=== PATIENT | male | born 1940 | race Caucasian/White ===

== ENCOUNTER 2017-05-13 16:49 | Emergency (ER) | payer MEDICARE, OTHER ==
[~2017-05-13] VITALS: Ht 175.3 cm; Wt 72.6 kg
[2017-05-13] MEDS ORDERED: CITALOPRAM HBR20 MG PO (17:08)
[2017-05-13] MEDS ORDERED: MECLIZINE HCL25 MG PO (18:46)
[2017-05-13] MEDS ORDERED: AUGMENTIN 875-1 EACH PO (19:10)
[2017-05-13] MEDS ORDERED: LEVAQUIN500 MG PO (19:12)
--- NOTE | 2017-05-13 20:30 | EKG ---
[facility] [address] [facility] [place] [address] Signed Atrial-paced rhythm Left bundle branch block Abnormal ECG No previous ECGs available Confirmed by COLLIN COLLAZO MD ([id number]) on 05/13/2017 8:29:52 PM Electronically Signed By: COLLIN COLLAZO MD 05/13/17 2030 PATIENT NAME: NAJMA DORSEY Electrocardiogram DATE OF : 36 PHYSICIAN: COLLIN COLLAZO MD REPORT #: [id number] REPORT IS CONFIDENTIAL AND NOT TO BE RELEASED WITHOUT AUTHORIZATION
== END 2017-05-13 19:50 | disposition home or self-care (01) ==
LOC: ED 16:49
DX: R42 Dizziness and giddiness (principal); J18.9 Pneumonia, unspecified organism; Z95.5 Presence of coronary angioplasty implant and graft; Z90.89 Acquired absence of other organs
CPT/HCPCS: 71045; 80053; 83605; 84484; 85025; 87040; 93005; 93010; 99284

== ENCOUNTER 2017-06-16 14:19 | Inpatient (IN) | payer MEDICARE, OTHER ==
[~2017-06-16] VITALS: Ht 175.3 cm; Wt 75.1 kg
--- OUTSIDE RECORDS SUMMARY | ~2017-06-16 | XMS | Clinical Summary ---
Demographics + + + | Address | [address] | | | [place] [address] | + + + | Home Phone [...] Team Providers + +------+ + | Care Mica Paster Name | Role | Phone | + +------+ + PP | Unavailable | + +------+ + Source Comments JIGNESH is fully live on both [facility] Amb[facility] and [facility] InPatient.[facility] Allergies Not on File Current Medications Not [...]
--- OUTSIDE RECORDS SUMMARY | ~2017-06-16 | XMS | Clinical Summary ---
Demographics + + + | Address | [address] | | | [place] [address] | + + + | Home Phone | | + + + | Preferred Language | Unknown | + + + | Marital Status | | + + + | Zoroastrian Affiliation | Unknown | + + + [...] Team Providers + +------+ + | Care Finish Molder Name | Role | Phone | + +------+ + PP | Unavailable | + +------+ + Source Comments JIGNESH is fully live on both [facility] Amb[facility] and [facility] InPatient.[facility] & [facility] Allergies Not on File Current [...]
[~2017-06-16 14:19] MED LIST: AUGMENTIN 875-1 EACH PO; CITALOPRAM HBR20 MG PO; LEVAQUIN500 MG PO; MECLIZINE HCL25 MG PO
--- OUTSIDE RECORDS SUMMARY | 2017-06-16 17:59 | XMS | Clinical Summary ---
Demographics + + + | Address | [address] | | | [place] [address] | + + + | Home Phone | | + + + | Preferred Language | Unknown | + + + | Marital Status | | + + + | Christianity Affiliation | Unknown | + + + | Race | White | + + + | Ethnic Group | Not or | + + + Author + + + | Organization | Unknown | + + + | Address | Unknown | + + + | Phone | Unavailable | + + + Support +------+ +---------+ + | Name | Relationship | Address | Phone | +------+ +---------+ + ECON | Unknown | | +------+ +---------+ + Care Team Providers + +------+ + | Care Farm Appraiser Name | Role | Phone | + +------+ + PP | Unavailable | + +------+ + Source Comments JIGNESH is fully live on both [facility] Ambulatory and [facility] InPatient.[facility] Allergies Not on File Current Medications Not on file Active Problems Not on file Social History + +-------+ +--------+------+ | Tobacco Use | Types | Packs/Day | Years | Date | | | | | Used | | + +-------+ +--------+------+ | Never Assessed | | | | | + +-------+ +--------+------+ + + + | Sex Assigned at | Date Recorded | | | | + + + | Not on file | | + + + Plan of Treatment + + + + + | Health Maintenance | Due Date | Last Done | Comments | + + + + + | INFLUENZA VACCINE | | | | | (FLU SHOT) | 7 | | | + + + + + Results Not on filefrom Last 3 Months"
[2017-06-16] MEDS ORDERED: CITALOPRAM HBR20 MG PO (18:18)
[2017-06-16] MEDS ORDERED: UNITHROID50 MCG PO (18:18)
[2017-06-16] MEDS ORDERED: FOLIC ACID1 MG PO (18:18)
[2017-06-16] MEDS ORDERED: METHOTREXATE2.5 MG PO (18:20)
[2017-06-16] MEDS ORDERED: LIPITOR40 MG PO (18:20)
[2017-06-16] MEDS ORDERED: HYDROXYCHLOROQ200 MG PO (18:21)
[2017-06-16] MEDS ORDERED: B-125000 MC2 PO (18:22)
[2017-06-16] MEDS ORDERED: FEROSUL325 MG PO (18:22)
[2017-06-16] MEDS ORDERED: ASPIR 8181 MG PO (18:23)
--- NOTE | 2017-06-16 20:10 | NUR ---
IN TO ASSESS PT. IS ALERT AND COOPERATIVE. STOOD AT BEDSIDE TO VOID 175ML ORANGE URINE. PT WOULD PREFER TO NOT HAVE CATHETER. DR COLLAZO CALLED RE URINE OUTPUT. 500ML BOLUS ORDERED.
--- NOTE | 2017-06-16 21:30 | NUR ---
IN WITH PT WITH RT WHILE SALINE NEB GIVEN. PT THEN STOOD AT BEDSIDE TO VOID AND THEN HAVE SHEETS CHANGED HAD BEEN DIAPHORETIC. REED BEING UP WELL. STATES THAT IT FEELS GOOD TO MOVE.
--- NOTE | 2017-06-16 22:42 | NUR ---
FAMILY BROUGHT IN PT CPAP MACHINE FROM HOME. CONTACTED DR COLLAZO AND RECEIVED AN ORDER. RT NOTIFIED.
--- NOTE | 2017-06-17 00:10 | NUR ---
PT HAS CPAP IN PLACE FOR SLEEP. BREIF ASSESSMENT DONE.
--- NOTE | 2017-06-17 01:34 | NUR ---
URINE SENT TO LAB
--- NOTE | 2017-06-17 03:00 | NUR ---
SLEEPING SOUNDLY WITH CPAP IN PLAC.
--- NOTE | 2017-06-17 05:10 | NUR ---
AWAKENED FOR ASSESSMENT. NO C/O EXCEPT BEING THIRSTY AND ASKING ABOUT WATER. INFORMED COULD NOT HAVE WATER UNTIL FURTHER EVALUATION. UP TO VOID AND REED WELL. LAB IN TO DRAW BLOOD.
--- NOTE | 2017-06-17 09:57 | NUR ---
PT UP TO JEFFERSON CHAIR THIS A.M. REQUESTING SOMETHING TO EAT. PT NPO BUT SPEECH EVAL IS ORDER FOR TODAY. IN ROOM. VITAL SIGNS COMPLETED. SPEECH THERAPY HERE AND SWALLOWING STUDY IN PROGRESS.
--- NOTE | 2017-06-17 10:08 | NUR ---
PT RETURNED TO ROOM AFTER AMBULATING - HR 104. WITHIN 5 MINS HR 88-95.
--- NOTE | 2017-06-17 12:17 | NUR ---
SWALLOW STUDY COMPLETED AND PT WAS ABLE TO SWALLOW WITH MINIMAL DIFFICULTY. PT REMAINS UP IN JEFFERSON CHAIR WITH AT BEDSIDE. PT ATE CREAM OF WHEAT FOR LUNCH, ASSESSMENT COMPLETED AND DENIES C/O AT THIS TIME. VITAL SIGNS COMPLETED LUNGS REMAIN WITH RHONCHI IN RIGHT UPPER/LOWER LUNGS.
--- NOTE | 2017-06-17 15:04 | NUR ---
I/O'S COMPLETED, PT REQUESTING CHOCOLATE PUDDING AND REED WELL.
--- NOTE | 2017-06-17 15:33 | NUR ---
PT RESTING IN JEFFERSON CHAIR. STOOD TO VOID 350 MLS CLEAR YELLOW URINE. FAMILY WITH PT.
--- NOTE | 2017-06-17 16:08 | NUR ---
REPORT GIVEN TO MED/SURG NURSE. VITAL SIGNS COMPLETED AND PT TRANSFERRED TO ROOM 121 VIA JEFFERSON CHAIR.
--- NOTE | 2017-06-17 16:50 | NUR ---
PT ARRIVED TO MED/SURG VIA CHAIR ON WHEELS. PT MOVED TO ROOM WITH A VIEW. PT SITUATED IN A WAY THAT HE CAN SEE THE VIEW. FAMILY AT CHAIRSIDE. PT PLACES DINNER ORDER. PT AGREEABLE TO 2ND PIV START. PIV STARTED PER PROTOCOL BY THIS RN. ASSESSEMENT DONE. PT BELONGINGS AT BEDSIDE. PT VERBALIZES UNDERSTANDING OF PLAN OF CARE. PT STATES NO FURTHER REQUESTS OR COMLAINTS AT THIS TIME. CALL LIGHT WITHIN REACH.
--- NOTE | 2017-06-17 17:45 | NUR ---
DINNER ARRIVED ORDERED. PT OBSERVED WHILE EATING. MINIMAL COUGHING SEEN WITH EATING. PT COMPLAINS THAT COFFEE IS TOO THICK. COFFEE THINNED SOME AND HEATED. EDUCATION PROVIDED FOR PT TO WHY COFFEE CANNOT BE THINNED MORE. PT VERBALIZES UNDERSTANDING BUT STATE "I DON'T LIKE IT THAT WAY." VERBALIZES UNDERSTANDING AND REINFORCES TEACHING TO PT. DAMIR STARTED. LIPITOR ORDERED A PILL. THIS RN CHECKED WITH PHARMACY AND PHARMACIST STATES THAT LIPIOTR CAN BE GROUND AND GIVEN GROUND AND IN PUDDING. PT TAKES LIPITOR THIS WAY. PT FINISHING DINNER UNDER NURSE OBSERVATION. CALL LIGHT WITHIN REACH. PT BELONGINGS WITHIN REACH. FAMILY AT BEDSIDE.
--- NOTE | 2017-06-17 18:24 | NUR ---
PT ARRIVED FROM CCU TODAY. HERE FOR RLL PNEUMONIA AND SEPSIS. LUNGS REMAIN WET WITH RONCHI. O2 SATURATIONS REMAIN ABOVE 92% ON ROOM AIR. PT HX OF THROAT CA, WITH REMAINING SWALLOWING DIFFICULTIES. DISPHAGIC GROUND DIET WITH NECTAR THICK DIET FOLLOWED. DM II, NO CBGS ORDERED. PT INDEPENDANT IN ROOM. SOME DIFFICULTIES SPEAKING R/T HX. IV ABX GIVEN ORDRED. 2ND PIV STARTED FOR MULTIPLE IV ABX. URIN OP QUANITITY SUFFICIENT. BM TODAY. SMALL FOOD QUANTITY CONSUMED R/T DIFFICULTY WITH DIET.
--- NOTE | 2017-06-17 19:07 | NUR ---
IN ROOM FOR REPORT, PT IS AWAKE IN CHAIR, AND WOULD LIKE TO TAKE A WALK SOON. PT DENIES PAIN OR FURTHER NEEDS.
--- NOTE | 2017-06-17 20:02 | NUR ---
ROUNDED CHARGE. PATIENT IS RESTING IN RECLINER. PATIENT DENIES ANY COMMENTS, QUESTIONS, OR CONCERNS. NO NEEDS NOTED.
--- NOTE | 2017-06-17 22:20 | NUR ---
ASSESSMENT COMPLETE AND PT IS IN BED WITH CPAP ON. IS STAYING THE NIGHT. RHONCHI AUSCULATED ON RT LUNG FIELD. PT IS A 1PA. REMINDED PT TO COUGH/DEEP BREATHE AND USE IS. PT DENIES PAIN, NAUSEA AND WEAKNESS, CALL LIGHT IS WITHIN REACH, PT WOULD LIKE DOOR AND CURTAIN CLOSED.
--- NOTE | 2017-06-18 01:05 | NUR ---
PT'S IV PUMP WAS BEEPING, PT LYING AWAKE IN BED WITH CPAP ON. EMPTIED URINAL AND PT DENIES FURTHER NEEDS. CALL LIGHT IS WITHIN REACH.
--- NOTE | 2017-06-18 02:19 | NUR ---
EMPTIED PT'S URINAL, CPAP ON, RESPIRATIONS EVEN AND NONLABORED.
--- NOTE | 2017-06-18 05:30 | NUR ---
PT DID WELL THROUGH THE NIGHT WITH CPAP ON. VOIDING QS. LUNGS SOUNDS IN RT LOBES CONTINUE TO SOUND COARSE, PT HAS LOOSE COUGH. PT IS 1PA AND USED CALL LIGHT APPROPRIATELY.
--- NOTE | 2017-06-18 06:21 | NUR ---
BROUGHT PT CRUSHED THYROID MEDICINE IN PUDDING AND NECTAR THICK JUICE. IV ZOSYN INFUSING HOLDING OFF ON VANCO UNTIL VANCO TROUGH IS COMPLETE. PT HAS NO FURTHER REQUESTS AT THIS TIME.
--- NOTE | 2017-06-18 07:10 | NUR ---
GETTING REPORT FROM CAMI CESAR. PATIENT SAID HE DID NOT SLEEP VERY WELL BEING AWAY FROM HOME. AWAITING TROUGH RESULTS TO [facility]. PATIENT GOING TO REST SOMEMORE BEFORE BREAKFAST. INTRODUCED MYSELF AND LET PATIENT KNOW i WOULD BE BACK.
--- NOTE | 2017-06-18 07:30 | NUR ---
PATIENT IS UP AT BEDSIDE AND HE IS DOING WELL, SLEPT WELL. I AM GETTING REPORT FROM CAMI GRIMM AT THIS TIME.
--- NOTE | 2017-06-18 07:30 | NUR ---
Vancomycin trough this morning = 11.5. Increase dose to 1500mg IV q 12 hrs. Begin now
--- NOTE | 2017-06-18 08:49 | NUR ---
BS TAKEN, RN NOTIFIED. PT STATES NO NEEDS AT THIS TIME. CALL LIGHT IN REACH.
--- NOTE | 2017-06-18 10:00 | NUR ---
PATIENT VISITING WITH HIS IN ROOM AWAITING DISCHARGE ORDERS FROM DR. DODD.
--- NOTE | 2017-06-18 10:00 | NUR ---
PATIENT VISITING FAMILY AT BEDSIDE. NO C/O PAIN OR SHORTNESS OF BREATH.
--- NOTE | 2017-06-18 10:07 | NUR ---
PT IS SITTING UP IN CHAIR WATCHING TV. WARM BLANKET GIVEN. PT HAS NO OTHER NEEDS AT THIS TIME. VS AND I&O'S TAKEN AND DOCUMENTED. CALL LIGHT IS IN REACH.
--- NOTE | 2017-06-18 14:56 | NUR ---
VS AND I&O'S TAKEN AND DOCUMENTED. PT HAS NO NEEDS AT THIS TIME. INFORMED PT AND FAMILY TO CALL IF THEY NEEDED ANYTHING. CALL LIGHT IS IN REACH.
--- NOTE | 2017-06-18 16:00 | NUR ---
PATIENT CONTINUES TO STAY IN HIS ROOM, VERY PRIVATE WITH THE DOOR AND CURTAIN CLOSED. PATIENT HAS BEEN VISITING WITH HIS ALL DAY. JUST HAD A VISIT WITH THE PHARMACIST AND HAS ALSO HAD A CONSULT WITH DIETARY TO TEACH HIM HOW TO MAKE HIS LIQUIDS NECTOR THICK.
--- NOTE | 2017-06-18 16:50 | NUR ---
Medications reconciled with physician's chart notes and patient/ interview
--- NOTE | 2017-06-18 17:18 | NUR ---
PATIENT HAS HAD A GOOD DAY. HAS BEEN AT BEDSIDE ALMOST ALL DAY. PATIENT HAS HAD DIETARY TRY AND TEACH HIM HOW TO MAKE NECTOR THICK LIQUIDS. HE HAS EATEN FAIRLY WELL. STILL HAS 2 IV'S PATENT. 18G LAC AND 20G RFA SO THAT ZOSYN AND VANCO CAN BE RUN AT SEPERATE SITES IF THEY OVER LAP. LUGS STILL SOUND FAIRLY JUNKY, BUT IS MOVING GOOD AIR AND SATS, NOT SURE HOW MUCH SOUND IS VIBRATING DOWN FROM HIS THROAT FROM THE CA SURGERY. PATIENT HATES NECTOR THICK LIQUIDS , BUT HAS TAKEN CRUSHED PO MEDS IN PUDDING JUST FINE. PREFERS CHOCOLATE PUDDING.
--- NOTE | 2017-06-18 19:40 | NUR ---
PATIENT ASSSEMENT COMPLETED. PATIENTS IV ABX STARTED. PATIENT DENIES ANY PAIN. PATIENTS BEDDING CHANGED PER REQUEST. PATIENTS REMAINS AT THE BEDSIDE AND IS VERY ATTENTIVE. PATIENT DENIES ANY FURTHER NEEDS AT THIS TIME. PATIENT AND ARE RESTING IN THE RECLINER AND CHAIR WATCHING TV.
--- NOTE | 2017-06-18 20:56 | NUR ---
PATIENTS EVENING MEDCIATIONS GIVEN PER ORDER. PATIENT AND CONTINUE TO REST IN CHAIRS WATCHING TV. NO NEEDS NOTED. CALL LIGHT IN REACH.
--- NOTE | 2017-06-18 21:30 | NUR ---
DAMIR DONE INFUSING. PATIENT ASSISTED INTO BED. NO NEEDS NOTED. CALL LIGHT IN REACH.
--- NOTE | 2017-06-18 22:45 | NUR ---
VITALS AND I&OS DONE AND CHARTED. BEDSIDE TABLE AND CALL LIGHT WITHIN REACH.
--- NOTE | 2017-06-19 00:37 | NUR ---
PATIENT IS RESTING IN BED WEARING HOME CPAP. PATIENT AWOKEN WHEN ROOM WAS ENTERED. PATIENT ASSESED AT THIS TIME. NO NEEDS NOTED. IS ASLEEP ON THE COUCH IN THE ROOM. CALL LIGHT IN REACH.
--- NOTE | 2017-06-19 02:28 | NUR ---
PATIENT IS RESTING IN BED WEARING HOME CPAP. BREATHING IS EVEN AND UNLABORED, RR 16. REMAINS ASLEEP ON THE COUCH. CALL LIGHT IN REACH.
--- NOTE | 2017-06-19 04:19 | NUR ---
PATIENT CALLED AND REQUESTED HIS URINAL TO BE EMPTIED. PATIENT CONTINUES TO WEAR HOME CPAP. PATIENT DENIES ANY FURTHER NEEDS. CALL LIGHT IN REACH.
--- NOTE | 2017-06-19 05:07 | NUR ---
PATIENT RESTED WELL THROUGHTOUT THE SHIFT. PATIENT WORE HOME CPAP WHILE RESTING. PATIENT IS ON RA. PATIENT IS ON DYSPHAGIA GROUND DIET, W/NECTAR THICK LIQUID. PATIENT STRUGGLES WITH TEXTURE OF HIS DIET. PATIENT IS A SBA AND IS STEADY ON HIS FEET. PATIENT IS ON ASPERATION PRECAUTIONS. PATIENTS REMAINS IN THE ROOM AND IS ATTENTIVE TO PATIENTS NEEDS. PATIENT IS AAOX3. PATIENTS SPEECH IS HARD TO UNDERSTAND AT TIMED. PATIENT USES CALLL LIGHT APPROPRIATELY.
--- NOTE | 2017-06-19 06:30 | NUR ---
PATIENTS MORNING MEDICATIONS GIVEN PER ORDER. PATIENT DENIES ANY PAIN OR SOB. PATIENT WAS ABLE TO TAKE PO MEDICATIONS CRUSHED IN CHOCOLATE PUDDING. VITALS TAKEN AND RECORDED. NO NEEDS NOTED. CALL LIGHT IN REACH.
--- NOTE | 2017-06-19 08:35 | NUR ---
st in room to assist patient with breakfast. no other needs at this time.
--- NOTE | 2017-06-19 10:25 | NUR ---
PATIENT SITTING IN CHAIR. FAMILY AT BEDSIDE. PATIENT PLAN OF GETTING IN THE SHOWER WITH DUCT LAYER HELPER HELP. DR. DODD ROUNDED IN ROOM. PLAN TO DISCHARGE PATIENT HOME.
[2017-06-19] MEDS ORDERED: CLINDAMYCIN HC300 MG PO (10:39)
--- NOTE | 2017-06-19 10:42 | NUR ---
PATIENT IS IN TAKING A SHOWER. IS IN THERE WITH HIM BUT I AM OUTSIDE HIS BATHROOM DOOR MAKING SURE EVERYTHING IS OK. THEN HE WILL GET DRESSED.
--- NOTE | 2017-06-19 11:42 | NUR ---
PATIENT FINISHED SHOWER. DRESSED IN OWN CLOTHING. SET UP FOR LUNCH. PHARMACY IN ROOM TO GO OVER DISCHARGE MEDICATION.
== END 2017-06-19 12:25 | disposition home or self-care (01) | DRG 179 ==
LOC: ED 14:19 → CCU 17:58 → MS 06-17 16:26
PROVIDERS: ADMIT Internal Medicine
DX: J69.0 Pneumonitis due to inhalation of food and vomit (principal); I35.0 Nonrheumatic aortic (valve) stenosis; E78.5 Hyperlipidemia, unspecified; E03.9 Hypothyroidism, unspecified; F32.9 Major depressive disorder, single episode, unspecified; M06.9 Rheumatoid arthritis, unspecified; R13.12 Dysphagia, oropharyngeal phase; I49.9 Cardiac arrhythmia, unspecified; Z85.819 Personal history of malignant neoplasm of unspecified site of lip, oral cavity, and pharynx; Z95.0 Presence of cardiac pacemaker; Z92.3 Personal history of irradiation
CPT/HCPCS: 36415; 71045; 80053; 80202; 81001; 83605; 83735; 85025; 87070; 87077; 87186; 87205; 92526; 92610; 94640; J1650; J2543; J3370; J3475; J3480; J7030; J7040; J7050; J7120

== ENCOUNTER 2017-07-07 11:11 | Emergency (ER) | payer MEDICARE, OTHER ==
[~2017-07-07] VITALS: Ht 172.7 cm; Wt 73.5 kg
--- OUTSIDE RECORDS SUMMARY | ~2017-07-07 | XMS | Clinical Summary ---
Demographics + + + | Address | [id number] [place] [address] | | | [place] [address] | + + + | Home Phone | | + + + | Preferred Language | Unknown | + + + | Marital Status | | + + + | Jain Affiliation | None | + + + [...] Team Providers + +------+ + | Care Pipe [address] Service Name | Role | Phone | + [...] + + + + | Zoster Vaccine | | | | | | 9 [...]
--- OUTSIDE RECORDS SUMMARY | ~2017-07-07 | XMS | Clinical Summary ---
Demographics + + + | Address | [id number] [place] [address] | | | [place] [address] | + + + | Home Phone | | + + + | Preferred Language | Unknown | + + + | Marital Status | | + + + | Druze Affiliation | None | + + + [...] Team Providers + +------+ + | Care Pocket Setter Name | Role | Phone | [...]
--- OUTSIDE RECORDS SUMMARY | ~2017-07-07 | XMS | Clinical Summary ---
Demographics + + + | Address | [address] | | | [place] [address] | + + + | Home Phone | | + + + | Preferred Language | Unknown | + + + | Marital Status | | + + + | Rastafarian Affiliation | Unknown | + + + [...] Team Providers + +------+ + | Care Certified Scrum Master Name | Role | Phone | + +------+ + PP | Unavailable | + +------+ + Source Comments JIGNESH is fully live on both [facility] Ambulatory and [facility] InPatient.[facility] Allergies Not on File Current Medications Not [...]
--- OUTSIDE RECORDS SUMMARY | ~2017-07-07 | XMS | Clinical Summary ---
Demographics + + + | Address | [address] | | | [place] [address] | + + + | Home Phone [...] Team Providers + +------+ + | Care Auto Body Estimator Name | Role | Phone | + +------+ + PP | Unavailable | + +------+ + Source Comments JIGNESH is fully live on both [facility] and [facility] InPatient.[facility] Allergies Not on File Current Medications [...]
[~2017-07-07 11:11] MED LIST changes: +ASPIR 8181 MG PO; +B-125000 MC2 PO; +CLINDAMYCIN HC300 MG PO; +FEROSUL325 MG PO; +FOLIC ACID1 MG PO; +HYDROXYCHLOROQ200 MG PO; +LIPITOR40 MG PO; +METHOTREXATE2.5 MG PO; +UNITHROID50 MCG PO
--- NOTE | 2017-07-08 20:49 | EKG ---
[facility] [address] [facility] [place] [address] Signed Atrial-paced rhythm with prolonged AV conduction Left bundle branch block Abnormal ECG When compared with ECG of 13-MAY-2017 17:08, Questionable change in QRS axis T wave inversion less evident in Inferior leads T wave inversion no longer evident in Anterior leads Confirmed by COLLIN COLLAZO MD ([id number]) on 07/08/2017 8:49:15 PM Electronically Signed By: COLLIN COLLAZO MD 07/08/17 2049 PATIENT NAME: NAJMA DORSEY Electrocardiogram DATE OF : 36 PHYSICIAN: COLLIN COLLAZO MD REPORT #: [id number] REPORT IS CONFIDENTIAL AND NOT TO BE RELEASED WITHOUT AUTHORIZATION
== END 2017-07-07 15:49 | disposition home or self-care (01) ==
LOC: ED 11:11
DX: R50.9 Fever, unspecified (principal); Z88.5 Allergy status to narcotic agent; Z79.899 Other long term (current) drug therapy
CPT/HCPCS: 71045; 80053; 81001; 83605; 85025; 87040; 93005; 93010; 96374; 99283; J0696

== ENCOUNTER 2017-07-23 16:33 | Emergency (ER) | payer MEDICARE, OTHER ==
[~2017-07-23] VITALS: Ht 172.7 cm; Wt 73.7 kg
--- OUTSIDE RECORDS SUMMARY | ~2017-07-23 | XMS | Clinical Summary ---
Demographics + + + | Address | [address] [place] [address] | | | [place] [address] | + + + | Home Phone | | + + + | Preferred Language | Unknown | + + + | Marital Status | | + + + | Presybeterian Affiliation | None | + + + | Race | White | + + + | Ethnic Group | Unknown | + + + Author + + + | Author | [facility] | + + + | Organization | [facility] | + + + | Address | Unknown | + + + | Phone | Unavailable | + + + Care Team Providers + +------+ + | Care Medical Lab Technologist Name | Role | Phone | + +------+ + PP | Unavailable | + +------+ + Allergies Not on File Current Medications Not [...] | + + + + + | Tetanus | | | | | | 8 | | | + + + + + | Zoster Vaccine (#1) | | | | | | 9 | | | + + + + + | Pneumo 65+ (1 of 2 - | | | | | PCV13) | 4 | | | + + + + + | IMM Influenza (#1) | | | | | | 7 | | | + + + + + Results Not on filefrom Last 3 Months"
--- OUTSIDE RECORDS SUMMARY | ~2017-07-23 | XMS | Clinical Summary ---
Demographics + + + | Address | [address] | | | [place] [address] | + + + | Home Phone | | + + + | Preferred Language | Unknown | + + + | Marital Status | | + + + | Episcopal Affiliation | Unknown | + + + [...] Team Providers + +------+ + | Care News Cameraman Name | Role | Phone | + +------+ + PP | Unavailable | + +------+ + Source Comments JIGNESH is fully live on both [facility] Ambulatory and [facility] InPatient.[facility] Allergies Not on File Current Medications [...]
[2017-07-23] MEDS ORDERED: AUGMENTIN 875-1 EACH PO (19:12)
== END 2017-07-23 19:37 | disposition home or self-care (01) ==
LOC: ED 16:33
DX: H66.92 Otitis media, unspecified, left ear (principal); Z88.5 Allergy status to narcotic agent; Z79.899 Other long term (current) drug therapy; Z79.82 Long term (current) use of aspirin
CPT/HCPCS: 71046; 80053; 81001; 83605; 85025; 85651; 87040; 87077; 87186; 99283

== ENCOUNTER 2017-08-02 12:11 | Emergency (ER) | payer MEDICARE, OTHER ==
[~2017-08-02] VITALS: Ht 172.7 cm; Wt 71.9 kg
[2017-08-02] MEDS ORDERED: VANCOMYCIN HCL125 MG PT (12:47)
[2017-08-02] MEDS ORDERED: CEFTRIAXON2 GM/50 ML IV (12:47)
[2017-08-02] MEDS ORDERED: PLAVIX75 MG PO (12:48)
--- OUTSIDE RECORDS SUMMARY | 2017-08-02 12:51 | XMS | Clinical Summary ---
Demographics + + + | Address | [address] | | | [place] [address] | + + + | Home Phone | | + + + | Preferred Language | Unknown | + + + | Marital Status | | + + + | Latter-Day Affiliation | Unknown | + + + | Race | White | + + + | Ethnic Group | Not or | + + + Author + + + | Organization | Unknown | + + + | Address | Unknown | + + + | Phone | Unavailable | + + + Support + + +---------+ + | Name | Relationship | Address | Phone | + + +---------+ + | XENIA DORSEY | ECON | Unknown | | + + +---------+ + Care Team Providers + +------+ + | Care Alcohol Still Operator Name | Role | Phone | + +------+ + PP | Unavailable | + +------+ + Source Comments JIGNESH is fully live on both [facility] Ambulatory and [facility] InPatient.[facility] Allergies Not on File Current Medications Not [...]
--- OUTSIDE RECORDS SUMMARY | 2017-08-02 12:51 | XMS | Clinical Summary ---
Demographics + + + | Address | [address] | | | [place] [address] | + + + | Home Phone | | + + + | Preferred Language | Unknown | + + + | Marital Status | | + + + | Congregation Affiliation | Unknown | + + + [...] Team Providers + +------+ + | Care Manager Of Allied Health Services Name | Role | Phone | + +------+ + PP | Unavailable | + +------+ + Source Comments JIGNESH is fully live on both [facility] Ambulatory and [facility] InPatient.[facility] Allergies Not on File Current Medications Not [...]
== END 2017-08-02 14:25 | disposition home or self-care (01) ==
LOC: ED 12:11
DX: A04.72 Enterocolitis due to Clostridium difficile, not specified as recurrent (principal); Z88.5 Allergy status to narcotic agent; Z88.8 Allergy status to other drugs, medicaments and biological substances; Z79.899 Other long term (current) drug therapy; Z79.82 Long term (current) use of aspirin; Z79.2 Long term (current) use of antibiotics; C80.1 Malignant (primary) neoplasm, unspecified
CPT/HCPCS: 99282

== ENCOUNTER 2017-12-07 16:31 | Emergency (ER) | payer MEDICARE, OTHER ==
[~2017-12-07] VITALS: Ht 165.1 cm; Wt 68.3 kg
[~2017-12-07 16:31] MED LIST changes: -ASPIR 8181 MG PO; +BAYER CHEWABLE81 MG PO; +CEFTRIAXON2 GM/50 ML IV; +FIRVANQ25 MG/1 ML PO; +PLAVIX75 MG PO; +VANCOMYCIN HCL125 MG PT
[2017-12-07] MEDS ORDERED: PLAQUENIL200 MG PO (16:48)
[2017-12-07] MEDS ORDERED: PLAVIX75 MG PO (16:48)
--- NOTE | 2017-12-09 13:34 | NUR ---
CHW met with patient on a home visit on 12/08/17. CHW met with patient, son, and . CHW reviewed assessment and went over some of the help that CHW can provide to patients. Patient son Yan stated they were having a hard time finding his father a walker because Dr Menon did not send all the notations needed for insurance coverage. Patient son Yan also stated they were having a hard time with establishing patient with a PCP at [facility] so his dad can be seen at a nearby location. Once CHW left the patient home. CHW called Dr Menon had all documents required for the walker sent to in home medical and then called in home medical and had them review and authorize. Patient walker was available by the end of the day for machine pecan picker, chw notified Yan patient son. CHW called and spoke with Dr Chacon and discussed patient wanting a PCP at the clinic Dr Chacon agreed to set up an apt with patient to establish patient for care. CHW notified Yan patient son and set up the apt for the beginning of January with Dr Chacon.
== END 2017-12-07 19:09 | disposition home or self-care (01) ==
LOC: ED 16:31
DX: R60.9 Edema, unspecified (principal); E77.8 Other disorders of glycoprotein metabolism; Z88.5 Allergy status to narcotic agent; Z88.8 Allergy status to other drugs, medicaments and biological substances; Z79.899 Other long term (current) drug therapy
CPT/HCPCS: 80053; 81001; 85025; 99283

== ENCOUNTER 2017-12-24 09:04 | Inpatient (IN) | payer MEDICARE, OTHER ==
[~2017-12-24] VITALS: Ht 165.1 cm; Wt 70.6 kg
--- OUTSIDE RECORDS SUMMARY | ~2017-12-24 | XMS | Clinical Summary ---
Demographics + + + | Address | [address] | | | [place] [address] | + + + | Home Phone | | + + + | Preferred Language | Unknown | + + + | Marital Status | | + + + | Mormon Affiliation | Unknown | + + + | Race | Unknown | + + + | Ethnic Group | Unknown | + + + Author + + + | Author | [facility] | | | and [place] | + + + | Organization | [facility] | | | and [place] | + + + | Address | Unknown | + + + | Phone | Unavailable | + + + Support + + + + + | Name | Relationship | Address | Phone | + + + + + | Yuri Ghotra | ECON | [address] | | | | | [place] | | | | | [address] | | + + + + + | Najma Ghotra | ECON | [address] | | | | | [place] | | | | | [address] | | + + + + + | Kenna Ghotra | ECON | Unknown | | + + + + + Care Team Providers + +------+ + | Care Security System Sales Consultant Name | Role | Phone | + +------+ + | Mehrdad Menon MD | PP | | + +------+ + Allergies + + + + + + | Active Allergy | Reactions | Severity | Noted | Comments | | | | | Date | | + + + + + + | Lisinopril-Hydrochlo | Other (See Comments) | Low | 10/06/19 | Dizziness | | rothiazide | | | 14 | | + + + + + + | Oxycodone Hcl | Other (See Comments) | Medium | 05/01/20 | aggression | | | | | 10 | | + + + + + + Current Medications + + + +---------+------+------+-------+ | Prescription | Sig. | Disp. | Refills | Star | End | Statu | | | | | | t | Date | s | | | | | | Date | | | + + + +---------+------+------+-------+ | methotrexate 2.5 | Taking 3 tablets by | | | 02/ | | Activ | | mg tablet | mouth once weekly - | | | 08/22 | | e | | | friday | | | 12 | | | + + + +---------+------+------+-------+ | NITROSTAT 0.4 MG | Place 1 tablet under | | | 08/2 | | Activ | | SL tablet | the tongue every 5 | | | 9/20 | | e | | | minutes for up to 3 | | | 14 | | | | | doses as needed for | | | | | | | | chest pain call 911 | | | | | | | | if pain persists. | | | | | | + + + +---------+------+------+-------+ | UNABLE TO FIND | Med Name: Resmed | | | | | Activ | | | AirSense 10 autoset | | | | | e | | | CPAP: 4-15cm | | | | | | + + + +---------+------+------+-------+ | certolizumab pegol | Inject 400 mg under | | | | | Activ | | (CIMZIA) 200 mg/mL | the skin Every 28 | | | | | e | | KIT | days. | | | | | | + + + +---------+------+------+-------+ | ferrous sulfate | Take 1 tablet via | 30 | 0 | 03/3 | | Activ | | 325 mg tablet | G-tube Daily. | tablet | | 0/20 | | e | | | | | | 18 | | | + + + +---------+------+------+-------+ | folic acid 1 mg | Take 1 tablet via | 30 | 0 | 03/3 | | Activ | | tablet | G-tube Daily. | tablet | | 0/20 | | e | | | | | | 18 | | | + + + +---------+------+------+-------+ | Cyanocobalamin | Take 5,000 mcg via | 30 | 0 | 03/3 | | Activ | | (VITAMIN B-12) 5000 | G-tube Daily. | tablet | | 0/20 | | e | | MCG TBDP | | | | 18 | | | + + + +---------+------+------+-------+ | clopidogrel | Take 1 tablet via | 90 | 1 | 03/3 | | Activ | | (PLAVIX) 75 mg | G-tube Daily. | tablet | | 0/20 | | e | | tablet | | | | 18 | | | + + + +---------+------+------+-------+ | levothyroxine | Take 1 tablet via | 30 | 0 | 03/3 | | Activ | | (SYNTHROID) 50 mcg | G-tube Daily. | tablet | | 0/20 | | e | | tablet | | | | 18 | | | + + + +---------+------+------+-------+ | Cholecalciferol | Take 1 capsule via | 30 each | 0 | 03/3 | | Activ | | (VITAMIN D-3) 2000 | G-tube Daily. | | | 0/20 | | e | | units CAPS | | | | 18 | | | + + + +---------+------+------+-------+ | thiamine (VITAMIN | Take 1 tablet via | 90 | 0 | 03/3 | | Activ | | B-1) 100 mg tablet | G-tube 3 times | tablet | | 0/20 | | e | | | daily. | | | 18 | | | + + + +---------+------+------+-------+ | acetaminophen | Take 2 tablets via | 120 | 0 | 03/3 | | Activ | | (TYLENOL) 325 mg | G-tube every 4 hours | tablet | | 0/20 | | e | | tablet | as needed for Pain | | | 18 | | | | | or Fever. | | | | | | + + + +---------+------+------+-------+ | aspirin 81 mg | Take 1 tablet via | 30 | 0 | 03/3 | | Activ | | chewable tablet | G-tube Daily. | tablet | | 0/20 | | e | | | | | | 18 | | | + + + +---------+------+------+-------+ | citalopram | Take 1 tablet via | 30 | 0 | 03/3 | | Activ | | (CELEXA) 20 mg | G-tube Daily. | tablet | | 0/20 | | e | | tablet | | | | 18 | | | + + + +---------+------+------+-------+ | atorvaSTATin | Take 1 tablet via | 90 | 3 | 03/3 | | Activ | | (LIPITOR) 40 mg | G-tube nightly. | tablet | | 0/20 | | e | | tablet | | | | 18 | | | + + + +---------+------+------+-------+ | tocopherol | Take 1 capsule via | 30 | 0 | 03/3 | | Activ | | (VITAMIN E) 400 | G-tube Daily. | capsule | | 0/20 | | e | | units capsule | | | | 18 | | | + + + +---------+------+------+-------+ | hydroxychloroquine | Take 200 mg by mouth | | | 06/ | | Activ | | (PLAQUENIL) 200 mg | Daily. | | | 2/20 | | e | | tablet | | | | 18 | | | + + + +---------+------+------+-------+ | ferrous sulfate | Take 1 tablet by | | | | | Activ | | (IRON) 325 (65 Fe) | mouth Daily. 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 Lerma 05/29/17 Surgeon #1: Dr. Vasquez 06/03/17urgeon #2: Dr. Goldstein | | 07/01/17TS Risk Profile: 4.058% (Final) Incremental STS Risk Factors: (+3%) Frailty | | [place] Heart Failure Classification: III 5-meter walk test: 7.3 | | secHeight: 5'6" Weight: 73.9kg BMI: 26Echocardiogram: 05/29/17AVA: .75 Peak Velocity : | | Mean Gradient: 28 EF%: 40-45% Pulmonary Pressure: 32 AR: Mild MR: Trace TR: | | Trace CTA chest/abdomen/pelvis/gated chest: 05/29/17[facility] Measurements: Reid | | Measurements: TeamDynamixtronic Measurements:Annulus Area: 653 Annulus Area: (see report) | | Annulus Area: 591 Annulus Perimeter: 93 Annulus Perimeter: Annulus Perimeter: | | 86Bilateral Heart Cath: 05/07/17Le ventriculography: Left ventricular size is normal. | | LVEF is calculated at 45-50%. There is no mitral valve regurgitation noted. Left main | | artery: The left main artery is a large caliber vessel that bifurcates into the left | | anterior descending artery and left circumflex artery. Left main artery has diffuse | | disease. Left anterior descending artery: The left anterior descending artery is a | | large caliber vessel that wraps around the apex and gives rise to 2 diagonal branches. | | The vessel has high-grade 85-90% stenosis at the proximal portion. It gives rise to 2 | | diagonal branches. Left circumflex artery: The left circumflex artery is a medium | | caliber vessel that is non dominant. The vessel has mild diffuse disease. It gives | | rise to 2 OM branches. Right coronary artery: The right coronary artery is a large | | caliber vessel that is dominant. The vessel has occluded ostium and stent. It gives | | rise to a PDA and Posterolateral branches. ~By-pass angiography: GARCIA to LAD is Opened, | | SVG to PDA is opened.Carotid Ultrasound: 05/29/17No significant stenosisPFT's: | | 06/10/17DLCO%- 54% FEV1(L)- 2.56 FEV1%- 81%Dental Evaluation: Has upper & lower | | denturesLabs: 05-29-17HGB- 11.3 HCT- 33.5 PLT-183 Cr- 0.88 eGFR- >60 Albumin- | | 3.6 BNP-155TAVR Date: 07/02/17Vendor: Reid Valve size: 29mm Access: TF | | Anesthesia: Moderate (no DERECK) Medications to hold pre-op:NoneTAVR Meeting | | Summary:06/03/17: Review of case; 76 y/o with prior CABG and numerous co-morbidities. | | Moderate CM has developed over the past several years (EF now down to 45%). Review of | | echo notes very bulky valve, even though gradient was only 28. CT notes adequate TF | | access. Team recommends proceeding w/TAVR.Plan for emergent bypass/surgery (if | | needed):Other radha-procedural issues/specialists following: Estrella Gurrola, | | NEGRITA-Rheumatology, Dr. Ronn Patrick, Otolaryngology Discharge Plan: Lives at home with | | ; son assists with transportationContact ronald Heredia with all appointment information: | | [phone] | |No significant stenosis | | | |PFT's: 06/10/17 | |DLCO%- 54% FEV1(L)- 2.56 FEV1%- 81% | | | |Dental Evaluation: Has upper & lower dentures | | | |Labs: 05-29-17 | |HGB- 11.3 HCT- 33.5 PLT-183 Cr- 0.88 eGFR- >60 Albumin- 3.6 BNP-155 | | | |TAVR Date: 07/02/17 | |Vendor: Reid Valve size: 29mm Access: TF Anesthesia: Moderate (no DERECK) | | | |Medications to hold pre-op: | |None | | | |TAVR Meeting Summary: | |06/03/17: Review of case; 76 y/o with prior CABG and numerous co-morbidities. Moderate CM brenner s developed over the past several years (EF now down to 45%). Review of echo notes very bulk y valve, even tho | |ugh gradient was only 28. CT notes adequate TF access. Team recommends proceeding w/TAVR. | |Plan for emergent bypass/surgery (if needed): | |Other radha-procedural issues/specialists following: NEGRITA [place]-Rheumatology, Dr. Ronn Patrick, Otolaryngology | |Discharge Plan: Lives at home with ; son assists with transportation | | | |Contact ronald Heredia with all appointment information: [phone] | + + + + + | Problem | Noted Date | + + + | Idiopathic hypotension | 10/17/2017 | + + + | C. difficile colitis | 08/01/2017 | + + + | Acute bacterial endocarditis | 08/01/2017 | + + + | Diarrhea, unspecified type | 07/31/2017 | + + + | Severe protein-calorie malnutrition (HCC) | 07/28/2017 | + + + | Gram-positive cocci bacteremia | 07/25/2017 | + + + + + | Last Assessment & Plan: Given recent TAVR, certainly | | concerned about possible endocarditis although echo without | | evidence of vegetation notedTransesophageal echocardiogram | | contraindicated by previous neck dissection and radiation therapy | | with poor ability to swallow.Continue IV antibiotics per primary | | team, awaiting home infusion plan | + + + + + | Elevated troponin | 07/25/2017 | + + + + + | Last Assessment & Plan: Very minimal troponin elevation in | | setting of bacteremia. Likely type 2 HI. Prior cardiac | | catheterization showed patent bypass grafts. 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 | 07/03/2017 | | failure) (HCC) | | + + + + + | Last Assessment & Plan: No evidence of volume overload on | | examI&O with unmeasured urine Lungs clear and no edema noted | | 55-60% per transthoracic echo 07/24/17 | |55-60% per transthoracic echo 07/24/17 | + + + + + | Chronic pulmonary aspiration | 07/03/2017 | + + + + + | Last Assessment & Plan: Known previous aspiration; as noted | | earlier, possible cause of positive blood cultures | + + + + + | History of SBE (subacute bacterial endocarditis) | 07/03/2017 | + + + | Cardiomyopathy (HCC) | 05/16/2017 | + + + + + | Last Assessment & Plan: | + + + + + | Bilateral inguinal hernia | 10/31/2015 | + + + | Beta Tamar Use | 10/31/2015 | + + + | Nonrheumatic aortic valve stenosis | 10/25/2015 | + + + + + | Overview: Echocardiogram limited 07/25/17 Normally | | functioning 27 bioprosthetic aortic valve. No evidence of mass or | | vegetation noted. No obvious vegetations on [place] | | valves.07/02/17: Status post transfemoral TAVR with 29 mm Edjackson S | | 3 Last Assessment & Plan: Status post TAVR | | 07/02/17Transthoracic Echo 07/24/17Will need follow up scheduled | | after DC. | + + + + + | Rheumatoid arthritis (HCC) | 08/28/2015 | + + + | Carcinoma of base of tongue (HCC) | 08/08/2015 | + + + | Oropharyngeal dysphagia | 08/08/2015 | + + + + + | Last Assessment & Plan: Previous suspected aspiration | | Speech evaluation completed, PEG tube placement 07/30 | + + + + + | Osteoarthritis of hand | 05/16/2015 | + + + | Pacemaker reprogramming/check DO NOT DELETE | 02/24/2015 | + + + | Difficult airway for intubation | 08/30/2014 | + + + + + | Overview: History of failed intubation in 2008. Despite | | limited mobility of chin/neck and mouth opening, the patient is a | | surprisingly easy mask ventilation as of 08/30/2014. | + + + + + | Mason's palsy | 08/09/2014 | + + + | Malignant neoplasm of tongue (HCC) | 08/09/2014 | + + + | DYSPHAGIA NEC | 08/09/2014 | + + + | PHx of colonic polyps | 10/28/2013 | + + + + + | Overview: ICD-10 Record update | + + + + + | Sinoatrial node dysfunction (HCC) with BRADYCARDIA | 06/17/2011 | + + + + + | Overview: Status post Medtronic dual-chamber permanent | | pacemaker implantation in 03/2011. | + + + + + | Essential hypertension | 06/17/2011 | + + + + + | Last Assessment & Plan: Blood pressure appears to be | | adequately controlled | + + + + + | Hyperlipidemia, mixed | 06/17/2011 | + + + | JULIANNE - Uses CPAP | 06/17/2011 | + + + | PACEMAKER, PERMANENT, 03/11/11, MEDTRONIC - SUW | 03/11/2011 | + + + + + | Overview: Formatting of this note may be different from the | | original. MODEL NAME MODEL# SERIAL# DATE IMPLANTED GENERATOR | | Medtronic Adapta [id number] 03/11/2011 RV LEAD Medtronic | | Active bipolar Capsurefix 4076/52 cm [id number] 03/11/2011 A LEAD | | Medtronic Active bipolar Capsurefix 4076/45 cm [id number] | | 03/11/2011 | + + + + + | POLYP-COLON | 10/02/2010 | + + + | SPINAL STENOSIS, LUMBAR | | + + + | CERVICAL SPONDYLOSIS WITHOUT MYELOPATHY | | + + + | Hypothyroidism | | + + + | CERVICAL RADICULOPATHY | | + + + | Depression | | + + + | Rheumatoid aortitis | | + + + | Coronary artery disease involving [place] coronary artery of | | | [place] heart without angina pectoris | | + + + + + | Overview: Echocardiogram 07/24/17 showed normal left | | ventricular cavity size. There is septal dyskinesis with | | otherwise normal regional wall motion and mild concentric LVH. | | Ejection fraction is visually estimated at 55-60%. Aortic valve | | is echodense suggestive of prior replacement with borderline to | | mild functional stenosis without insufficiency. Peak velocity is | | measured at 2 m/s. Left atrium is mildly enlarged.Left Heart Cath | | 05/07/2017 Severe 2 vessel coronary artery disease; high grade | | 80-85% stenosis at the proximal portion of the LAD, occluded | | ostial stent of the dominant RCA. By-pass angiography: GARCIA to | | LAD is Opened, SVG to PDA is opened. There is a right dominate | | circulation. Moderately reduced LV systolic function with an EF | | of 40-45%. Systemic blood pressure is normal. There was | | successful Minx placement to the puncture site in the right | | femoral artery.Echocardiogram 04/17/17 Normal left ventricular | | size and wall thickness. There is a moderate global hypokinesis | | of the left ventricle. Overall, left ventricular systolic | | function is moderately decreased. LVEF is 40-45%. Evidence of a | | sigmoid septum. Bouncing septum. Mildly thickened and calcified | | trileaflet aortic valve with moderate calcific aortic valve | | stenosis. There is a mild aortic valve insufficiency. Normal | | right-sided pressure. Not well-visualized IVC. When compared to | | echocardiography on 01/10/15, left ventricular dysfunction is | | significantly reduced.Coronary artery bypass grafting x2: Left | | internal mammary to left anterior descending, saphenous vein | | graft to right posterior descending artery with Endoscopic vein | | harvest on 01/26/2014. Echocardiogram 01/24/14 Normal left | | ventricular size with mild concentric left ventricular | | hypertrophy. Left ventricular systolic function is preserved. | | LVEF is 55-60%. Grade 1 left ventricular diastolic dysfunction, | | mildly thickened and calcified trileaflet aortic valve with mild | | to moderate calcific aortic valve stenosis. There is a mild | | aortic valve insufficiency. Mild mitral valve regurgitation, mild | | tricuspid valve vegetation, normal right-sided pressure. When | | compared to echo cardiology on 08/12/11, aortic valve stenosis is a | | new finding. Cardiac Cath 01/17/14 High grade obstructive | | coronary artery disease as detailed above, 99% in-stent | | restenosis at the ostium of the RCA. This also 75-80% sequential | | stenosis at the proximal and midportion of the RCA. There is a co | | dominate circulation. Left ventricular function to be assessed | | by echocardiogram. Systemic blood pressure is mildly elevated. | | Status post abnormal treadmill stress test 02/01/[address] | | depression in V3 and V4 associated with chest pain. Status post | | left heart catheterization by Dr. Garcia at [facility] | | Center on 02/01/10 showing 90% stenosis of the proximal RCA with | | luminal irregularities mid and proximal LAD and circumflex. | | Status post successful percutaneous intervention with stenting of | | the ostium of the RCA with Promus 4 X 15 mm stent. Recommended | | to be on Plavix for one year, on 02/02/10, by Dr. Obrien, at | | [facility]. Last Assessment & Plan: | + + + +---+ | Difficult intubation | | + +---+ + + | Overview: squamous cell carcinoma of the base of the tongue, | | Surgery at [facility], XRT at [facility]. | + + + +---+ | Dysphagia | | + +---+ | Periodic limb movements of sleep | | + +---+ Resolved Problems + + + + | Problem | Noted | Resolved | | | Date | Date | + + + + | Chest pain | 01/04/20 | | | | 15 | 8 | + + + + + + | Overview: Nuclear Stress Test 01/12/15 The Lexiscan EKG is | | non diagnostic due to underlying DDD paced rhythm. Normal | | Lexiscan Tetrofosmin myocardial perfusion imaging study. Normal | | left ventricular size, wall thickness and motion. Left | | ventricular systolic function is preserved. Left ventricular | | ejection fraction is 60%.Echocardiogram 01/10/15 Normal left | | ventricular size, wall thickness and motion. Preserved left | | ventricular systolic function. LVEF is 55-60%. Grade 1 left | | ventricular diastolic dysfunction. Mildly thickened and | | calcified trileaflet aortic valve with a moderate calcific aortic | | valve stenosis. There is a mild aortic valve insufficiency. Mild | | mitral valve regurgitation, mild tricuspid valve regurgitation. | | Normal right-sided pressure. Not well-visualized IVC. | + + + +---+ + | DIABETES MELLITUS, TYPE II | | | | | | 8 | + +---+ + Encounters +--------+---------+ + + + | Date | Type | Specialty | Care Team | Description | +--------+---------+ + + + | 10/20/ | Office | | Ronn Patrick MD | Squamous cell | | 2017 | Visit | | | carcinoma in situ | | | | | | (SCCIS) of lateral | | | | | | portion of tongue | | | | | | (Primary Dx); | | | | | | Impacted cerumen of | | | | | | both ears | +--------+---------+ + + + | 10/17/ | Office | | Taylor Heard, | Sinoatrial node | | 2018 | Visit | | LAST MODEL MAKER | dysfunction (HCC) | | | | | | with BRADYCARDIA | | | | | | (Primary Dx); | | | | | | Nonrheumatic aortic | | | | | | valve stenosis; | | | | | | Coronary artery | | | | | | disease involving | | | | | | [place] coronary | | | | | | artery of [place] | | | | | | heart without angina | | | | | | pectoris; | | | | | | Hyperlipidemia, | | | | | | mixed; PACEMAKER, | | | | | | PERMANENT, 03/11/11, | | | | | | MEDTRONIC - SUW; | | | | | | Pacemaker | | | | | | reprogramming/check | | | | | | DO NOT DELETE; | | | | | | Cardiomyopathy, | | | | | | unspecified type | | | | | | ([facility]); Chronic | | | | | | combined systolic | | | | | | and diastolic CHF | | | | | | (congestive heart | | | | | | failure) ([facility]) | +--------+---------+ + + + from Last 3 Months Immunizations + + + + | Name | Dates Previously Given | Next Due | + + + + | INFLUENZA 63 Y OR >, | 02/16/2017 | | | TRIVALENT HIGH-DOSE | | | + + + + Family History + + +-------+ + | Medical History | Relation | Name | Comments | + + +-------+ + | Cancer | Father | | | + + +-------+ + | Cancer | Mother | | | + + +-------+ + | No Known Problems | Sister | Karen | | + + +-------+ + | Diabetes | Son | | | + + +-------+ + + +-------+ + + | Relation | Name | Status | Comments | + +-------+ + + | Father | | | Prostate cancer(colon?) dementia, | | | | (Age | hypertension | | | | 83) | | + +-------+ + + | Mother | | | Pancreatic cancer | | | | (Age | | | | | 81) | | + +-------+ + + | Sister | Karen | Alive | diabetes | + +-------+ + + | Son | | Alive | | + +-------+ + + Social History + +-------+ +--------+------+ | Tobacco Use | Types | Packs/Day | Years | Date | | | | | Used | | + +-------+ +--------+------+ | Never Smoker | | | | | + +-------+ +--------+------+ + +---+---+---+ | Smokeless Tobacco: | | | | | Never Used | | | | + +---+---+---+ + + | Tobacco Cessation: Counseling Given: No | + + + + +---------+ + | Alcohol Use [...] on file | | + + + Last Filed Vital Signs + + + + | Vital Sign | Reading | Time Taken | + + + + | Blood Pressure | 82/50 | 10/17/2017925 PDT | + + + + | Pulse | 73 | 10/20/2017908 PDT | + + + + | Temperature | 36.7 C (98 F) | 08/01/2017699 PDT | + + + + | Respiratory Rate | 16 | 10/20/2017908 PDT | + + + + | Oxygen Saturation | 96% | 10/20/2017908 PDT | + + + + | Inhaled Oxygen | - | - | | Concentration | | | + + + + | Weight | 73.5 kg (162 lb) | 10/20/2017908 PDT | + + + + | Height | 170.2 cm (5' 7") | 10/20/2017908 PDT | + + + + | Body Mass Index | 25.37 | 10/20/2017908 PDT | + + + + Plan of Treatment +--------+---------+ + + + | Date | Type | Specialty | Care Team | Description | +--------+---------+ + + + | 04/16/ | Office | | Taylor Heard, | | | 2017 | Visit | | [facility] [address] | | | | | | [address] [place] | | | | | | [id number] | | | | | | | | +--------+---------+ + + + | 09/01/ | Office | | Moris Hassan | | | 2018 | Visit | | MD Jaison Pascual | | | | | | [address] [place] | | | | | | [place] [address] | | | | | | [phone] | | | | | | | | +--------+---------+ + + + + + + + + | Health Maintenance | Due Date | Last Done | Comments | + + + + + | Vaccine: | | | | | Dtap/Tdap/Td (1 - | 8 | | | | Tdap) | | | | + + + + + | Vaccine: Zoster (1 | | | | | of 2) | 9 | | | + + + + + | Vaccine: | | | | | Pneumococcal 65+ | 4 | | | | High/Highest Risk (1 | | | | | of 2 - PCV13) | | | | + + + + + | Vaccine: Influenza | | 02/16/2017 | | | (#1) | 8 | | | + + + + + Implants + +--------+--------+ +--------+--------+--------+ | Implanted | Type | Area | Manufacture | Device | Expira | Model | | | | | r | | tion | / | | | | | | Identi | Date | Serial | | | | | | fier | | / Lot | + +--------+--------+ +--------+--------+--------+ | Medtronic Adapta Dual | Pacema | Left: | MEDTRONIC - | | | [id number] | | Lead-03/11/2011Implanted: | ker | Chest | MEDT | | | | | 03/11/2011 by Jose, | | Wall | | | | /[id number] | | MD Jose Juan (Quantity not on | | | | | | [id number] | | file)Explanted: | | | | | | / | + +--------+--------+ +--------+--------+--------+ | Kit Hrt Vlv Tavr Mattie 3 | Tissue | | REID | | 04/24/ | [id number] | | 29mm - [id number]: | Heart | | LIFESCIENCE | | 2018 | 29A | | Qty: 1 on 07/02/2017 by | Valve | | S LLC - | | | /[id number] | | Roverto Goldstein MD | | | EDLS | | | 21 / | + +--------+--------+ +--------+--------+--------+ | Graft Patch Montello-Sancho 1x5x10 - | | Right: | WLGO | | 11/02/ | [id number] | | [id number]: Qty: 1 | | Face | | | 2014 | [id number] / | | on 08/30/2014 by Ronn Patrick | | | | | | | Manav Mueller MD | | | | | | /[id number] | | | | | | | | 25 | + +--------+--------+ +--------+--------+--------+ | Mesh Ultrapro 2.4inx4.3in - | | Right: | JJHCS | | 05/02/ | [id number] / | | [id number]: Qty: 1 on | | | ETHICON | | 2019 | | | 11/01/2015 by Ollie Cortez, | | Inguin | ENDO -JESSICA | | | /[id number] | | MD | | al | 867 - | | | JWO | | | | | ETHE | | | | + +--------+--------+ +--------+--------+--------+ | [employer]esh Ultra[employer] 2.4inx4.3in - | | Left: | JJHCS | | 05/02/ | UMS3 / | | [id number]: Qty: 1 on | | Inguin | ETHICON | | 2020 | | | 11/01/2015 by Ollie Cortez, | | al | ENDO -JESSICA | | | /[id number] | | MD | | | 867 - | | | JWO | | | | | ETHE | | | | + +--------+--------+ +--------+--------+--------+ Procedures + +--------+ + + + | Procedure Name | Priori | Date/Time | Associated Diagnosis | Comments | | | ty | | | | + +--------+ + + + | DEVICE INTERROGATION | Routin | 10/17/2017 | Sinoatrial node | Results for this | | | e | 0000 PDT | dysfunction (HCC) | procedure are in the | | | | | with BRADYCARDIA | results section. | | | | | PACEMAKER, | | | | | | PERMANENT, 03/11/11, | | | | | | [employer] - SUW | | | | | | Pacemaker | | | | | | reprogramming/check | | | | | | DO NOT DELETE | | + +--------+ + + + from Last 3 Months Results Device Interrogation (10/17/2017) + + + | Narrative | Performed At | + + + | Taylor Heard, | [facility] | | LAST MODEL MAKER 10/17/2017 14:22 PATIENT NAME: Najma Omalley | | | [place] : 1940: AGE: 76 y.o. Device | | | In-office Evaluation Report 10/17/2017 Reason for evaluation: | | | routineIndication for device: ICD-10-CM ICD-9-CM 1. Sinoatrial | | | node dysfunction (HCC) with BRADYCARDIA I49.5 427.81 Device | | | Interrogation 2. Nonrheumatic aortic valve stenosis I35.0 424.1 3. | | | Coronary artery disease involving [place] coronary artery of [place] | | | heart without angina pectoris I25.10 414.01 4. Hyperlipidemia, | | | mixed E78.2 272.2 5. PACEMAKER, PERMANENT, 03/11/11, [employer] - | | | SUW Z95.0 V45.01 Device Interrogation 6. Pacemaker reprogramming/check | | | DO NOT DELETE Z45.018 V53.31 Device Interrogation 7. Cardiomyopathy, | | | unspecified type (HCC) I42.9 425.4 8. 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 Idiopathic hypotension I95.0 458.9 | | | Patient was seated and device was interrogated (with programming | | | changes made). Test was performed and interpreted by me. Device | | | parameters, battery status, percentages pacing and significant | | | arrhythmias were reviewed. Heart rate histograms were assessed for | | | adequate heart rate response and any alerts reviewed. Appropriate lead | | | impedance testing was performed. Pacing impedances were reviewed for | | | any significant changes. Sensing tests were performed by decreasing | | | LRL. Adequacy of pacing thresholds were tested by increasing LRL for | | | each lead and recorded for loss of capture. Final outputs were | | | assessed for adequate safety margins. Summary of findings:Events:1 | | | high ventricular rates 06/25/17 lasting 18 seconds EGM shows atrial | | | tachycardia with rate 192 beats per minute.Single PVCs 95,646. PVC | | | runs 83. Heart rate histogram shows excellant distribution. Atrial | | | pacing 93.8%, Ventricular pacing 1.6%.There is a normal and stable | | | device function.Estimated remaining battery longevity is 4.5 | | | years.Current underlying rhythm: sinus bradycardia with rate 53 beats | | | per minute.Please see the scanned [facility] report and device PDF for | | | further details. | | |parameters, battery status, percentages pacing and significant | | |arrhythmias were reviewed. Heart rate histograms were assessed | | |for adequate heart rate response and any alerts reviewed. | | |Appropriate lead impedance testing was performed. Pacing | | |impedances were reviewed for any significant changes. Sensing | | |tests were performed by decreasing LRL. Adequacy of pacing | | |thresholds were tested by increasing LRL for each lead and | | |recorded for loss of capture. Final outputs were assessed for | | |adequate safety margins. | | | | | |Summary of findings: | | |Events:1 high ventricular rates 06/25/17 lasting 18 seconds EGM | | |shows atrial tachycardia with rate 192 beats per minute. | | |Single PVCs 95,646. PVC runs 83. | | |Heart rate histogram shows excellant distribution. Atrial pacing | | |93.8%, Ventricular pacing 1.6%. | | |There is a normal and stable device function. | | |Estimated remaining battery longevity is 4.5 years. | | |Current underlying rhythm: sinus bradycardia with rate 53 beats | | |per minute. | | |Please see the scanned [facility] report and device PDF for further | | |details. | | + + + + + | Procedure Note | + + | Taylor Heard ARNP - 10/17/2017 0900 PDT Formatting of this note may be different | | from the original.PATIENT NAME: Najma Ghotra : 1940: AGE: | | 76 y.o.Device In-office Evaluation Report10/17/2017 Reason for evaluation: | | routineIndication for device: ICD-10-CM ICD-9-CM 1. Sinoatrial node dysfunction (HCC) | | with BRADYCARDIA I49.5 427.81 Device Interrogation 2. Nonrheumatic aortic valve | | stenosis I35.0 424.1 3. Coronary artery disease involving [place] coronary artery of | | [place] heart without angina pectoris I25.10 414.01 4. Hyperlipidemia, mixed E78.2 272.2 | | 5. PACEMAKER, PERMANENT, 03/11/11, [employer] - SUW Z95.0 V45.01 Device Interrogation | | 6. Pacemaker reprogramming/check DO NOT DELETE Z45.018 V53.31 Device Interrogation 7. | | Cardiomyopathy, unspecified type (HCC) I42.9 425.4 8. Chronic combined systolic and | | diastolic CHF (congestive heart failure) (HCC) I50.42 428.42 428.0 9. Idiopathic | | hypotension I95.0 458.9 Patient was seated and device was interrogated (with | | programming changes made). Test was performed and interpreted by me. Device parameters, | | battery status, percentages pacing and significant arrhythmias were reviewed. Heart | | rate histograms were assessed for adequate heart rate response and any alerts reviewed. | | Appropriate lead impedance testing was performed. Pacing impedances were reviewed for | | any significant changes. Sensing tests were performed by decreasing LRL. Adequacy of | | pacing thresholds were tested by increasing LRL for each lead and recorded for loss of | | capture. Final outputs were assessed for adequate safety margins.Summary of | | findings:Events:1 high ventricular rates 06/25/17 lasting 18 seconds EGM shows atrial | | tachycardia with rate 192 beats per minute.Single PVCs 95,646. PVC runs 83. Heart rate | | histogram shows excellant distribution. Atrial pacing 93.8%, Ventricular pacing | | 1.6%.There is a normal and stable device function.Estimated remaining battery longevity | | is 4.5 years.Current underlying rhythm: sinus bradycardia with rate 53 beats per | | minute.Please see the scanned [facility] report and device PDF for further details. | | | |Patient was seated and device was interrogated (with programming changes made). Test was p erformed and interpreted by me. Device parameters, battery status, percentages pacing and si gnificant arrhythmias were | |reviewed. Heart rate histograms were assessed for adequate heart rate response and any aler ts reviewed. Appropriate lead impedance testing was performed. Pacing impedances were review ed for any significant changes. | |Sensing tests were performed by decreasing LRL. Adequacy of pacing thresholds were tested b y increasing LRL for each lead and recorded for loss of capture. Final outputs were assessed for adequate safety margins. | | | |Summary of findings: | |Events:1 high ventricular rates 06/25/17 lasting 18 seconds EGM shows atrial tachycardia wit h rate 192 beats per minute. | |Single PVCs 95,646. PVC runs 83. | |Heart rate histogram shows excellant distribution. Atrial pacing 93.8%, Ventricular pacing 1.6%. | |There is a normal and stable device function. | |Estimated remaining battery longevity is 4.5 years. | |Current underlying rhythm: sinus bradycardia with rate 53 beats per minute. | |Please see the scanned [facility] report and device PDF for further details. | + + + +---------+ + + | Performing | Address | City/State/Zipcode | Phone Number | | Organization | | | | + +---------+ + + | [facility] | | | | + +---------+ + + from Last 3 Months Insurance + +--------+ +--------+ + + | Payer | Benefi | Subscriber | Type | Phone | Address | | | t Plan | ID | | | | | | / | | | | | | | Group | | | | | + +--------+ +--------+ + + | MEDICARE | MEDICA | [id number] | Medica | [phone]- | | | | RE | | re | [phone] | | | | PART A | | | | | | | AND B | | | | | + +--------+ +--------+ + + | MODA | MODA | [id number] | Indemn | [phone] [address] [address] | | | HEALTH | | ity | [phone] | [place] [address] | | | MDCR | | | | | | | SUPPL | | | | | + +--------+ +--------+ + + + +--------+ +--------+ + + | Guarantor Name | Accoun | Relation to | Date | Phone | Billing Address | | | t Type | Patient | of | | | | | | | | | | + +--------+ +--------+ + + | NAJMA GHOTRA | Person [birth year] Self [birth year] Home: | [address] | | [place] | [place] | | 1941 | [phone] [place] | | | [place] | | | [phone] | [phone] | + +--------+ +--------+ + +
--- OUTSIDE RECORDS SUMMARY | ~2017-12-24 | XMS | Clinical Summary ---
Demographics + + + | Address | [address] | | | [place] [address] | + + + | Home Phone | | + + + | Preferred Language | Unknown | + + + | Marital Status | | + + + | Confucianism Affiliation | Unknown | + + + [...] Team Providers + +------+ + | Care Compression Molding Machine Setter Name | Role | Phone | + +------+ + PP | Unavailable | + +------+ + Source Comments JIGNESH is fully live on both [facility] and [facility] Allergies Not on File Current Medications [...] | | | | (FLU SHOT) | 8 | | | + + + + + Results Not on filefrom Last 3 Months"
--- OUTSIDE RECORDS SUMMARY | ~2017-12-24 | XMS | Encounter Summary ---
Demographics + + + | Address | [address] | | | [place] [address] | + + + | Home Phone | | + + + | Preferred Language | Unknown | + + + | Marital Status | | + + + | Restorationist Affiliation | Unknown | + + + | Race | Unknown | + + + | Ethnic Group | Unknown | + + + Author + + + | Author | [facility] | | | and [place] | + + + | Organization | [facility] | | | and [place] | + + + | Address | Unknown | + + + | Phone | Unavailable | + + + Support + + + + + | Name | Relationship | Address | Phone | + + + + + | Yuri Ghotra | ECON | [address] | | | | | [place] | | | | | [address] | | + + + + + | Fabricio Ghotra | ECON | [address] | | | | | [place] | | | | | [address] | | + + + + + | Kenna Ghotra | ECON | Unknown | | + + + + + Care Team Providers + +------+ + | Care Salvage Engineering Technician Name | Role | Phone | + +------+ + | Mehrdad Menon MD | PCP | | + +------+ + Reason for Visit + + + | Reason | Comments | + + + | Follow-up | | + + + | Coronary Artery | | | Disease | | + + + | Cardiomyopathy | | + + + | Congestive Heart | | | Failure | | + + + | Bradycardia | | + + + | Device Check | | | (In-office) | | + + + | Hypertension | | + + + Encounter Details +--------+---------+ + + + | Date | Type | Department | Care Team | Description | +--------+---------+ + + + | 10/17/ | Office | [facility] [place] | Taylor Heard, | Sinoatrial node | | 2017 | Visit | CARDIOLOGY [address] | FOREIGN STUDENT ADVISER TEACHER [address] | dysfunction (HCC) | | | | [address], | [place], [place] | with BRADYCARDIA | | | | [place] [address] | [phone] | (Primary Dx); | | | | [phone] | | Nonrheumatic aortic | | | | | | valve stenosis; | | | | | | Coronary artery | | | | | | disease involving | | | | | | umatilla tribe coronary | | | | | | artery of umatilla tribe | | | | | | [...] type | | | | | | (HCC); Chronic | | | | | | combined systolic | | | | | | and diastolic CHF | | | | | | (congestive heart | | | | | | failure) ([facility]) | +--------+---------+ + + + Social History [...] on file | | + + + as of this encounter Last Filed Vital Signs + + + + | Vital Sign | Reading | Time Taken | + + + + | Blood Pressure | 82/50 | 10/17/2017925 PDT | + + + + | Pulse | 76 | 10/17/2017925 PDT | + + + + | Temperature | - | - | + + + + | Respiratory Rate | 12 | 10/17/2017925 PDT | + + + + | Oxygen Saturation | - | - | + + + + | Inhaled Oxygen | - | - | | Concentration | | | + + + + | Weight | 73.8 kg (162 lb 11.2 | 10/17/2017925 PDT | | | oz) | | + + + + | Height | 170.2 cm (5' 7") | 10/17/2017925 PDT | + + + + | Body Mass Index | 25.48 | 10/17/2017925 PDT | + + + + in this encounter Instructions Patient Instructions - Taylor Heard ARNP - 10/17/2017 0900 PDT 1. You can stop the clopidogrel (Plavix) after 12/30/17. At that time, you should continue t he aspirin 81 mg daily alone. 2. Would expect you to have follow up with Dr. Lerma around end of June/beginning jul with echocardiogram (ultrasound of your heart) to recheck valve at that time. 3. Recommend you add one more large syringe of water with breakfast and lunch to help maint ain hydration. 4. Recommend you use the coban wrap with gauze for bleeding and skin tears, rather than ban dages with adhesive, at least until you are off the clopidogrel. 5. Return in 6 months for office visit and device interrogation, or sooner with concerns.in this encounter Progress Notes Taylor Heard ARNP - 10/17/2017 0900 PDTFormatting of this note may be different from the original. PATIENT NAME: Fabricio Ghotra : 1940: AGE: 76 y.o. PRIMARY CARE: Mehrdad Menon MD OUTPATIENT FOLLOW UP VISIT Date of Service: 10/17/2017 HISTORY OF PRESENT ILLNESS: Fabricio Ghotra is a 76 y.o. male with a history of coronary artery disease post an gioplasty and stent on the proximal RCA in February 2010, status post CABG x2 in 01/26/14, car diomyopathy, with heart failure with mid-rangeejection fraction, hypertension, hyperlipide benoit, symptomatic bradycardia status post DDD permanent pacemaker placement on 03/11/11, type 2 diabetes, and arthritis. He is being seen today for follow up and device interrogation. He was last seen 07/17/17 at which time he had no changes in his medical regimen. He was r eferred to cardiac rehab at [facility] Since that time, he was admitted to [facility] 07/24/17 for bacteremia and G-tube was placed, and PICC line, an d was given antibiotics, on IV vanco for awhile due to concern for endocarditis with his rec ent TAVR. His echocardiogram looked good with no evidence of vegetation, aortic valve well s eated with only mild functional stenosis. He was discharged home on 08/01/17 with home healt [place]. Today he reports home health has since been discontinued and he is doing his own tube fe edings. He is supposed to do 6-1/2 containers of tube feeding and today but he is only able to tolerate about 4 per day. He also puts water through there, but only 120 mL 3 times chastity ly. He really doesn't drink other liquids except some coffee in the morning. This has been a chronic problem for him with mild dehydration due to his swallowing difficulties. He has n't tried giving himself more water as it hasn't occurred to him. He has managed to gain a little weight, however which is an improvement for him, as prior to the G-tube his nutrition al intake was very poor. He notes that he bruises and bleeds easily with skin tears and cee ry time puts a Band-Aid on and then takes it off he gets another skin tear where the Band- d was adhesed to his skin. This is his main complaint today. He has had a poor energy level chronically, which is unchanged. He tries to stay active. He is doing a lot of projects in the yard and is eager to return home from his appointment lavern enriquez to trim some trees. He tolerates this activity pretty well, with the only concern that sometimes he has increased skin tears from doing yard work when working in the bushes, etc. He enjoys visiting family in his spare time, and he has a family reunion planned in early January. He has not had any chest pain or discomfort at rest or with exertion. He has n ot noticed shortness of breath. He has occasional lightheadedness when standing quickly, wh ich is unchanged and not bothersome to him. He has not noticed palpitations. He has not brenner d leg swelling. MEDICAL, SURGICAL, AND PERSONAL HISTORY Past Medical, [...] Depression Rheumatoid aortitis Coronary artery disease involving umatilla tribe coronary artery of umatilla tribe heart without angina pectoris Mason's palsy Malignant [...] tablet via G-tube nightly. 90 tablet 3 certolizumab pegol (CIMZIA) 200 mg/mL KIT Inject 400 mg under the skin Every 28 days. Cholecalciferol (VITAMIN D-3) 2000 units CAPS Take 1 capsule via G-tube Daily. 30 each 0 citalopram (CELEXA) 20 mg tablet Take 1 tablet via G-tube Daily. 30 tablet 0 clopidogrel (PLAVIX) 75 mg tablet Take 1 tablet via G-tube Daily. 90 tablet 1 Cyanocobalamin (VITAMIN B-12) 5000 MCG TBDP Take 5,000 mcg via G-tube Daily. 30 tablet 0 ferrous sulfate (IRON) 325 (65 Fe) MG TABS Take 1 tablet by mouth Daily. ferrous sulfate 325 mg tablet Take 1 tablet via G-tube Daily. 30 tablet 0 folic acid 1 mg tablet Take 1 tablet via G-tube [...] Review of Systems Constitutional: Positive for malaise/fatigue. HENT: Positive for hearing loss. Respiratory: Negative for shortness of breath. Cardiovascular: Positive for orthopnea. Negative for chest pain, palpitations, claudication and leg swelling. Musculoskeletal: Positive for Leg cramping at night Neurological: Positive for dizziness and weakness. OBJECTIVE: PHYSICAL EXAM BP (!) 82/50 | Pulse 76 Comment: regular | Resp 12 | Ht 1.702 m (5' 7") | Wt 73.8 kg (16 2 lb 11.2 oz) | BMI 25.48 kg/m Physical Exam Constitutional: He is oriented [...] gallop and no friction rub. Murmur heard. Pulses: Carotid pulses are 2+ on the [...] needs review Confirmed by GONZALO JAVIER MD ([id number]) on 07/25/2017 6:45:53 AM LAB RESULTS reviewed during visit today primarily from [facility]: LIPID Lab Results Component Value Date TRIG 61 10/05/2012 HDL 37.5 10/05/2012 LDL 77 10/05/2012 CHOLHDL 3.0 02/13/2016 LDLEX 66 02/12/2016 HDLEX 38.2 (A) 02/12/2016 TRIGEX 48 02/12/2016 CHOLEX 114 02/12/2016 CHEMISTRY Lab Results Component Value Date GLU [...] 296 (H) 07/01/2017 I reviewed records from [facility] for hospitalization,includin g H&P, Discharge Summary and lab reports on 07/24/17-08/01/17 which is summarized in the HPI. DEVICE INTERROGATION Device interrogation is ordered and performed during this visit. Refer to scanned Paceart documentation and device PDF in [employer] for interrogation (with programming changes) performed during visit today. Events:1 high ventricular rates 06/25/17 lasting 18 seconds EGM shows atrial tachycardia wit h rate 192 beats per minute. Single PVCs 95,646. PVC runs 83. Heart rate histogram shows excellent distribution. Atrial pacing 93.8%, Ventricular pacing 1.6%. There is a normal and stable device function. Estimated remaining battery longevity is 4.5 years. Current underlying rhythm: sinus bradycardia with rate 53 beats per minute. IMAGING- I reviewed reports from [facility]: Echocardiogram limited 07/25/17 Normally functioning 27 bioprosthetic aortic valve. No evid ence of mass or vegetation noted. No obvious vegetations on umatilla tribe valves. Echocardiogram 07/24/17 shows normal left ventricular cavity size. There is septal dyskinesi s with otherwise normal regional wall motion and mild concentric LVH. Ejection fraction is v isually estimated at 55-60%. Aortic valve is echodense suggestive of prior replacement with borderline to mild functional stenosis without insufficiency. Peak velocity is measured at 2 m/s. Left atrium is mildly enlarged. Above data and testing is reviewed this visit; testing below is historical data unless othe rwise specified. ASSESSMENT: 1. Aortic valve stenosis, status post TAVR 07/02/17: A. First noted to be mild to moderate on echocardiogram 01/2014. M oderate on echocardiogram 01/2015 and again 04/17/17. Associated with decreased ejection frac tion and hypotension. B. Status post TAVR with Otoole valve on 07/02/[address] Lerma at [facility]. C. Limited echocardiogram 07/03/17 at [facility] show s left ventricle is normal in [...] normal left ventricular cavity size. There is septal dyski nesis with otherwise normal regional wall motion and mild concentric LVH. Ejection fraction is visually estimated at 55-60%. Aortic valve is echodense suggestive of prior replacement w ith borderline to mild functional stenosis without insufficiency. Peak velocity is measured at 2 m/s. Left atrium is mildly enlarged. E. Echocardiogram limited 07/25/17 Normally functioning 27 bioprosthetic aortic valve. No evidence of mass or vegetation noted. No obvious vegetations on umatilla tribe valves. E. Today, 10/17/2017, he continues to do well in this regard. There are no signs or symptoms of overt congestive heart failure, and his physical exam shows no significant f luid retention. He is in class II of the [place] [employer] functional class. Discussed with him that he can stop the clopidogrel after 12/30/17. He is having problems w ith his thin skin and skin tears and bleeding with this. His skin tears today are wrapped wi th gauze and coban and he and his are advised to try using this method in the future to avoid worsening skin tears from the adhesive from Band-Aid he had been using. 2. Coronary artery disease, cardiomyopathy with mid-range ejection fraction: A. Status post abnormal treadmill stress test 02/01/[address] depression in V3 and V4 associated with chest pain. B. Status post left heart catheterization by Dr. Garcia at [facility] on 02/01/10 showing 90% stenosis of the proximal RCA with luminal irre gularities mid and proximal LAD and circumflex. C. Status post successful percutaneous intervention with stenti ng of the ostium of the RCA with Promus 4 X 15 mm stent. Recommended to be on Plavix for one year, on 02/02/10, by Dr. Obrien, at [facility]. D. Echocardiogram 01/24/14 shows LVEF is 55-60%. Mild to moderate aortic stenosis. When compared to echo cardiology on 08/12/11, aortic valve stenosis is a new finding. E. Coronary artery bypass grafting x 2: Left internal mammary to left anterior descending, saphenous vein graft to right posterior descending artery with end oscopic vein harvest from [facility] on 01/26/2014. F. Nuclear Stress Test 01/12/15 The Lexiscan EKG is non diagnosti c due to underlying DDD paced rhythm. Normal Lexiscan Tetrofosmin myocardial perfusion imagi ng study. Normal left ventricular size, wall thickness and motion. Left ventricular systolic function is preserved. Left ventricular ejection fraction is 60%. G. Echocardiogram 01/10/15 Normal left ventricular size, wall thi ckness and motion. Preserved left ventricular systolic function. LVEF is 55-60%. Grade 1 lef t ventricular diastolic dysfunction. Mildly thickened and calcified trileaflet aortic valv e with a moderate calcific aortic valve stenosis. There is a mild aortic valve insufficiency . Mild mitral valve regurgitation, mild tricuspid valve regurgitation. Normal right-sided pressure. Not well-visualized IVC. H. Echocardiogram 04/17/17 Normal left ventricular size and wall th ickness. There is a moderate global hypokinesis of the left ventricle. Overall, left ventric ular systolic function is moderately decreased. LVEF is 40-45%. Evidence of a sigmoid septum . Bouncing septum. Mildly thickened and calcified trileaflet aortic valve with moderate calc ific aortic valve stenosis. There is a mild aortic valve insufficiency. Normal right-sided p ressure. Not well-visualized IVC. When compared to echocardiography on 01/10/15, left ventricu lar dysfunction is significantly reduced. I. Left heart catheterization05/07/17 shows high grade 80-85% steno sis at the proximal portion of the LAD, occluded ostial stent of the dominant RCA. By-pass a ngiography: GARCIA to LAD is Opened, SVG to PDA is opened. He was recommended risk factor leo fication and medical management. J. Today, 10/17/2017, he denies chest pain. 3. Hypotension: A. Today, 10/17/2017, his blood pressure is low again. In the past this has been primarily related to his hydration status and difficulty taking in fluids wit h swallowing problems. Discussed with him that he should increase the volume of water he pro ubaldo in his G-tube, which is currently 120 mL three times daily, and even going to 180 mL t hree times daily would be an improvement. He is advised to try this and if his blood pressur e is not normalized, that he could then try 240 mL three times daily. He is not taking any m edication that would lower his blood pressure. 4.Sinoatrial node dysfunction with Symptomatic bradycardia. A. Patient presented 03/05/11 with increasing dizziness and ligh theadedness with fatigue. It was noted that his heart rate has been running slow at 50 tobias ts per minute. Of note, the patient was on no AV-blocking agent. B. Status post Medtronic dual-chamber permanent pacemaker impla ntation 03/11/[address] Garcia at [facility]. C. Today, 10/17/2017, his device interrogation shows normal and stab le device function. 5.Hyperlipidemia, mixed. A. Today, 10/17/2017, he remains on atorvastatin 40 mg. 6.Diabetes. Not otherwise addressed today 10/17/2017. 7.Hypothyroidism. Not otherwise addressed today 10/17/2017. 8.Obstructive sleep apnea: Not otherwise addressed today 10/17/2017. A . He uses a CPAP machine nightly. 9. Depression. Not otherwise addressed today 10/17/2017. 10. Food aspiration. Not otherwise addressed today 10/17/2017. A. 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 He has had ongoing dysphasia and dysphagia. B. He has G-tube placed 07/2017. PLAN: 1. He is advised to add more fluid via his G-tube to help support his blood pressure. 2. He can stop the clopidogrel after 12/30/17. 3. Until then, he is advised to dress his skin tears and treat bleeding related to these wi th gauze and coban to minimize worsening skin tears from adhesive based bandages. 4. He will follow up in 6 months for office visit and device interrogation, or sooner with concerns. Electronically signed by: NEGRITA Ruiz I, VITO Gtz, am acting as a scribe on behalf of, and in the presence of NEGRITA Ruiz. - VITO Gtz 10/17/2017 9:41 I, NEGRITA Ruiz, personally performed the services described in this documentation, as scribed in my presence and it is both accurate and complete. NEGRITA Blackman 2017 9:50 Portions of this chart may have been created with [facility] voice recognition software. Occasi onal wrong-word or sound-alike substitutions may have occurred due to the inherent sanchez itations of voice recognition software. Please read the chart carefully and recognize, using context, where these substitutions have occurred. in this encounter Plan of Treatment +--------+---------+ + + + | Date | Type | Specialty | Care Team | Description | +--------+---------+ + + + | 04/16/ | Office | Cardiology | Taylor Heard, | | | 2017 | Visit | | NEGRITA Payne | | | | | | [place] | | | | | | [address] | | | | | | | | +--------+---------+ + + + | 09/01/ | Office | Sleep Medicine | Moris Hassan | | | 2018 | Visit | | MD Jaison Pascual [place] | | | | | | [address] | | | | | | [place] [address] | | | | | | [phone] | | | | | | | | +--------+---------+ + + + as of this encounter Procedures + +--------+ [...] | | + +--------+ + + + in this encounter Results Device Interrogation (10/17/2017) + + + | Narrative | Performed At | + + + | Taylor Heard, | [facility] | | FOREIGN STUDENT ADVISER TEACHER 10/17/2017 14:22 PATIENT NAME: Fabricio Omalley | | | [...] | | | Coronary artery disease involving umatilla tribe coronary artery of umatilla tribe | | | heart without angina pectoris I25.10 414.01 4. Hyperlipidemia, | | | mixed E78.2 272.2 5. PACEMAKER, PERMANENT, 03/11/11, [employer] - | | | SUW Z95.0 V45.01 Device Interrogation 6. Pacemaker reprogramming/check | | | DO NOT DELETE Z45.018 V53.31 Device Interrogation 7. Cardiomyopathy, | | | unspecified type ([facility]) I42.9 425.4 8. Chronic combined systolic and | | | diastolic CHF (congestive heart failure) ([facility]) I50.42 | | | 428.42 428.0 9. [...] Procedure Note | + + | Taylor HeardNEGRITA - 10/17/2017 0900 PDT Formatting of this note may be different | | from the original.PATIENT NAME: Fabricio Ghotra : 1940: AGE: | | 76 y.o.Device In-office Evaluation Report10/17/2017 Reason for evaluation: | | routineIndication for device: ICD-10-CM ICD-9-CM 1. Sinoatrial node dysfunction (HCC) | | with BRADYCARDIA I49.5 427.81 Device Interrogation 2. Nonrheumatic aortic valve | | stenosis I35.0 424.1 3. Coronary artery disease involving umatilla tribe coronary artery of | | umatilla tribe heart without angina pectoris I25.10 414.01 [...] | | | + +---------+ + + in this encounter Visit Diagnoses + + | Diagnosis | + + | Sinoatrial node dysfunction (HCC) with BRADYCARDIA - Primary | + + | Sinoatrial node dysfunction | + + | Nonrheumatic aortic valve stenosis | + + | Aortic valve disorders | + + | Coronary artery disease involving umatilla tribe coronary artery of umatilla tribe heart without angina | | pectoris | + + | Hyperlipidemia, mixed | + + | Mixed hyperlipidemia | + + | PACEMAKER, PERMANENT, 03/11/11, [employer] - SUW | + + | Cardiac pacemaker in situ | + + | Pacemaker reprogramming/check DO NOT DELETE | + + | Fitting and adjustment of cardiac pacemaker | + + | Cardiomyopathy, unspecified type (HCC) | + + | 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 failure) (HCC) | + + | Idiopathic hypotension | + + | Hypotension, unspecified | + +
--- OUTSIDE RECORDS SUMMARY | ~2017-12-24 | XMS | Encounter Summary ---
Demographics + + + | Address | [address] | | | [place] [address] | + + + | Home Phone | | + + + | Preferred Language | Unknown | + + + | Marital Status | | + + + | Bahai Affiliation | 1013 | + + + | Race | Unknown | + + + | Ethnic Group | Unknown | + + + Author + + + | Author | [facility] | + + + | Organization | [facility] | + + + | Address | Unknown | + + + | Phone | Unavailable | + + + Support + + + + + | Name | Relationship | Address | Phone | + + + + + | Yuri Ghotra Ann | ECON | [address] | | | | | [place] | | | | | [address] | | + + + + + | Fabricio Ghotra | ECON | Unknown | | + + + + + | Melany Ghotra | ECON | Unknown | | + + + + + Care Team Providers + +------+ + | Care Lathing Supervisor Name | Role | Phone | + +------+ + | Mehrdad Menon MD | PCP | | + +------+ + Reason for Visit +--------+ + | Reason | Comments | +--------+ + | Other | Prior Auth Methotrexate Approved | +--------+ + Encounter Details +--------+ + + + + | Date | Type | Department | Care Team | Description | +--------+ + + + + | 10/15/ | Telephone | [facility] | Karrie Colunga, | Other (Prior Auth | | 2018 | | Rheumatology [address] | [place] | Methotrexate | | | | [address] | | Approved) | | | | [place] [address] | | | | | | [phone] | | | +--------+ + + + + Social [...] + + +---------+ + | No | | | | + + +---------+ + + + + | Sex Assigned at | Date Recorded | | | | + + + | Not on file | | + + + as of this encounter Plan of Treatment +--------+---------+ + + + | Date | Type | Specialty | Care Team | Description | +--------+---------+ + + + | 02/18/ | Office | Rheumatology | Izabela, | | | 2017 | Visit | | NEGRITA Gill [address] | | | | | | [facility] | | | | | | [place] [address] | | | | | | [phone] | | | | | | | | +--------+---------+ + + + as of this encounter Visit Diagnoses Not on filein this encounter"
--- OUTSIDE RECORDS SUMMARY | ~2017-12-24 | XMS | Clinical Summary ---
Demographics + + + | Address | [address] | | | [place] [address] | + + + | Home Phone | | + + + | Preferred Language | Unknown | + + + | Marital Status | | + + + | Catholic Affiliation | 1013 | + + + | Race | Unknown | + + + | Ethnic Group | Unknown | + + + Author + + + | Author | [facility] | + + + | Organization | [facility] | + + + | Address | Unknown | + + + | Phone | Unavailable | + + + Support + + + + + | Name | Relationship | Address | Phone | + + + + + | Yuri Ghotra Ann | ECON | [address] | | | | | [place] | | | | | [address] | | + + + + + | Najma Ghotra | ECON | Unknown | | + + + + + | Melany Ghotra | ECON | Unknown | | + + + + + Care Team Providers + +------+ + | Care Bank Messenger Name | Role | Phone | + +------+ + | Mehrdad Menon MD | PP | | + +------+ + Allergies + + + + + + | Active Allergy | Reactions | Severity | Noted | Comments | | | | | Date | | + + + + + + | Hydrochlorothiazide | Other (See Comments) | Medium | | | + + + + + + | Lisinopril | Vertigo | Low | 01/26/20 | | | | | | 14 | | + + + + + + | Oxycodone | Other (See Comments) | Medium | 01/26/20 | aggression | | | | | 14 | | + + + + + + Current Medications + + + +---------+------+------+-------+ | Prescription | Sig. | Disp. | Refills | Star | End | Statu | | | | | | t | Date | s | | | | | | Date | | | + + + +---------+------+------+-------+ | Cholecalciferol | Take 2,000 Units by | | | | | Activ | | 1000 UNITS capsule | mouth daily. | | | | | e | + + + +---------+------+------+-------+ | citalopram | Take 10 mg by mouth | | | | | Activ | | (CELEXA) 10 MG | every morning. | | | | | e | | tablet | | | | | | | + + + +---------+------+------+-------+ | cyanocobalamin | Take 1,000 mcg by | | | | | Activ | | (VITAMIN B-12) 1000 | mouth daily. | | | | | e | | MCG tablet | | | | | | | + + + +---------+------+------+-------+ | levothyroxine | Take 50 mcg by mouth | | | | | Activ | | (SYNTHROID) 25 MCG | every morning | | | | | e | | tablet | before breakfast. | | | | | | + + + +---------+------+------+-------+ | | Take 1 tablet by | | | | | Activ | | utptmnwxxsbc-bcso-ls | mouth daily. | | | | | e | | nerals-folic acid | | | | | | | | (THERAPEUTIC-M) TABS | | | | | | | | tablet | | | | | | | + + + +---------+------+------+-------+ | OnabotulinumtoxinA | Inject 2 Bottles as | | | | | Activ | | (BOTOX IJ) | directed every 3 | | | | | e | | | (three) months. | | | | | | | | Injected into scar | | | | | | | | tissue in neck | | | | | | + + + +---------+------+------+-------+ | simvastatin | Take 20 mg by mouth | | | | | Activ | | (ZOCOR) 20 MG tablet | nightly. | | | | | e | + + + +---------+------+------+-------+ | ferrous sulfate, | Take 65 mg of iron | | | | | Activ | | 65 FE, 324 (65 FE) | by mouth daily. | | | | | e | | MG EC tablet | | | | | | | + + + +---------+------+------+-------+ | Docusate Calcium | Take by mouth | | | | | Activ | | (STOOL SOFTENER PO) | daily. | | | | | e | + + + +---------+------+------+-------+ | metoprolol | Take 0.5 tablets by | 60 | 3 | 10/1 | | Activ | | (LOPRESSOR) 25 MG | mouth 2 (two) times | tablet | | 4/20 | | e | | tablet | daily. | | | 14 | | | + + + +---------+------+------+-------+ | folic acid | Take 1 tablet by | 90 | 0 | 03/05 | | Activ | | (FOLVITE) 1 MG | mouth daily. | tablet | | 09/21 | | e | | tabletIndications: | | | | 17 | | | | Rheumatoid arthritis | | | | | | | | involving both | | | | | | | | hands with negative | | | | | | | | rheumatoid factor | | | | | | | | ([facility]) | | | | | | | + + + +---------+------+------+-------+ | aspirin 81 MG | Take 81 mg by mouth | | | | | Activ | | tablet | daily. | | | | | e | + + + +---------+------+------+-------+ | atorvastatin | Take 40 mg by mouth | | | | | Activ | | (LIPITOR) 40 MG | nightly. | | | | | e | | tablet | | | | | | | + + + +---------+------+------+-------+ | clopidogrel | Take 75 mg by mouth | | | | | Activ | | (PLAVIX) 75 MG | daily. | | | | | e | | tablet | | | | | | | + + + +---------+------+------+-------+ | acetaminophen | 650 mg. | | | 03/3 | | Activ | | (TYLENOL) 325 MG | | | | 0/20 | | e | | tablet | | | | 18 | | | + + + +---------+------+------+-------+ | nitroGLYCERIN | Place 1 tablet under | | | 08/2 | | Activ | | (NITROSTAT) 0.4 MG | the tongue every 5 | | | 9/20 | | e | | SL tablet | minutes for up to 3 | | | 14 | | | | | doses as needed for | | | | | | | | chest pain call 911 | | | | | | | | if pain persists. | | | | | | + + + +---------+------+------+-------+ | thiamine (VITAMIN | 100 mg. | | | 03/3 | | Activ | | B-1) 100 MG tablet | | | | 0/20 | | e | | | | | | 18 | | | + + + +---------+------+------+-------+ | vitamin E 400 UNIT | 400 Units. | | | 03/3 | | Activ | | capsule | | | | 0/20 | | e | | | | | | 18 | | | + + + +---------+------+------+-------+ | diclofenac | Apply 2 g topically | 1 Tube | 1 | 06/1 | | Activ | | (VOLTAREN) 1 % | 4 (four) times | | | 2/20 | | e | | | daily. | | | 18 | | | + + + +---------+------+------+-------+ | methotrexate 2.5 | TAKE THREE TABLETS | 39 | 0 | 06/1 | | Activ | | MG | BY MOUTH ONCE A WEEK | tablet | | 2/20 | | e | | tabletIndications: | | | | 18 | | | | Rheumatoid Arthritis | | | | | | | + + + +---------+------+------+-------+ | hydroxychloroquine | Take 1 tablet by | 180 | 0 | 10/03 | | Activ | | (PLAQUENIL) 200 MG | mouth 2 (two) times | tablet | | /20 | | e | | tabletIndications: | daily. | | | 18 | | | | Rheumatoid arthritis | | | | | | | | of multiple sites | | | | | | | | with negative | | | | | | | | rheumatoid factor | | | | | | | | (HCC) | | | | | | | + + + +---------+------+------+-------+ Active Problems + + + | Problem | Noted Date | + + + | Coronary artery disease involving [place] coronary artery of | 10/13/2017 | | [place] heart without angina pectoris | | + + + + + | Overview: Overview: Echocardiogram 07/24/17 showed normal | | left ventricular cavity size. There is septal dyskinesis [...] left heart catheterization by Dr. Garcia at [facility] | [facility] on 02/01/10 showing 90% stenosis of the proximal RCA with | | luminal irregularities mid and proximal LAD and circumflex. | | Status post successful percutaneous intervention with stenting of | | the ostium of the RCA with Promus 4 X 15 mm stent. Recommended | | to be on Plavix for one year, on 02/02/10, by Dr. Obrien, at | | [facility].Last Assessment & Plan: | + + + + + | Diabetes mellitus, type II ([facility]) | 10/13/2017 | + + + | Acute bacterial endocarditis | 08/01/2017 | + + + | C. difficile colitis | 08/01/2017 | + + + | Severe protein-calorie malnutrition (HCC) | 07/28/2017 | + + + | Gram-positive cocci bacteremia | 07/25/2017 | + + + + + | Overview: Last Assessment & Plan: Given recent TAVR, | | certainly concerned about possible endocarditis although echo | | without evidence of vegetation notedTransesophageal | | echocardiogram contraindicated by previous neck dissection and | | radiation therapy with poor ability to swallow.Continue IV | | antibiotics per primary team, awaiting home infusion plan | + + + + + | Abnormal breath sounds | 07/23/2017 | + + + + + | Last Assessment & Plan: LLL with rhonchi and febrile today | | Recommend f/u with PCP or ER today for further evaluation | + + + + + | 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 | 07/03/2017 | | failure) (HCC) | | + + + + + | Overview: Last Assessment & Plan: | | No evidence of volume overload on exam | | I&O with unmeasured urine | | Lungs clear and no edema noted | | 55-60% per transthoracic echo 07/24/17 | + + + + + | Chronic pulmonary aspiration | 07/03/2017 | + + + + + | Overview: Last Assessment & Plan: Known previous aspiration; | | as noted earlier, possible cause of positive blood cultures | + + + + + | History of SBE (subacute bacterial endocarditis) | 07/03/2017 | + + + | Cardiomyopathy (HCC) | 05/16/2017 | + + + + + | Overview: Last Assessment & Plan: | + + + + + | Abnormal laboratory test result | 03/19/2017 | + + + | High risk medication use | 03/14/2017 | + + + + + | Last Assessment & Plan: Labs current from from October 03 | | 2018-[facility] labs. continue to monitor closely while on DMARD | | and/or biologic medication. Counseled regarding medication | | compliance as well as potential toxicities with medications such | | as cytopenias, liver abnormalities and risks for infection, and | | the need for routine blood work monitoring. | + + + + + | Nonrheumatic aortic valve stenosis | 10/25/2015 | + + + + + | Overview: Overview: | | 07/02/17: Status post transfemoral TAVR with 29 mm Edward S 3 | | | | Last Assessment & Plan: | | Status post TAVR 07/02/17 | | Transthoracic Echo 07/24/17 | | Will need follow up scheduled after DC. | + + + + + | Carcinoma of base of tongue (HCC) | 08/08/2015 | + + + | Primary osteoarthritis of both hands | 05/16/2015 | + + + + + | Last Assessment & Plan: Trial Voltaren gel prn | + + + + + | Rheumatoid arthritis of multiple sites with negative rheumatoid | 03/07/2015 | | factor (HCC) | | + + + + + | Last Assessment & Plan: Initially diagnosed with RA in 2002. | | Presenting symptoms for joint pain swelling and stiffness | | affecting him shoulders and feet. Raised acute inflammatory | | markers negative VAMSHI negative rheumatoid factor negative CCP | | antibodyNo clinical evidence of active disease on today's | | examSuspect that hand stiffness is most likely due to | | degenerative changes not inflammatory.Recommend:1. Due to recent | | bacteremia, dysphagia and risk of aspiration pneumonia, recommend | | that he not begin biologic medication at this time. 2. | | Bacteremia and C. difficile have resolved- continue methotrexate | | 7.5 mg once per week and Plaquenil 400 mg qd3. Trial Voltaren gel | | prn hand pain/stiffness 4. Reminded patient that if | | infection/illness reoccur to discontinue methotrexate. If there | | are further questions regarding this please contact our office or | | his PCP5. Labs are current from September. 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 MODEL NAME MODEL# SERIAL# DATE IMPLANTED | | GENERATOR Medtronic Adapta [id number] [id number] 03/11/2011 RV LEAD | | Medtronic Active bipolar Capsurefix 4076/52 cm [id number] | | 03/11/2011 A LEAD Medtronic Active bipolar Capsurefix 4076/45 cm | | [id number] 03/11/2011 | + + Resolved Problems + + + + | Problem | Noted | Resolved | | | Date | Date | + + + + | Rheumatoid arthritis (HCC) | 08/28/19 | | | | 16 | 7 | + + + + | Encounter for long-term (current) use of other high-risk | 03/07/20 | | | medications | 15 | 6 | + + + + | Rheumatoid arthritis involving both hands with negative | 02/01/20 | | | rheumatoid factor (HCC) | 15 | 6 | + + + + Encounters +--------+ + + + + | Date | Type | Specialty | Care Team | Description | +--------+ + + + + | 10/15/ | Documentati | | Karrie Colunga, | Other (Approval | | 2017 | on Only | | [place] | letter for | | | | | | Methotrexate) | +--------+ + + + + | 10/15/ | Telephone | | Karrie Colunga, | Other (Prior Auth | | 2017 | | | [place] | Methotrexate | | | | | | Approved) | +--------+ + + + + | 10/14/ Office | | [place], | Rheumatoid arthritis | | 2017 | Visit | | NEGRITA Gill | of multiple sites | | | | | | with negative | | | | | | rheumatoid factor | | | | | | ([facility]) (Primary Dx); | | | | | | High risk medication | | | | | | use; Rheumatoid | | | | | | arthritis involving | | | | | | both hands with | | | | | | negative rheumatoid | | | | | | factor (HCC); | | | | | | Primary | | | | | | osteoarthritis of | | | | | | both hands | +--------+ + + + + from Last 3 Months Immunizations + + + + | Name | Dates Previously Given | Next Due | + + + + | INFLUENZA, PF | 02/16/2017 | | | TRIVALENT HIGH DOSE | | | | 63 YRS OR > | | | + + + + Family History + + +------+ + | Medical History | Relation | Name | Comments | + + +------+ + | Cancer | Father | | postate | + + +------+ + | Cancer | Mother | | pancreas | + + +------+ + + +------+--------+ + | Relation | Name | Status | Comments | + +------+--------+ + | Father | | | | + +------+--------+ + | Mother | | | | + +------+--------+ + Social History + +-------+ +--------+------+ | [...] + + + | Blood Pressure | 150/79 | 10/14/2017 8:21 AM PDT | + + + + | Pulse | 70 | 10/14/2017 8:21 AM PDT | + + + + | Temperature | 36.8 C (98.2 F) | 10/14/2017 8:21 AM PDT | + + + + | Respiratory Rate | 16 | 06/05/2017 11:00 AM PST | + + + + | Oxygen Saturation | 97% | 07/23/2017 3:00 PM PDT | + + + + | Inhaled Oxygen | - | - | | Concentration | | | + + + + | Weight | 73 kg (161 lb) | 10/14/2017 8:21 AM PDT | + + + + | Height | 167.6 cm (5' 6") | 10/14/2017 8:21 AM PDT | + + + + | Body Mass Index | 25.99 | 10/14/2017 8:21 AM PDT | + + + + Plan of Treatment +--------+---------+ + + + | Date | Type | Specialty | Care Team | Description | +--------+---------+ + + + | 02/18/ | Office | | [place], | | | 2018 | Visit | | NEGRITA Gill [address] | | | | | | [facility] | | | | | | [place] [address] | | | | | | [phone] | | | | | | | | +--------+---------+ + + + + + + + + | Health Maintenance | Due Date | Last Done | Comments | + + + + + | Diabetic Eye Exam | | | | | | 9 | | | + + + + + | Diabetic Foot Exam | | | | | | 9 | | | + + + + + | Microalbumin | | | | | Screening | 9 | | | + + [...] | + + + + + | Hemoglobin A1c | | 01/27/2014 | | | | 4 | | | + + + + + | Vaccine: Influenza | | 02/16/2017 | | | (#1) | 8 | | | + + + + + Implants + +------+-------+ +--------+--------+--------+ | Implanted | Type | Area | Manufacture | Device | Expira | Model | | | | | r | | tion | / | | | | | | Identi | Date | Serial | | | | | | fier | | / Lot | + +------+-------+ +--------+--------+--------+ | Pacing Wire Dual | | N/A: | [employer] | | 08/02/ | 030-00 | | 030-005 - | | Heart | | | 2019 | 5 / | | [id number]: Qty: 1 on | | | | | | /164 | | 01/26/2014 by Mekhi Vasquez, | | | | | | | | MD | | | | | | | + +------+-------+ +--------+--------+--------+ Results Not on filefrom Last 3 Months Insurance + +--------+ +------+-------+ + | Payer | Benefi | Subscriber | Type | Phone | Address | | | t Plan | ID | | | | | | / | | | | | | | Group | | | | | + +--------+ +------+-------+ + | MEDICARE | MEDICA | [id number] | | | [address] | | | RE | | | | [place] [address] | | | IP-OP | | | | | + +--------+ +------+-------+ + | [employer]AN | ODS | [id number] | | | | | | HEALTH | | | | | | | PLAN | | | | | + +--------+ +------+-------+ + + +--------+ +--------+ + + | Guarantor Name | Accoun | Relation to | Date | Phone | Billing Address | | | t Type | Patient | of | | | | | | | | | | + +--------+ +--------+ + + | NAJMA GHOTRA | Person | Self [birth year] Home: | [address] | | | al/Fam | | [phone] | [phone] [place] | | | [place] | | | [phone] | + +--------+ +--------+ + +
--- OUTSIDE RECORDS SUMMARY | ~2017-12-24 | XMS | Encounter Summary ---
Demographics + + + | Address | [address] | | | [place] [address] | + + + | Home Phone | | + + + | Preferred Language | Unknown | + + + | Marital Status | | + + + | Mu-Ism Affiliation | Unknown | + + + | Race | Unknown | + + + | Ethnic Group | Unknown | + + + Author + + + | Author | [facility] | | | and [place] | + + + | Organization | [facility] | | | and [place] | + + + | Address | Unknown | + + + | Phone | Unavailable | + + + Support + + + + + | Name | Relationship | Address | Phone | + + + + + | Yuri Ghotra | ECON | [address] | | | | | [place] | | | | | [address] | | + + + + + | Fabricio Ghotra | ECON | [address] | | | | | [place] | | | | | [address] | | + + + + + | Kenna Ghotra | ECON | Unknown | | + + + + + Care Team Providers + +------+ + | Care Distributed [employer] Consultant Name | Role | Phone | + +------+ + | Mehrdad Menon MD | PCP | | + +------+ + Reason for Visit + + + | Reason | Comments | + + + | Follow-up | throat and ear cleaning | + + + Evaluate & Treat (Routine) + +--------+ + + + + | Status | Reason | Specialty | Diagnoses / | Referred By | Referred To | | | | | Procedures | Contact | Contact | + +--------+ + + + + | Authorized | | Otolaryngolog | Diagnoses | Sinan, | Ronn Patrick | | | | y | Personal | Mehrdad Mueller MD [address] | | | | | history of | [place] | [address] | | | | | malignant | [address] | [address] | | | | | neoplasm of | [place], | | | | | unspecified | [place], [place] | [place] [address] | | | | | site of lip, | [address] | Phone: | | | | | oral | Phone: | [phone] | | | | | cavity, and | [phone] | Fax: | | | | | pharynx | Fax: | [phone] | | | | | | [phone] | | + +--------+ + + + + Encounter Details +--------+---------+ + + + | Date | Type | Department | Care Team | Description | +--------+---------+ + + + | 10/20/ | Office | [facility] | Ronn Patrick MD | Squamous cell | | 2018 | Visit | OTOLARYNGOLOGY [address] | [address] [place] | carcinoma in situ | | | | [address] | [address] [place], | (SCCIS) of lateral | | | | [place], [place] | [place] [address] | portion of tongue | | | | [address] | [phone] | (Primary Dx); | | | | [phone] | | Impacted kahlil of | | | | | | both ears | +--------+---------+ + + + Social History [...] + + + | Blood Pressure | - | - | + + + + | Pulse | 73 | 10/20/2017 0909 PDT | + + + + | [...] | Body Mass Index | 25.37 | 10/20/2017 0909 PDT | + + + + in this encounter Progress Notes Ronn Patrick MD - 10/20/2017 0900 PDTPatient has a history of squamous cell carcinoma of the base of his tongue and had extensive surgery along with radiation 14 years ago. He come s in for follow-up evaluation and also to have his ears cleaned. A [place] graft was place d on the right facial area to bring his lip up into position and he's had much less problems with food extruding from his mouth well eating. He's not having any other changes are new complaints. Examination: Patient is an alert 76-year-old male accompanied by his . Skin of the fac e nose and ears all appears to be smooth and healthy. Ear canals a lot of wax down the drum area on both sides. He does use Q-tips. Nasal passages no obstruction no mass or lesion n oted. Parotid and submandibular glands were smooth. The right side of the nose is sprayed well with some David-Synephrine and topical Xylocaine. In the oral cavity no mass or lesions are noted he has limited movement of his temporomandibular joint bilaterally. No mass seen in the posterior pharyngeal wall or the oropharyngeal area. Neck has had the radical neck d issections and no evidence of any mass is noted to be present. He has limited movement of h is next because of the tightness after the surgery and radiation. Special procedure: The fiberoptic scope was placed through the right nasal passage without difficulty and no mass or lesions were noted in this passage or in the nasopharyngeal area. Rosenmuller's fosses are open and clear and the eustachian tubes appear normal. Posterolat eral pharyngeal gil were smooth. The base the tongue vallecula and epiglottis no mass or lesion or thrush are noted. He does have some saliva that sits in the vallecula area. His vocal cords are smooth and have limited motion. No mass seen in the piriform sinus area and a no redness over the arytenoids. Patient was taken to the microscope room and with the us e of a wax curet suctioned and a right angle hook an alligator forceps the wax was able to r emove from his ears any get hear much better immediately. Impression: #1 squamous cell carcinoma the base of the tongue that appears to be stable. # 2 cerumen will impaction bilaterally. 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
--- OUTSIDE RECORDS SUMMARY | ~2017-12-24 | XMS | Encounter Summary ---
Demographics + + + | Address | [address] | | | [place] [address] | + + + | Home Phone | | + + + | Preferred Language | Unknown | + + + | Marital Status | | + + + | Caodaism Affiliation | Unknown | + + + | Race | Unknown | + + + | Ethnic Group | Unknown | + + + Author + + + | Author | [facility] | | | and [place] | + + + | Organization | [facility] | | | and [place] | + + + | Address | Unknown | + + + | Phone | Unavailable | + + + Support + + + + + | Name | Relationship | Address | Phone | + + + + + | Yuri Ghotra | ECON | [address] | | | | | [place] | | | | | [address] | | + + + + + | Fabricio Ghotra | ECON | [address] | | | | | [place] | | | | | [address] | | + + + + + | Kenna Ghotra | ECON | Unknown | | + + + + + Care Team Providers + +------+ + | Care Levee Superintendent Name | Role | Phone | + [...] + + | 10/17/ | Office | [facility] [place] | Taylor Heard, | Sinoatrial node | | 2017 | Visit | CARDIOLOGY [address] | ADMINISTRATIVE PROFESSIONAL [address] | dysfunction (HCC) | | | | [place], | [place], [place] | with BRADYCARDIA | | | | [place] [address] | [address] | (Primary Dx); | | | | [phone] | | Nonrheumatic aortic | | | | | | valve stenosis; | | | | | | Coronary artery | | | | | | disease involving | | | | | | [place] coronary | | | | | | artery of [place] | | | | | | heart [...] was r eferred to cardiac rehab at [facility] Since that time, he was admitted to [facility] 07/24/17 for bacteremia and G-tube was placed, [...] Depression 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 DEVICE INTERROGATION Device interrogation is ordered and performed during this visit. Refer to scanned Paceart documentation and device PDF in [place] for interrogation (with programming changes) performed during [...] per minute. IMAGING- I reviewed reports from [facility]: Echocardiogram limited 07/25/17 Normally functioning 27 bioprosthetic aortic valve. No evid ence of mass or vegetation noted. No obvious vegetations on [place] valves. Echocardiogram 07/24/17 shows normal left ventricular [...] valve on 07/02/[address] Lerma at [facility]. C. Limited echocardiogram 07/03/17 at [facility] show s left ventricle is normal in [...] or vegetation noted. No obvious vegetations on [place] valves. E. Today, 10/17/2017, he continues to do well in this regard. There are no signs or symptoms of overt congestive heart failure, and his physical exam shows no significant f luid retention. He is in class II of the [place] [employer] functional class. Discussed with him [...] left heart catheterization by Dr. Garcia at [facility] on 02/01/10 showing 90% stenosis of the proximal RCA with luminal irre gularities mid and proximal LAD and circumflex. C. Status post successful percutaneous intervention with stenti ng of the ostium of the RCA with Promus 4 X 15 mm stent. Recommended to be on Plavix for one year, on 02/02/10, by Dr. Obrien, at [facility]. D. Echocardiogram 01/24/14 shows LVEF is 55-60%. Mild to moderate aortic stenosis. When compared to echo cardiology on 08/12/11, aortic valve stenosis is a new finding. E. Coronary artery bypass grafting x 2: Left internal mammary to left anterior descending, saphenous vein graft to right posterior descending artery with end oscopic vein harvest from [facility] on 01/26/2014. F. Nuclear Stress [...] impla ntation 03/11/[address] [facility]. C. Today, 10/17/2017, his device interrogation shows [...] this chart may have been created with [employer] voice recognition software. Occasi onal wrong-word or [...] | Visit | | MD Jaison Pascual [place] | | | | | | [address] [address] | | | | | | [place] [address] | | | | | | [phone] | | | | | | | [...] | Taylor Heard, | PACEDEBORAH | | ADMINISTRATIVE PROFESSIONAL 10/17/2017 14:22 PATIENT NAME: Fabricio Omalley | [...] | | | Coronary artery disease involving [place] coronary artery of [place] | | | heart without angina pectoris [...] I35.0 424.1 3. Coronary artery disease involving [place] coronary artery of | | [place] heart without angina pectoris I25.10 414.01 4. [...] + + | Coronary artery disease involving [place] coronary artery of [place] heart without angina | | pectoris | [...]
--- OUTSIDE RECORDS SUMMARY | ~2017-12-24 | XMS | Encounter Summary ---
Demographics + + + | Address | [address] | | | [place] [address] | + + + | Home Phone | | + + + | Preferred Language | Unknown | + + + | Marital Status | | + + + | Buddhist Affiliation | Unknown | + + + | Race | Unknown | + + + | Ethnic Group | Unknown | + + + Author + + + | Author | [facility] | | | and [place] | + + + | Organization | [facility] | | | and [place] | + + + | Address | Unknown | + + + | Phone | Unavailable | + + + Support + + + + + | Name | Relationship | Address | Phone | + + + + + | Yuri Ghotra | ECON | [address] | | | | | [place] | | | | | [address] | | + + + + + | Fabricio Ghotra | ECON | [address] | | | | | [place] | | | | | [address] | | + + + + + | Kenna Ghotra | ECON | Unknown | | + + + + + Care Team Providers + +------+ + | Care Store Shopper Name | Role | Phone | + [...] + + | 10/17/ | Office | [facility] [place] | Taylor Heard, | Sinoatrial node | | 2017 | Visit | CARDIOLOGY [address] | 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 [address] [place] | dysfunction (HCC) | | | | [place], | [place], [place] | with BRADYCARDIA | | | | [place] [address] | [address] | (Primary Dx); | | | | [phone] | | Nonrheumatic aortic | | | | | | valve stenosis; | | | | | | Coronary artery | | | | | | disease involving | | | | | | [place] coronary | | | | | | artery of [place] | | | | | | heart [...] | | | | | | failure) ([facility]) | +--------+---------+ + + + Social History [...] was r eferred to cardiac rehab at [facility] Since that time, he was admitted to [facility] 07/24/17 for bacteremia and G-tube was [...] Depression Rheumatoid aortitis Coronary artery disease involving [place] coronary artery of [place] heart without angina pectoris Mason's palsy Malignant [...] needs review Confirmed by GONZALO JAVIER MD ([id number]) on 07/25/2017 6:45:53 AM LAB RESULTS reviewed during visit today primarily from [facility]: LIPID Lab Results Component Value Date [...] 296 (H) 07/01/2017 I reviewed records from [facility] for hospitalization,includin g H&P, Discharge Summary and lab reports on 07/24/17-08/01/17 which is summarized in the HPI. DEVICE INTERROGATION Device interrogation is ordered and performed during this visit. Refer to scanned Paceart documentation and device PDF in [employer] for interrogation (with programming changes) performed during [...] per minute. IMAGING- I reviewed reports from [facility]: Echocardiogram limited 07/25/17 Normally functioning 27 bioprosthetic aortic valve. No evid ence of mass or vegetation noted. No obvious vegetations on [place] valves. Echocardiogram 07/24/17 shows normal left ventricular [...] valve on 07/02/[address] Lerma at [facility]. C. Limited echocardiogram 07/03/17 at [facility] show s left ventricle is normal [...] or vegetation noted. No obvious vegetations on [place] valves. E. Today, 10/17/2017, he continues to do well in this regard. There are no signs or symptoms of overt congestive heart failure, and his physical exam shows no significant f luid retention. He is in class II of the [place] Heart Association functional class. Discussed with him [...] left heart catheterization by Dr. Garcia at [facility] on 02/01/10 showing 90% stenosis of the proximal RCA with luminal irre gularities mid and proximal LAD and circumflex. C. Status post successful percutaneous intervention with stenti ng of the ostium of the RCA with Promus 4 X 15 mm stent. Recommended to be on Plavix for one year, on 02/02/10, by Dr. Obrien, at [facility]. D. Echocardiogram 01/24/14 shows LVEF is 55-60%. Mild to moderate aortic stenosis. When compared to echo cardiology on 08/12/11, aortic valve stenosis is a new finding. E. Coronary artery bypass grafting x 2: Left internal mammary to left anterior descending, saphenous vein graft to right posterior descending artery with end oscopic vein harvest from [facility] on 01/26/2014. F. Nuclear Stress Test 01/12/15 [...] impla ntation 03/11/[address] Garcia at [facility]. C. Today, 10/17/2017, his device interrogation shows [...] this chart may have been created with [employer] voice recognition software. Occasi onal wrong-word or [...] | Visit | | MD Jaison Pascual [place] | | | | | | [address] | | | | | | [place] [address] | | | | | | [phone] | | | | | | | [...] | Taylor Heard, | PACEDEBORAH | | SHREDDER TENDER 10/17/2017 14:22 PATIENT NAME: Fabricio Omalley | [...] | | | Coronary artery disease involving [place] coronary artery of [place] | | | heart without angina pectoris I25.10 414.01 4. Hyperlipidemia, | | | mixed E78.2 272.2 5. PACEMAKER, PERMANENT, 03/11/11, [employer] - | | | SUW Z95.0 V45.01 Device Interrogation 6. Pacemaker reprogramming/check | | | DO NOT DELETE Z45.018 V53.31 Device Interrogation 7. Cardiomyopathy, | | | unspecified type ([facility]) I42.9 425.4 8. 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 [...] I35.0 424.1 3. Coronary artery disease involving [place] coronary artery of | | [place] heart without angina pectoris I25.10 414.01 4. [...] + + | Coronary artery disease involving [place] coronary artery of [place] heart without angina | | pectoris | [...]
--- OUTSIDE RECORDS SUMMARY | ~2017-12-24 | XMS | Encounter Summary ---
Demographics + + + | Address | [address] | | | [place] [address] | + + + | Home Phone | | + + + | Preferred Language | Unknown | + + + | Marital Status | | + + + | Jehovah'S Witness Affiliation | 1013 | + + + | Race | Unknown | + + + | Ethnic Group | Unknown | + + + Author + + + | Author | [facility] | + + + | Organization | [facility] | + + + | Address | Unknown | + + + | Phone | Unavailable | + + + Support + + + + + | Name | Relationship | Address | Phone | + + + + + | Yuri Ghotra Ann | ECON | [address] | | | | | [place] | | | | | [address] | | + + + + + | Fabricio Ghotra | ECON | Unknown | | + + + + + | Melany Ghotra | ECON | Unknown | | + + + + + Care Team Providers + +------+ + | Care Television Cameraman Name | Role | Phone | + +------+ + | Mehrdad Menon MD | PCP | | + +------+ + Reason for Visit +--------+ + | Reason | Comments | +--------+ + | Other | Approval letter for Methotrexate | +--------+ + Encounter Details +--------+ + + + + | Date | Type | Department | Care Team | Description | +--------+ + + + + | 10/15/ | Documentati | [facility] | Karrie Colunga, | Other (Approval | | 2018 | on Only | Rheumatology [address] | [place] | letter for | | | | [address] | | Methotrexate) | | | | [place] [address] | | | | | | [phone] | | | +--------+ + + + [...] + + + as of this encounter Progress Notes Karrie Colunga [place] - 10/15/2017 11:59 PM PDTINCOMING: Apporval letter for Methotrexate FROM: Leonor DOS: 10/15/17 REVIEWED BY: Karrie STATUS: Approved SENT TO SCANNING ON: 10/16/17in this encounter Plan of Treatment +--------+---------+ + + + | Date | Type | Specialty | Care Team | Description | +--------+---------+ + + + | 02/18/ | Office | Rheumatology | Izabela, | | | 2018 | Visit | | [address] | | | | | | [facility] | | | | | | [place] [address] | | | | | | [phone] | | | | | | | | +--------+---------+ + + + as of this encounter Visit Diagnoses Not on filein this encounter"
--- OUTSIDE RECORDS SUMMARY | ~2017-12-24 | XMS | Clinical Summary ---
Demographics + + + | Address | [address] | | | [place] [address] | + + + | Home Phone | | + + + | Preferred Language | Unknown | + + + | Marital Status | | + + + | Temple Affiliation | Unknown | + + + [...] Phone | + + +---------+ + | XEINA DORSEY | ECON | Unknown | | + + +---------+ + Care Team Providers + +------+ + | Care Buggyman Name | Role | Phone | + +------+ + PP | Unavailable | + +------+ + Source Comments JIGNESH is fully live on both [facility] and [facility] Allergies Not on File Current Medications [...]
--- OUTSIDE RECORDS SUMMARY | ~2017-12-24 | XMS | Encounter Summary ---
Demographics + + + | Address | [address] | | | [place] [address] | + + + | Home Phone | | + + + | Preferred Language | Unknown | + + + | Marital Status | | + + + | Anabaptist Affiliation | 1013 | + + + | Race | Unknown | + + + | Ethnic Group | Unknown | + + + Author + + + | Author | [facility] | + + + | Organization | [facility] | + + + | Address | Unknown | + + + | Phone | Unavailable | + + + Support + + + + + | Name | Relationship | Address | Phone | + + + + + | uYri Ghotra Ann | ECON | [address] | | | | | [place] | | | | | [address] | | + + + + + | Fabricio Ghotra | ECON | Unknown | | + + + + + | Melany Ghotra | ECON | Unknown | | + + + + + Care Team Providers + +------+ + | Care Data Entry Email Processor Name | Role | Phone | + [...] + + | 10/15/ | Documentati | [facility] | Karrie Clounga, | Other (Approval | | 2018 | on Only | Rheumatology [address] | [place] | letter for | | | | [address] | | Methotrexate) | | | | [place] [address] | | | | | | [phone] | | | +--------+ + + + [...] [address] | | | | | | [facility] | | | | | | [place] [address] | | | | | | [phone] | | | | | | | | +--------+---------+ + + + as of this encounter Visit Diagnoses Not on filein this encounter"
--- OUTSIDE RECORDS SUMMARY | ~2017-12-24 | XMS | Encounter Summary ---
Demographics + + + | Address | [address] | | | [place] [address] | + + + | Home Phone | | + + + | Preferred Language | Unknown | + + + | Marital Status | | + + + | Jewish Affiliation | 1013 | + + + | Race | Unknown | + + + | Ethnic Group | Unknown | + + + Author + + + | Author | [facility] | + + + | Organization | [facility] | + + + | Address | Unknown | + + + | Phone | Unavailable | + + + Support + + + + + | Name | Relationship | Address | Phone | + + + + + | Yuri Ghotra Ann | ECON | [address] | | | | | [place] | | | | | [address] | | + + + + + | Fabricio Ghotra | ECON | Unknown | | + + + + + | Melany Ghotra | ECON | Unknown | | + + + + + Care Team Providers + +------+ + | Care Button Tufter Name | Role | Phone | + +------+ + | Mehrdad Menon MD | PCP | | + +------+ + Reason for Visit + + + | Reason | Comments | + + + | Rheumatology visit | | + + + | Rheumatoid Arthritis | 3 month follow up | + + + Encounter Details +--------+---------+ + + + | Date | Type | Department | Care Team | Description | +--------+---------+ + + + | 10/14/ | Office | [facility] | Izabel[place], | Rheumatoid arthritis | | 2018 | Visit | Rheumatology [address] | [address] | of multiple sites | | | | [facility] | [facility] | with negative | | | | [place] [address] | [place] [address] | rheumatoid factor | | | | [phone] | [phone] | ([facility]) (Primary Dx); | | | | | | High risk medication | | | | | | use; Rheumatoid | | | | | | arthritis involving | | | | | | both hands with | | | | | | negative rheumatoid | | | | | | factor ([facility]); | | | | | | Primary | | | | | | osteoarthritis of | | | | | | both hands | +--------+---------+ + + + Social History [...] + + + | Respiratory Rate | - | - | + + + + | Oxygen [...] AM PDT | + + + + in this encounter Instructions Patient Instructions - Ann Carter MA - 10/14/2017 8:40 AM PDTWe hope that you brenner ve experienced exceptional care today and that you found our service to be courteous and hel pful. If you have any questions you can send us a message/request using [employer] or call our o ffice at [phone]. To reach Oneyda HERNÁNDEZ type extension [phone]. If you are unable to reach a nurse during clinic hours, please leave a detailed message. We check our messages often and return calls in a timely manner during clinic hours. Medication refills- please contact your pharmacy first Orders for labs or imaging: Please remember that Estrella will only call you if something i s of concern AND needs to be addressed, otherwise results will be discussed at your next of fice visit. You can also look at your results on Partneredt. If you are experiencing an emergency, please call 911 in this encounter Progress Notes Estrella Gurrola ARNP - 10/14/2017 8:40 AM PDTFormatting of this note may be differe nt from the original. Subjective: Patient ID: Fabricio Ghotra is a 76 y.o. male. Reason for visit: Rheumatoid Arthritis Here forFollow up Rheumatological History Initially diagnosed with RA by in 2002. Presenting symptoms were joint pain,swel ling and stiffness affecting hands, shoulders and feet. 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 As a result of this- has developed progressive sanchez itation of neck movement and dysphagia. Cardiac history-history of coronary artery disease post angioplasty and stent on the proxim al RCA in February 2010, status post CABG times 04 January 2014 cardiomyopathy with heart fa ilure in mid range ejection fraction hypertension hyperlipidemia symptomatic bradycardia sta tus post DDD permanent pacemaker on March 2011. July 02, 2017 TAVR with Otoole valve placed HPI Last visit: 07/23/17 Changes in overall health since last visit: ( see below) Main Concern:RA- reports increasing joint pain, swelling and stiffness primarily in the MCP joints of the hands. Reports that he has been off Plaquenil for 2-3 months due to recent ho spitalizations and infections. He was advised by providers to discontinue the Plaquenil duri ng his time of illness. He has continued to take the methotrexate. 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 Denies shortness of breath, chest pain and is afebr ile. He is taking oral solid paste -like foods. He does not take oral liquids or water due to ri sk of aspiration. Using PEG tube for nutrition, water and medications. Review of recent events since his last visit on July 23, 2017: 1. Was last seen in our office July 23, 2017 for possible Cimzia injection. He did not rec eive Cimzia at that visit due to abnormal breath sounds and was febrile 2. On July 23, 2017 followed up with [facility] in [facility] discharged the same day and was placed on Augmentin 3. On July 24 reported to [facility] in [facility] still not feeling well and positive blood cultures, 4 out of 4 vials positive for gram-positive co cci 4. On July 24 care was transferred to [place] for higher level of care secondary to bacter emia, abnormal chest x-ray, positive C. difficile and a concern for possible endocarditis gi thelma his recent TAVR in June 2017 5. July 30, 2017 PEG tube placed for nutrition and history of chronic aspiration 6. Discharge from [facility] on August 01, 2017 and was followed with home he alth Location: Hands Quality: stiff Severity: moderate Duration: 1-3 months Timing:intermittent Aggravated by:activity Relieved by:rest Current medications:Methotrexate 7.5 mg once per week, Folic Acid 1 mg QD, Plaquenil 400 mg QD Previous Medications tried/failed: lyophilized Cimzia-stopped due to risk of infection (pul monary infections due to dysphagia) The following portions of the patient's history were reviewed and updated as appropriate an d is available elsewhere in the record: allergies, current medications, past family history, past social history, past surgical history and problem list. Past Medical History Diagnosis Date Cervical spondylosis Colon polyp Coronary artery disease Depression Diabetes mellitus, type 2 (HCC) H/O difficult intubation Heart murmur Hyperlipidemia Hypertension Hypothyroidism Osteoarthritis Radiation esophagitis Rheumatoid arthritis(714.0) Sinoatrial node dysfunction (HCC) Sleep apnea, obstructive + cpap usage Spinal stenosis of lumbar region Squamous cell carcinoma throat, base of tongue Review of Systems Constitutional: Negative for fatigue and fever. HENT: Negative for mouth sores and sore throat. Eyes: Negative for pain and redness. Respiratory: Negative for cough and shortness of breath. Cardiovascular: Negative for chest pain. Gastrointestinal: Negative for abdominal pain and blood in stool. Genitourinary: Negative for dysuria and hematuria. Musculoskeletal: Positive for arthralgias. Negative for joint swelling. Skin: Negative for rash. Neurological: Negative for numbness and headaches. Psychiatric/Behavioral: The patient is not nervous/anxious. IEstrella, reviewed the above ROS. Objective: Physical Exam Constitutional: He is oriented to person, place, and time. He appears well-developed and we ll-nourished. HENT: Nose: Nose normal. Mouth/Throat: Mucous membranes are dry. Facial droop to the left. Has difficulty holding head in an upright position. Atrophy of the muscles on the side of the neck, R upper chest and into the axilla. Subjectively reports that he is unable to swallow thin liquids and occasionally the liquid goes up and out his nose Difficult to understand his speech Eyes: Pupils are equal, round, and reactive to light. Neck: No thyromegaly present. See HENT Cardiovascular: Normal rate and regular rhythm. Exam reveals no friction rub. No murmur heard. Pulmonary/Chest: Effort normal. No stridor. No respiratory distress. He has no wheezes. He has no rhonchi. He has no rales. No abnormal breath sounds auscultated Musculoskeletal: Musculoskeletal examination of the RIGHT and LEFT upper extremity, RIGHT and LEFT lower ext remity, spine, ribs ,pelvis ,head and neck was performed Musculoskeletal examination reveals no synovitis with no tenderness,soft tissue swelling or instability in all the joints . Musculoskeletal examination reveals degenerative changes in the hands Lymphadenopathy: He has no cervical adenopathy. Neurological: He is oriented to person, place, and time. No cranial nerve deficit. Coordina tion normal. Skin: Skin is warm and dry. No rash noted. No erythema. No pallor. Psychiatric: He has a normal mood and affect. [facility] AMB RHEUM JOINT EXAM: Tender Joints: 0 Swollen Joints: 0 Patient Assessment: 8 Provider Assessment: 3 CDAI: 11 Labs reviewed in [facility] October 03, 2017 (cbc cmp,crp-[facility]) CBC-hgb/hct-9.2, 28.1. CMP- satisfactory, CRP 2.8 (range 0-5)-satisfactory 03/21 T- spot TB neg. 2016 hep b/c neg. Reviewed chart notes, labs and imaging form other provider(s) since the last visit. Reviewed extensive notes from [facility] and cardiology Assessment and Plan: Visit Diagnoses and Associated Orders: Rheumatoid arthritis of multiple sites with negative rheumatoid factor (HCC) Initially diagnosed with RA in 2002. Presenting symptoms for joint pain swelling and stiffn ess affecting him shoulders and feet. Raised acute inflammatory markers negative VAMSHI negativ e rheumatoid factor negative CCP antibody No clinical evidence of active disease on today's exam Suspect that hand stiffness is most likely due to degenerative changes not inflammatory. Recommend: 1. Due to recent bacteremia, dysphagia and risk of aspiration pneumonia, recommend that he not begin biologic medication at this time. 2. Bacteremia and C. difficile have resolved- continue methotrexate 7.5 mg once per week an d Plaquenil 400 mg qd 3. Trial Voltaren gel prn hand pain/stiffness 4. Reminded patient that if infection/illness reoccur to discontinue methotrexate. If there are further questions regarding this please contact our office or his PCP 5. Labs are current from September. We'll update at next visit in 3-4 months High risk medication use Labs current from from October 03, 2017-[facility] labs. continue to monitor closely while on DM PAULA and/or biologic medication. Counseled regarding medication compliance as well as potent ial toxicities with medications such as cytopenias, liver abnormalities and risks for infect ion, and the need for routine blood work monitoring. Primary osteoarthritis of both hands Trial Voltaren gel prn Risks and benefits of a treatment plan were explained to patient. Patient will follow up with their primary care physician in regards to non-rheumatological symptoms listed under review of systems. Patient was advised to contact our office if there are any change in their symptoms. This document has been prepared with Udacity voice recognition system. The possibility of "s ound alike" manager commodities errors, and additions, or deletions may occur. If there is any que stion with respect to clarity of the message being conveyed, please contact me directly for clarification. Answers for HPI/ROS submitted by the patient on 10/14/2017 Joint problem FN subscore: : 3.33 Patient overall Assessment: 8 RAPID3 Score: : 11.33 in this encounter Plan of Treatment +--------+---------+ + + + | Date | Type | Specialty | Care Team | Description | +--------+---------+ + + + | 02/18/ | Office | Rheumatology | Izabela, | | | 2017 | Visit | | Estrella Desir [facility] [address] | | | | | | [facility] | | | | | | [place] [address] | | | | | | [phone] | | | | | | | | +--------+---------+ + + + as of this encounter Visit Diagnoses + + | Diagnosis | + + | Rheumatoid arthritis of multiple sites with negative rheumatoid factor (HCC) - Primary | + + | High risk medication use | + + | Encounter for long-term (current) use of other medications | + + | Rheumatoid arthritis involving both hands with negative rheumatoid factor (HCC) | + + | Primary osteoarthritis of both hands | + +
--- OUTSIDE RECORDS SUMMARY | ~2017-12-24 | XMS | Clinical Summary ---
Demographics + + + | Address | [address] | | | [place] [address] | + + + | Home Phone | | + + + | Preferred Language | Unknown | + + + | Marital Status | | + + + | Catholic Affiliation | Unknown | + + + | Race | Unknown | + + + | Ethnic Group | Unknown | + + + Author + + + | Author | [facility] | | | and [place] | + + + | Organization | [facility] | | | and [place] | + + + | Address | Unknown | + + + | Phone | Unavailable | + + + Support + + + + + | Name | Relationship | Address | Phone | + + + + + | Yuri Ghotra | ECON | [address] | | | | | [place] | | | | | [address] | | + + + + + | Najma Ghotra | ECON | [address] | | | | | [place] | | | | | [address] | | + + + + + | Kenna Ghotra | ECON | Unknown | | + + + + + Care Team Providers + +------+ + | Care Clipper Machine Operator Name | Role | Phone | [...] approachReferring Doctor: NEGRITA Ruiz TAVR | | Braille Translator: Dr. Lerma 05/29/17 Surgeon #1: Dr. Vasquez 06/03/17urgeon #2: Dr. Goldstein | | 07/01/17TS Risk Profile: 4.058% (Final) Incremental STS Risk Factors: (+3%) Frailty | | [place] Heart Failure Classification: III 5-meter walk test: 7.3 | | secHeight: 5'6" Weight: 73.9kg BMI: 26Echocardiogram: 05/29/17AVA: .75 Peak Velocity : | | Mean Gradient: 28 EF%: 40-45% Pulmonary Pressure: 32 AR: Mild MR: Trace TR: | | Trace CTA chest/abdomen/pelvis/gated chest: 05/29/17[facility] Measurements: Reid | | Measurements: ElectraThermtronic Measurements:Annulus Area: 653 Annulus Area: (see report) [...] Heredia with all appointment information: | | [phone] | |No significant stenosis | | | [...] |Contact ronald Heredia with all appointment information: [phone] | + + + + + | [...] | setting of bacteremia. Likely type 2 [place]. Prior cardiac | | catheterization showed patent [...] | vegetation noted. No obvious vegetations on napaimute | | valves.07/02/17: Status post transfemoral TAVR [...] IMPLANTED GENERATOR | | Medtronic Adapta [id number] 03/11/2011 RV LEAD Medtronic | | Active bipolar Capsurefix 4076/52 cm [id number] 03/11/2011 A LEAD | | Medtronic Active bipolar Capsurefix 4076/45 cm [id number] | | 03/11/2011 | + + + [...] + + | Coronary artery disease involving napaimute coronary artery of | | | napaimute heart without angina pectoris | | + [...] left heart catheterization by Dr. Garcia at [facility] | | Center on 02/01/10 showing 90% [...] 02/02/10, by Dr. Obrien, at | | [facility]. Last Assessment & Plan: | + + + +---+ | Difficult intubation | | + +---+ + + | Overview: squamous cell carcinoma of the base of the tongue, | | Surgery at [facility], XRT at [facility]. 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 [address] | | | | | | [place] | | | | | | [address] | | | | | | | | +--------+---------+ + + + | 09/01/ | Office | | Moris Hassan | | | 2018 | Visit | | MD Jaison Pascual | | | | | | [address] [place] | | | | | | [place] [address] | | | | | | [phone] | | | | | | | [...] 04/24/ | 9600CM | | 29mm - [id number]: | Heart | | LIFESCIENCE | | 2018 | 29A | | Qty: 1 on 07/02/2017 by | Valve | | S LLC - | | | /[id number] | | Roverto Goldstein MD | | | EDLS | | | 21 / | + +--------+--------+ +--------+--------+--------+ | Graft Patch Spencer-Sancho 1x5x10 - | | Right: | WLGO | | 11/02/ | [id number] | | [id number]: Qty: 1 | | Face | | | 2014 | 0010 / | | on 08/30/2014 by Ronn Patrick | | | | | | | Manav Mueller MD | | | | | | /[id number] | | | | | | | | 25 | + +--------+--------+ +--------+--------+--------+ | Mesh Ultrapro 2.4inx4.3in - | | Right: | JJHCS | | 05/02/ | UMS3 / | | [id number]: Qty: 1 on | | | ETHICON [...] | 05/02/ | UMS3 / | | [id number]: Qty: 1 on | | Inguin | [...] | Taylor Heard, | PACEART | | WEB ADMINISTRATOR 10/17/2017 14:22 PATIENT NAME: Najma Omalley | [...] | | | Coronary artery disease involving napaimute coronary artery of napaimute | | | heart without angina pectoris [...] I35.0 424.1 3. Coronary artery disease involving napaimute coronary artery of | | napaimute heart without angina pectoris I25.10 414.01 4. [...] + + | MEDICARE | MEDICA | [id number] | Medica | +1- | | | | RE | | re | [phone] | | | | PART A | | | | | | | AND B | | | | | + +--------+ +--------+ + + | MODA | MODA | [id number] | Indemn | [phone] | [address] [address] | | | HEALTH | | ity | [address] | [place] [address] | | | MDCR | | | [...] | Self [birth year] Home: | [address] | | [place] | [address] | | 1941 | [phone] | [place] | | | [place] | | | [phone] | [address] | + +--------+ +--------+ + +
--- OUTSIDE RECORDS SUMMARY | ~2017-12-24 | XMS | Encounter Summary ---
Demographics + + + | Address | [address] | | | [place] [address] | + + + | Home Phone | | + + + | Preferred Language | Unknown | + + + | Marital Status | | + + + | Episcopal Affiliation | 1013 | + + + | Race | Unknown | + + + | Ethnic Group | Unknown | + + + Author + + + | Author | [facility] | + + + | Organization | [facility] | + + + | Address | Unknown | + + + | Phone | Unavailable | + + + Support + + + + + | Name | Relationship | Address | Phone | + + + + + | Yuri Ghotra Ann | ECON | [address] | | | | | [place] | | | | | [address] | | + + + + + | Fabricio Ghotra | ECON | Unknown | | + + + + + | Melany Ghotra | ECON | Unknown | | + + + + + Care Team Providers + +------+ + | Care Director Advertising Name | Role | Phone | + [...] + + | 10/15/ | Telephone | [facility] | Karrie Colunga, | Other (Prior Auth | | 2018 | | Rheumatology [address] | [place] | Methotrexate | | | | [address] | | Approved) | | | | [place] [address] | | | | | | [phone] | | | +--------+ + + + [...] 2017 | Visit | | [address]ITA [address] | | | | | | [facility] | | | | | | [place] [address] | | | | | | [phone] | | | | | | | | +--------+---------+ + + + as of this encounter Visit Diagnoses Not on filein this encounter"
--- OUTSIDE RECORDS SUMMARY | ~2017-12-24 | XMS | Encounter Summary ---
Demographics + + + | Address | [address] | | | [place] [address] | + + + | Home Phone | | + + + | Preferred Language | Unknown | + + + | Marital Status | | + + + | Druze Affiliation | 1013 | + + + | Race | Unknown | + + + | Ethnic Group | Unknown | + + + Author + + + | Author | [facility] | + + + | Organization | [facility] | + + + | Address | Unknown | + + + | Phone | Unavailable | + + + Support + + + + + | Name | Relationship | Address | Phone | + + + + + | Yuri Ghotra Ann | ECON | [address] | | | | | [place] | | | | | [address] | | + + + + + | Fabricio Ghotra | ECON | Unknown | | + + + + + | Melany Ghotra | ECON | Unknown | | + + + + + Care Team Providers + +------+ + | Care Lump Machine Operator Name | Role | Phone [...] + + | 10/15/ | Telephone | [facility] | Karrie Colunga, | Other (Prior Auth | | 2018 | | Rheumatology [address] | [place] | Methotrexate | | | | [address] | | Approved) | | | | [place] [address] | | | | | | [phone] | | | +--------+ + + + [...] 2017 | Visit | | [address]ITA [address] | | | | | | [facility] | | | | | | [place] [address] | | | | | | [phone] | | | | | | | | +--------+---------+ + + + as of this encounter Visit Diagnoses Not on filein this encounter"
--- OUTSIDE RECORDS SUMMARY | ~2017-12-24 | XMS | Clinical Summary ---
Demographics + + + | Address | [address] | | | [place] [address] | + + + | Home Phone | | + + + | Preferred Language | Unknown | + + + | Marital Status | | + + + | Uatsdin Affiliation | Unknown | + + + [...] Team Providers + +------+ + | Care Personal Lines Appraiser Name | Role | Phone | + +------+ + PP | Unavailable | + +------+ + Source Comments JIGNESH is fully live on both [facility] and [facility] Allergies Not on File Current Medications [...]
--- OUTSIDE RECORDS SUMMARY | ~2017-12-24 | XMS | Encounter Summary ---
Demographics + + + | Address | [address] | | | [place] [address] | + + + | Home Phone | | + + + | Preferred Language | Unknown | + + + | Marital Status | | + + + | Presybeterian Affiliation | Unknown | + + + | Race | Unknown | + + + | Ethnic Group | Unknown | + + + Author + + + | Author | [facility] | | | and [place] | + + + | Organization | [facility] | | | and [place] | + + + | Address | Unknown | + + + | Phone | Unavailable | + + + Support + + + + + | Name | Relationship | Address | Phone | + + + + + | Yuri Ghotra | ECON | [address] | | | | | [place] | | | | | [address] | | + + + + + | Fabricio Ghotra | ECON | [address] | | | | | [place] | | | | | [address] | | + + + + + | Kenna Ghotra | ECON | Unknown | | + + + + + Care Team Providers + +------+ + | Care Milk Processing Worker Name | Role | Phone | [...] | unspecified | [place], [place] | [place] [address] | | | | | site of lip, | [address] | Phone: | | | | | oral | Phone: | [phone] | | | | | cavity, and | [phone] | Fax: | | | | | pharynx | Fax: | [phone] | | | | | | [phone] | | + +--------+ + + + + Encounter Details +--------+---------+ + + + | Date | Type | Department | Care Team | Description | +--------+---------+ + + + | 10/20/ | Office | [facility] | Ronn Patrick MD | Squamous cell | | 2018 | Visit | OTOLARYNGOLOGY [address] | [address] [place] | carcinoma in situ | | | | [address] | [address] [place], | (SCCIS) of lateral | | | | [place], [place] | [place] [address] | portion of tongue | | | | [address] | [phone] | (Primary Dx); | | | | [phone] | | Impacted kahlil of | | [...] also to have his ears cleaned. A Moorpark-Sancho graft was place d on the right [...] | Visit | | MD Jaison Pascual [address] | | | | | | [address] [facility] | | | | | | [place] [address] | | | | | | [phone] | | | | | | | [...]
--- OUTSIDE RECORDS SUMMARY | ~2017-12-24 | XMS | Encounter Summary ---
Demographics + + + | Address | [address] | | | [place] [address] | + + + | Home Phone | | + + + | Preferred Language | Unknown | + + + | Marital Status | | + + + | Cheondoism Affiliation | Unknown | + + + | Race | Unknown | + + + | Ethnic Group | Unknown | + + + Author + + + | Author | [facility] | | | and [place] | + + + | Organization | [facility] | | | and [place] | + + + | Address | Unknown | + + + | Phone | Unavailable | + + + Support + + + + + | Name | Relationship | Address | Phone | + + + + + | Yuri Ghotra | ECON | [address] | | | | | [place] | | | | | [address] | | + + + + + | Fabricio Ghotra | ECON | [address] | | | | | [place] | | | | | [address] | | + + + + + | Kenna Ghotra | ECON | Unknown | | + + + + + Care Team Providers + +------+ + | Care Dredge Pumper Name | Role | Phone | + [...] | unspecified | [place], [place] | [place] [address] | | | | | site of lip, | [address] | Phone: | | | | | oral | Phone: | [phone] | | | | | cavity, and | [phone] | Fax: | | | | | pharynx | Fax: | [phone] | | | | | | [phone] | | + +--------+ + + + + Encounter Details +--------+---------+ + + + | Date | Type | Department | Care Team | Description | +--------+---------+ + + + | 10/20/ | Office | [facility] | Ronn Patrick MD | 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 A Arcadia-Sancho graft was place d on the right [...] | Visit | | MD Jaison Pascual [place] | | | | | | [facility] | | | | | | [place] [address] | | | | | | [phone] | | | | | | | [...]
--- OUTSIDE RECORDS SUMMARY | ~2017-12-24 | XMS | Clinical Summary ---
Demographics + + + | Address | [address] | | | [place] [address] | + + + | Home Phone | | + + + | Preferred Language | Unknown | + + + | Marital Status | | + + + | Adventism Affiliation | 1013 | + + + | Race | Unknown | + + + | Ethnic Group | Unknown | + + + Author + + + | Author | [facility] [employer] | + + + | Organization | [facility] [employer] | + + + | Address | Unknown | + + + | Phone | Unavailable | + + + Support + + + + + | Name | Relationship | Address | Phone | + + + + + | Yuri Ghotra Ann | ECON | [address] | | | | | [place] | | | | | [address] | | + + + + + | Najma Ghotra | ECON | Unknown | | + + + + + | Melany Ghotra | ECON | Unknown | | + + + + + Care Team Providers + +------+ + | Care Mortician Helper Name | Role | Phone | + [...] | | | | Activ | | [id number]-[id number]-[id number] | mouth daily. | | | | [...] | | | | | | | ([facility]) | | | | | | | [...] + + | Coronary artery disease involving [place] coronary artery of | 10/13/2017 | | [place] heart without angina pectoris | | + [...] left heart catheterization by Dr. Garcia at [facility] | [facility] on 02/01/10 showing 90% stenosis of the proximal RCA with | | luminal irregularities mid and proximal LAD and circumflex. | | Status post successful percutaneous intervention with stenting of | | the ostium of the RCA with Promus 4 X 15 mm stent. Recommended | | to be on Plavix for one year, on 02/02/10, by Dr. Obrien, at | | [facility].Last Assessment & Plan: | + + + + + | Diabetes mellitus, type II ([facility]) | 10/13/2017 | + + + | [...] IMPLANTED | | GENERATOR Medtronic Adapta [id number] [id number] 03/11/2011 RV LEAD | | Medtronic Active bipolar Capsurefix 4076/52 cm [id number] | | 03/11/2011 A LEAD Medtronic Active bipolar Capsurefix 4076/45 cm | | [id number] 03/11/2011 | + + Resolved Problems + [...] factor | | | | | | ([facility]) (Primary Dx); | | | | | [...] + | 02/18/ | Office | | Izabela, | | | 2018 | Visit | | [address] | | | | | | [facility] | | | | | | [place] [address] | | | | | | [phone] | | | | | | | [...] | 2019 | 5 / | | [id number]: Qty: 1 on | | | | [...] +------+-------+ + | MEDICARE | MEDICA | [id number] | | | [address] | | | RE | | | | [place] [address] | | | IP-OP | | | | | + +--------+ +------+-------+ + | ODS HEALTH PLAN | ODS | [id number] | | | | | | HEALTH [...] | Self | [birth year] | Home: | [address] | | | al/Fam | | 1941 | [phone] | [place] | | | [place] | | | [phone] | [phone] | + +--------+ +--------+ + +
--- OUTSIDE RECORDS SUMMARY | ~2017-12-24 | XMS | Encounter Summary ---
Demographics + + + | Address | [address] | | | [place] [address] | + + + | Home Phone | | + + + | Preferred Language | Unknown | + + + | Marital Status | | + + + | Amish Affiliation | 1013 | + + + | Race | Unknown | + + + | Ethnic Group | Unknown | + + + Author + + + | Author | [facility] [employer] | + + + | Organization | [facility] [employer] [facility] | + + + | Address | Unknown | + + + | Phone | Unavailable | + + + Support + + + + + | Name | Relationship | Address | Phone | + + + + + | Yuri Ghotra Ann | ECON | [address] | | | | | [place] | | | | | [address] | | + + + + + | Fabricio Ghotra | ECON | Unknown | | + + + + + | Melany Ghotra | ECON | Unknown | | + + + + + Care Team Providers + +------+ + | Care Health Record Technician Name | Role | Phone | [...] + + | 10/15/ | Documentati | [facility] | Karrie Colunga, | Other (Approval | | 2018 | on Only | Rheumatology [address] | [place] | letter for | | | | [address] | | Methotrexate) | | | | [place] [address] | | | | | | [phone] | | | +--------+ + + + [...] [address] | | | | | | [facility] | | | | | | [place] [address] | | | | | | [phone] | | | | | | | | +--------+---------+ + + + as of this encounter Visit Diagnoses Not on filein this encounter"
--- OUTSIDE RECORDS SUMMARY | ~2017-12-24 | XMS | Clinical Summary ---
Demographics + + + | Address | [address] | | | [place] [address] | + + + | Home Phone | | + + + | Preferred Language | Unknown | + + + | Marital Status | | + + + | Tenriism Affiliation | 1013 | + + + | Race | Unknown | + + + | Ethnic Group | Unknown | + + + Author + + + | Author | [facility] [employer] | + + + | Organization | [facility] | + + + | Address | Unknown | + + + | Phone | Unavailable | + + + Support + + + + + | Name | Relationship | Address | Phone | + + + + + | Yuri Ghotra Ann | ECON | [address] | | | | | [place] | | | | | [address] | | + + + + + | Najma Ghotra | ECON | Unknown | | + + + + + | Melany Ghotra | ECON | Unknown | | + + + + + Care Team Providers + +------+ + | Care Cello Teacher Name | Role | Phone | + [...] | | | | Activ | | [id number] | mouth daily. | | | | [...] | | | | | | | ([facility]) | | | | | | | [...] + + | Coronary artery disease involving cherokee coronary artery of | 10/13/2017 | | cherokee heart without angina pectoris | | + [...] left heart catheterization by Dr. Garcia at [facility] | [facility] on 02/01/10 showing 90% stenosis of the proximal RCA with | | luminal irregularities mid and proximal LAD and circumflex. | | Status post successful percutaneous intervention with stenting of | | the ostium of the RCA with Promus 4 X 15 mm stent. Recommended | | to be on Plavix for one year, on 02/02/10, by Dr. Obrien, at | | [facility].Last Assessment & Plan: | + + + + + | Diabetes mellitus, type II ([facility]) | 10/13/2017 | + + + | [...] IMPLANTED | | GENERATOR Medtronic Adapta ADDR01 [id number] 03/11/2011 RV LEAD | | Medtronic Active bipolar Capsurefix 4076/52 cm [id number] | | 03/11/2011 A LEAD Medtronic Active bipolar Capsurefix 4076/45 cm | | [id number] 03/11/2011 | + + Resolved Problems + [...] factor | | | | | | ([facility]) (Primary Dx); | | | [...] [address] | | | | | | [facility] | | | | | | [place] [address] | | | | | | [phone] | | | | | | | [...] | 2019 | 5 / | | [id number]: Qty: 1 on | | | | [...] +------+-------+ + | MEDICARE | MEDICA | [id number] | | | [address] | | | RE | | | | [place] [address] | | | IP-OP | | | | | + +--------+ +------+-------+ + | ODS HEALTH PLAN | ODS | [id number] | | | | | | HEALTH [...] | Self | [birth year] | Home: | [address] | | | al/Fam | | 1941 | [phone] | [place] | | | [place] | | | [phone] | [phone] | + +--------+ +--------+ + +
--- OUTSIDE RECORDS SUMMARY | ~2017-12-24 | XMS | Encounter Summary ---
Demographics + + + | Address | [address] | | | [place] [address] | + + + | Home Phone | | + + + | Preferred Language | Unknown | + + + | Marital Status | | + + + | Adventism Affiliation | 1013 | + + + | Race | Unknown | + + + | Ethnic Group | Unknown | + + + Author + + + | Author | [facility] [employer] | + + + | Organization | [facility] | + + + | Address | Unknown | + + + | Phone | Unavailable | + + + Support + + + + + | Name | Relationship | Address | Phone | + + + + + | Yuri Ghotra Ann | ECON | [address] | | | | | [place] | | | | | [address] | | + + + + + | Fabricio Ghotra | ECON | Unknown | | + + + + + | Melany Ghotra | ECON | Unknown | | + + + + + Care Team Providers + +------+ + | Care Landscape Contractor Name | Role | Phone | + [...] + + | 10/14/ | Office | [facility] | [place], | Rheumatoid arthritis | | 2018 | Visit | Rheumatology [address] | [address] | of multiple sites | | | | [facility] | [facility] | with negative | | | | [place] [address] | [place] [address] | rheumatoid factor | | | | [phone] | [phone] | ([facility]) (Primary Dx); | | | | | | High risk medication | | | | | | use; Rheumatoid | | | | | | arthritis involving | | | | | | both hands with | | | | | | negative rheumatoid | | | | | | factor ([facility]); | | | | | | Primary [...] you can send us a message/request using Spoonity or call our o ffice at [phone]. To reach Oneyda HERN[place]NDEZ type extension [phone]. If you are unable to reach a [...] can also look at your results on Averailt. If you are experiencing an emergency, please [...] On July 23, 2017 followed up with [facility] in [facility] discharged the same day and was placed on Augmentin 3. On July 24 reported to [place] [facility] in [facility] still not feeling well and positive blood cultures, 4 out of 4 vials positive for gram-positive co cci 4. On July 24 care was transferred to [place] for higher level of care secondary to bacter emia, abnormal chest x-ray, positive C. difficile and a concern for possible endocarditis gi thelma his recent TAVR in June 2017 5. July 30, 2017 PEG tube placed for nutrition and history of chronic aspiration 6. Discharge from [facility] on August 01, 2017 and was followed [...] Assessment: 3 CDAI: 11 Labs reviewed in [facility] October 03, 2017 (cbc cmp,crp-Interpath) CBC-hgb/hct-9.2, 28.1. CMP- satisfactory, CRP 2.8 (range 0-5)-satisfactory 03/21 T- spot TB neg. 2016 hep b/c neg. Reviewed chart notes, labs and imaging form other provider(s) since the last visit. Reviewed extensive notes from [facility] and cardiology Assessment and Plan: Visit Diagnoses [...] symptoms. This document has been prepared with [employer] voice recognition system. The possibility of "s ound alike" packaging line operator errors, and additions, or deletions may occur. [...] 2017 | Visit | | Estrella Desir [facility] [address] | | | | | | [facility] | | | | | | [place] [address] | | | | | | [phone] | | | | | | | [...]
--- OUTSIDE RECORDS SUMMARY | ~2017-12-24 | XMS | Clinical Summary ---
Demographics + + + | Address | [address] | | | [place] [address] | + + + | Home Phone | | + + + | Preferred Language | Unknown | + + + | Marital Status | | + + + | Taoist Affiliation | Unknown | + + + | Race | Unknown | + + + | Ethnic Group | Unknown | + + + Author + + + | Author | [facility] | | | and [place] | + + + | Organization | [facility] | | | and [place] | + + + | Address | Unknown | + + + | Phone | Unavailable | + + + Support + + + + + | Name | Relationship | Address | Phone | + + + + + | Yuri Ghotra | ECON | [address] | | | | | [place] | | | | | [address] | | + + + + + | Najma Ghotra | ECON | [address] | | | | | [place] | | | | | [address] | | + + + + + | Kenna Ghotra | ECON | Unknown | | + + + + + Care Team Providers + +------+ + | Care Support Director Name | Role | Phone | + [...] approachReferring Doctor: NEGRITA Ruiz TAVR | | Marketing Researcher: Dr. Lerma 05/29/17 Surgeon #1: Dr. Vasquez 06/03/17urgeon #2: Dr. Goldstein | | 07/01/17TS Risk Profile: 4.058% (Final) Incremental STS Risk Factors: (+3%) Frailty | | [place] Heart Failure Classification: III 5-meter walk test: 7.3 | | secHeight: 5'6" Weight: 73.9kg BMI: 26Echocardiogram: 05/29/17AVA: .75 Peak Velocity : | | Mean Gradient: 28 EF%: 40-45% Pulmonary Pressure: 32 AR: Mild MR: Trace TR: | | Trace CTA chest/abdomen/pelvis/gated chest: 05/29/17[facility] Measurements: Reid | | Measurements: KeyEffxtronic Measurements:Annulus Area: 653 Annulus Area: (see report) [...] Heredia with all appointment information: | | [phone] | |No significant stenosis | | | [...] |Contact ronald Heredia with all appointment information: [phone] | + + + + + | [...] | setting of bacteremia. Likely type 2 DC. Prior cardiac | | catheterization showed patent [...] | vegetation noted. No obvious vegetations on conf[place] salish | | valves.07/02/17: Status post transfemoral TAVR [...] IMPLANTED GENERATOR | | Medtronic Adapta ADDR01 [id number] 03/11/2011 RV LEAD Medtronic | | Active bipolar Capsurefix 4076/52 cm [id number] 03/11/2011 A LEAD | | Medtronic Active bipolar Capsurefix 4076/45 cm [id number] | | 03/11/2011 | + + + [...] + + | Coronary artery disease involving [place] coronary artery of | | | [place] heart without angina pectoris | | + [...] left heart catheterization by Dr. Garcia at [facility] | | Center on 02/01/10 showing [...] 02/02/10, by Dr. Obrien, at | | [facility]. 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 | + + + +---+ | Dysphagia [...] | | 2018 | Visit | | DRY PLASTERER HELPER | dysfunction (HCC) | | | | | | with BRADYCARDIA | | | | | | (Primary Dx); | | | | | | Nonrheumatic aortic | | | | | | valve stenosis; | | | | | | Coronary artery | | | | | | disease involving | | | | | | [place] coronary | | | | | | artery of conf[place] | | | | | | heart [...] | | | | failure) ([facility]) | +--------+---------+ + + + [...] | | 2017 | Visit | | [facility] [address] | | | | | | St [place] | | | | | | [id number] | | | | | | | | +--------+---------+ + + + | 09/01/ | Office | | Moris Hassan | | | 2018 | Visit | | MD Jaison Pascual | | | | | | [address] [place] | | | | | | [place] [address] | | | | | | [phone] | | | | | | | [...] 04/24/ | 9600CM | | 29mm - [id number]: | Heart | | LIFESCIENCE | | 2018 | 29A | | Qty: 1 on 07/02/2017 by | Valve | | S LLC - | | | /[id number] | | Roverto Goldstein MD | | | EDLS | | | 21 / | + +--------+--------+ +--------+--------+--------+ | Graft Patch [place]-Sancho 1x5x10 - | | Right: | WLGO | | 11/02/ | [id number] | | [id number]: Qty: 1 | | Face | | | 2014 | 0010 / | | on 08/30/2014 by Ronn Patrick | | | | | | | Manav Mueller MD | | | | | | /[id number] | | | | | | | | 25 | + +--------+--------+ +--------+--------+--------+ | Mesh Ultrapro 2.4inx4.3in - | | Right: | JJHCS | | 05/02/ | UMS3 / | | [id number]: Qty: 1 on | | | ETHICON [...] | 05/02/ | UMS3 / | | [id number]: Qty: 1 on | | Inguin | [...] | Taylor Heard, | [employer]ACE[employer] | | DRY PLASTERER HELPER 10/17/2017 14:22 PATIENT NAME: Najma Omalley | [...] | | | Coronary artery disease involving [place] coronary artery of conf[place] | | | heart without angina pectoris [...] I35.0 424.1 3. Coronary artery disease involving conf[place] coronary artery of | | conf[place] sal[place] heart without angina pectoris I25.10 414.01 4. [...] + + | MEDICARE | MEDICA | [id number] | Medica | +1- | | | | RE | | re | [phone] | | | | PART A | | | | | | | AND B | | | | | + +--------+ +--------+ + + | MODA | MODA | [id number] | Indemn | [phone] | [address] [address] | | | HEALTH | | ity | [address] | [place] [address] | | | MDCR | | | [...] | Self | [birth year] | Home: | [address] | | [place] | [place] | | 1941 | [phone] | [place] | | | [place] | | | [phone] | [address] | + +--------+ +--------+ + +
--- OUTSIDE RECORDS SUMMARY | ~2017-12-24 | XMS | Encounter Summary ---
Demographics + + + | Address | [address] | | | [place] [address] | + + + | Home Phone | | + + + | Preferred Language | Unknown | + + + | Marital Status | | + + + | Jewish Affiliation | 1013 | + + + | Race | Unknown | + + + | Ethnic Group | Unknown | + + + Author + + + | Author | [facility] [employer] | + + + | Organization | [facility] | + + + | Address | Unknown | + + + | Phone | Unavailable | + + + Support + + + + + | Name | Relationship | Address | Phone | + + + + + | Yuri Ghotra Ann | ECON | [address] | | | | | [place] | | | | | [address] | | + + + + + | Fabricio Ghotra | ECON | Unknown | | + + + + + | Melany Ghotra | ECON | Unknown | | + + + + + Care Team Providers + +------+ + | Care Real Estate Services Coordinator Name | Role | Phone | + [...] + + | 10/14/ | Office | [facility] | [place], | Rheumatoid arthritis | | 2018 | Visit | Rheumatology [address] | [address] | of multiple sites | | | | [facility] | [facility] | with negative | | | | [place] [address] | [place] [address] | rheumatoid factor | | | | [phone] | [phone] | ([facility]) (Primary Dx); | | | | | | High risk medication | | | | | | use; Rheumatoid | | | | | | arthritis involving | | | | | | both hands with | | | | | | negative rheumatoid | | | | | | factor ([facility]); | | | | | | [...] you can send us a message/request using [employer] or call our o ffice at [phone]. To reach Oneyda HERNÁNDEZ type extension [phone]. If you are unable to reach a [...] can also look at your results on Megadynet. If you are experiencing an emergency, please [...] On July 23, 2017 followed up with [facility] Department in [facility] discharged the same day and was placed on Augmentin 3. On July 24 reported to [place] [facility] in [facility] still not feeling well and positive blood cultures, 4 out of 4 vials positive for gram-positive co cci 4. On July 24 care was transferred to [place] for higher level of care secondary to bacter emia, abnormal chest x-ray, positive C. difficile and a concern for possible endocarditis gi thelma his recent TAVR in June 2017 5. July 30, 2017 PEG tube placed for nutrition and history of chronic aspiration 6. Discharge from [facility] on August 01, 2017 and was [...] Assessment: 3 CDAI: 11 Labs reviewed in [facility] October 03, 2017 (cbc cmp,crp-Interpath) CBC-hgb/hct-9.2, 28.1. CMP- satisfactory, CRP 2.8 (range 0-5)-satisfactory 03/21 T- spot TB neg. 2016 hep b/c neg. Reviewed chart notes, labs and imaging form other provider(s) since the last visit. Reviewed extensive notes from [facility] and cardiology Assessment and Plan: Visit Diagnoses [...] symptoms. This document has been prepared with [employer] voice recognition system. The possibility of "s ound alike" director of consumer affairs errors, and additions, or deletions may occur. [...] 2017 | Visit | | Estrella Desir [facility] [address] | | | | | | [facility] | | | | | | [place] [address] | | | | | | [phone] | | | | | | | [...]
[~2017-12-24 09:04] MED LIST changes: -B-125000 MC2 PO; +B-125000 MC2 PT; -BAYER CHEWABLE81 MG PO; +BAYER CHEWABLE81 MG PT; +CITALOPRAM HBR20 MG PT; -FEROSUL325 MG PO; +FEROSUL325 MG PT; -FOLIC ACID1 MG PO; +FOLIC ACID1 MG PT; -LIPITOR40 MG PO; +LIPITOR40 MG PT; +PLAQUENIL200 MG PT; +PLAVIX75 MG PT; -UNITHROID50 MCG PO; +UNITHROID50 MCG PT
[2017-12-24] MEDS ORDERED: PREDNISOLONE ACE5 ML OS (10:04)
[2017-12-24] MEDS ORDERED: FLAGYL250 MG PT (10:05)
--- NOTE | 2017-12-24 12:42 | NUR ---
PT TO FLOOR VIA STRETCHER WITH CAMI SALMERON. PT TRANSFERED TO BED WITH ASSIST. FAMILY IN ROOM INCLUDING MED. VS ASSESSED. PULSE OX ON FOREHEAD.
--- NOTE | 2017-12-24 12:57 | NUR ---
PT RECEIVED FROM THE ED AT APPROXIMATELY 1245, PT BG IS 52, ADMINISTERED APPLE JUICE VIA PEG TUBE FOR BLOOD SUGAR. PT HAS NO DISTRESS AND IS REQUESTING PAIN MANAGEMENT THAT IS STRONGER THAN TYLENOL. HE TOOK TYLENOL THIS AM FOR RIB PAIN AND IT IS UNRESOLVED. BLOOD CULTURES ARE DRAWN AT BEDSIDE ADMIT IS TAKING PLACE. PT HAS NO DISTRESS. WILL CONTINUE TO MONITOR.
--- NOTE | 2017-12-24 14:00 | NUR ---
PT ARRIVED FROM ED AT APPROXIMATELY 1330 VIA STRETCHER. PT HAD NO DISTRESS. PT COMPLAINS OF LEFT RIB PAIN. BLOOD GLUCOSE WAS TAKEN AND RECHECKED. ASKED PROVIDER FOR DEXTROSE IV FOR BG, ORDERS WRITTEN. AND DAUGHTER IN LAW AT BEDSIDE. PT STATES THAT FEEDING TUBE IS POSITIONAL AND SOME ENSURE WAS SPILLED WHEN FEEDING TUBE HAD DIFFICULTY FLUSHING, PT AND BEDDING CHANGED. REPOSITIONED PT ON PILLOWS DUE TO DECUB. WILL CONTINUE TO MONITOR.
--- NOTE | 2017-12-24 14:21 | NUR ---
PTS BS ON ARRIVAL WAS 52, ADMINISTERED APPLEJUICE IN G TUBE. THEN BS WAS 65, ADMINISTERED ENSURE. BS WAS THEN 38. ADMINSTERED D50 25ML. PT ALSO HAS TEMP OF 102. WILL ADMINISTER TYLENOL CALISTA. PT TOLERATING ALL WELL AND DENIES CONCERNS OTHER THAN BEING COLD. PT IN ROOM.
[2017-12-24] MEDS ORDERED: VITAMIN D-32000 UNI1 PT (14:27)
[2017-12-24] MEDS ORDERED: VITAMIN E400 UNIT PT (14:28)
[2017-12-24] MEDS ORDERED: VITAMIN B-1100 M1 PT (14:28)
--- NOTE | 2017-12-24 14:31 | NUR ---
Medications reconciled using med list and MAR
--- NOTE | 2017-12-24 14:31 | NUR ---
CALLED DR BENNETT TO NOTIFY OF LOW BS AND ADMINISTRATION OF D50. HE FURTHER ORDERED D5LR @75 FOR NOW. PLACED ORDER IN COMPUTER AND STARTED IVF DIRECTED.
--- NOTE | 2017-12-24 14:41 | NUR ---
BS NOW 88. CHANGING PT'S BEDDING AND PICTURES TAKEN OF SORE ON REAR. PT TOLERATED WELL.
--- NOTE | 2017-12-24 15:48 | NUR ---
PATIENT TAKEN TO CT SCAN IN THE BED AT THIS TIME
--- NOTE | 2017-12-24 16:07 | NUR ---
SEE COMPLEX WOUND INTERVENTION FOR MEASUREMENTS OF STAGE II PRESSURE ULCER TO COCCYX. DRESSING APPLICATION DONE IN ACCORDANCE W/ORDER AND PATIENT TOLERATES THE APPLICATION WELL. WOUND @ 12:00 LOCATION MEASURES APPROXIMATELY 0.2 CM IN DIAMETER AND THE BASE OF THE WOUND IS PALE PINK/CREAM. WOUND @ 6:00 LOCATION MEASURES APPROXIMATELY 0.1 CM IN DIAMETER AND IS PALE PINK. NEXT DRESSING CHANGE DUE WEDNESDAY 12/27.
--- NOTE | 2017-12-24 17:33 | NUR ---
DISCUSSED WITH SPEECH THERAPY CONCERNS REGARDING PATIENT SWALLOW, PT REFUSES NECTAR THICK LIQUIDS PER HOME ROUTINE. SPEECH STATES THAT PT IS COMPLETELY NONCOMPLAINT. DUE TO RHONCHI, DISCUSSED WITH PROVIDER CONCERNS AFTER PT REQUESTED A GLASS OF WATER. SIPS WITH SPOON WITH THICKENED WATER OFFERED SUGGESTED AND PT REFUSED. FLUSHED FEEDING TUBE WITH 60 CCS OF WATER AND GAVE PT ORAL SWABS FOR COMFORT. SPEECH THERAPY IS SEEING PT FIRST THING IN THE AM FOR A FORMAL SWALLOW EVALUATION.
--- NOTE | 2017-12-24 18:07 | NUR ---
DISCUSSED PT FALLS AT HOME WITH PT AND SPOUSE AND NOTIFIED CHARGE NURSE. PT IS NONCOMPLIANT IN MOVEMENT ASSISTANCE AND REFUSES TO USE A WALKER OR ASSIST AT HOME. DISCUSSED THE RAMIFICATIONS OF FUTURE FALLS, INCLUDING BREAKING BONES AND POTENTIAL SAFETY ISSUES AT HOME DUE TO FALLING. WILL CONTINUE TO MONITOR.
--- NOTE | 2017-12-24 19:42 | NUR ---
coop with assessment, in chair.
--- NOTE | 2017-12-24 21:32 | NUR ---
ROUNDED CHARGE. PATIENT ASSISTED WITH FOLDER AND NOTCHER TO THE BED FROM COMMODE. PATIENT DENIES ANY COMMENTS, QUESTIONS, OR CONCERNS. CALL LIGHT IN REACH.
--- NOTE | 2017-12-24 22:22 | NUR ---
IN BED, PT WEARING HOME CPAP. EYES CLOSED, NOR SHARYN DISTRESS. TF PATENT. SCDS IN PLACE
--- NOTE | 2017-12-24 23:37 | NUR ---
CAMI DUVAL AND I HELPED PATIENT FROM BEDSIDE COMMODE TO BED. CONTINUOUS PULSE OXIMETRY ON. CALL LIGHT AND BESIDE TABLE ARE WITHIN REACH. PATIENT WANTS CURTAIN CLOSE AND DOOR SHUT.
--- NOTE | 2017-12-25 00:42 | NUR ---
RESTING, EYES CLOSED, CPAP IN PLACE, CALL LIGHT AT HANDS REACH
--- NOTE | 2017-12-25 02:39 | NUR ---
Coop with vitals, wearing and tolerating CPAP, turned, no c/o pain. ASpiration and fall precaution in place. call light at hands reach
--- NOTE | 2017-12-25 03:30 | NUR ---
ATIVAN EFFECTIVE, NOT RESTLESS, CALM, NO RESP DISTRESS, TURNS SELF IN BED, FAMILY AT BEDSIDE
--- NOTE | 2017-12-25 04:28 | NUR ---
AWAKENS EASILY, TURNED, WEARING CPAP, CBG AT NURSES DISCRETION PRN DONE CBG 191
--- NOTE | 2017-12-25 06:24 | NUR ---
UP TO BS WITH 2 PEOPLE ASSIST AND FWW. WEAK GAIT, LEFT SIDED WEAKNESS . GARBLED SPEECH. PEG TUBE PATENT WITH FEEDINGS 4X/DAY AND 50CC FLUSHES AFTERWARDS. MEDS GIVEN THROUGH PEG TUBE. HOB ELEVATED FOR 1 HR AFTERWARDS. ASPIRATION PRECAUTIONS INPLACE. PT DECLINES TO TAKE THICKENED FLUIDS. PT IV SITE INTACT, NO C/O ADVERSE REACTION TO ABX, HAS VOIDED QS AND HAS HAD 2 BM. LEGS 2+ EDEMA AT FEET AND ANKLES, ELEVATED. RINCON, DOES NOT FOLLOW DIRECTIONS WELL, EASILY REDIRECTABLE
--- NOTE | 2017-12-25 06:45 | NUR ---
DR BENNETT NOTIFIED OF INSULIN BEING HELD LAST NIGHT. NEW ORDERS TO DC IVF AND SL PT OBTAINED, KEEP CBG AC&HS.
--- NOTE | 2017-12-25 09:43 | NUR ---
PT IS RESTING AT BEDSIDE, NO DISTRESS. PT DENIES SOB, SATS AT 100% PER CONTINUOUS PULSE OX. PAIN HAS BEEN MANAGED WELL BY TYLENOL AND LIDOCAINE. PT HAD 0 RESIDUAL WHEN FEEDING TUBE WAS CHECKED. CRUSHED MEDS TO TUBE WITH JEVITY PER SCHEDULE. NPO ADVISED BY SPEECH, SWABS FOR ORAL CARE ARE AT BEDSIDE. PT UP WITH PHYSICAL THERAPY WITH WALKER. INSULIN WAS REFUSED BY PT AND BG WAS 120 THIS AM. WILL CONTINUE TO MONITOR.
--- NOTE | 2017-12-25 09:55 | NUR ---
CARE CONFERENCE PRESENT: PT, - XENIA MCDONALD, SON- ULI AND HIS MOUSTAPHA. STAFF: DR BENNETT, [facility], MYSELF CASE MANAGEMENT, ZULY MCKEON CNA CONSULTING BUSINESS DEVELOPER NURSE. DR BENNETT DISCUSSED WITH THE PT ABOUT TAKING THINGS BY MOUTH FOR EXAMPLE GOING TO HAVE A DONUT AND COFFEE, HE STATES THAT CAN CAUSE ASPIRATION PNUEMONIA HE IS ANY INPT, DR BENNETT STATED THAT WE HAVE TO TREAT WITH ANTIBX AND GETTING LONGER AND LONGER TO GET OVER TO DO WHAT GO HOME AND REPEAT IT AGAIN, NOW HE DID EXPLAIN THAT IF THE PT WANTED TO BE COMFORT MEASURES HE COULD EAT WHAT-EVER HE WANTED AND NOT HAVE TO GET THE ANTIBX OR COME TO TO HOSPITAL. I THINK THE SON AND DAUGHTER IN LAW GRASPED THIS, NOT SURE ABOUT PT . PT LOOKES UP AT DR BENNETT AND SAYS "CAN I HAVE COFFEE AND DOUGHNUTS JUST ONCE A WEEK" DR BENNETT STATED NO NOTHING BY MOUTH IF YOU CHOOSE NOT TO GET PNUEMONIA AND EVEN WITH NPO YOU CAN'T GUARANTEE YOUR SECRETIONS AREN'T THE ISSUE. FAMILY AND PT DENIED QUESTIONS.
--- NOTE | 2017-12-25 10:06 | NUR ---
pt is sitting up in bed resting safely with call light in reach. pt is speaking with Dr. Jnekins
--- NOTE | 2017-12-25 11:26 | NUR ---
PT UP TO CHAIR, USING SUCTION FOR SECRETIONS. TOLERATED MORNING FEED OK. PT STRENGTH IS IMPROVED TODAY, ABLE TO USE WALKER AND x1 ASSIST FOR MOVING TO CHAIR. WILL CONTINUE TO MONITOR.
--- NOTE | 2017-12-25 13:16 | NUR ---
TALKED WITH JER, PATIENT'S NURSE, AND SHE MENTIONED PATIENT TAKES 1.5 BOXES OF JEVITY 1.2 AT EACH FEEDING AT HOME. TUBE FEEDING INSTRUCTIONS HAVE BEEN UPDATED. PATIENT WILL BE RECEIVING 6 BOXES OF JEVITY 1.2 WHICH WILL PROVIDE 1710 CALORIES, 78 GRAMS OF PROTEIN AND 1162 ML WATER. CONTINUE WITH 50 ML WATER FLUSHES AFTER EACH FEEDING. WILL ADJUST WATER FLUSHES IF NEEDED DEPENDING ON PATIENT'S IV FLUIDS.
--- NOTE | 2017-12-25 14:04 | NUR ---
pt was sitting up in chair for vitals, pt then needed to use the bathroom. OT came in the room at that time and asked to assist him, told them to call if they needed any help.
--- NOTE | 2017-12-25 17:20 | NUR ---
REPORTED TO PROVIDER CONDITION OF FEEDING TUBE, LEAKING WITH NO UNDERLYING DRESSING. FAMILY REPORTS THAT THIS IS A CHRONIC ISSUE AND THEY CLEAN IT AT HOME WITH HYDROGEN PEROXIDE. MINIMAL DRAINAGE SEEN TODAY, CRUSTING TO SITE. APPLIED GAUZE TO SITE AND REQUESTED PROVIDER TO SEE THE PATIENT. FEEDING TUBE HAS BEEN POSITIONAL BUT HAS INFUSED WELL TODAY. WILL CONTINUE TO MONITOR.
--- NOTE | 2017-12-25 18:05 | NUR ---
PT HAS BEEN UP TO CHAIR FOR MOST OF THE AFTERNOON, REFUSING TO SIT ON PILLOWS OR REPOSITION FOR THE SAKE OF HIS PRESSURE ULCER. EDUCATION PROVIDED TO PT REGARDING SAFETY AND THE NEED FOR REPOSITION. WILL CONTINUE TO MONITOR.
--- NOTE | 2017-12-25 18:19 | NUR ---
pt is sitting up in chair with feet elvated and call light in reach. pt asked for a tv guide
--- NOTE | 2017-12-25 18:46 | NUR ---
PT HAS IMPROVED TODAY. PT UP TO CHAIR FOR THE MAJORITY OF SHIFT, FAMILY AT BEDSIDE. PT HAS BEEN USING EYEDROPS FROM HOME, CHARTED IN JUL. PT DENIES PAIN, LIDOCAINE PATCH AND TYLENOL WORKING WELL. SATS STABLE WITH CONTINUOUS PULSE OX, PT DENIES SOB. FEEDING TUBE HAS LEAKED INTERMITTENTLY TODAY, FAMILY STATES THIS IS A CONSISTENT PROBLEM, NOTIFIED PROVIDER AND PROVIDED A DRESSING TO HELP WITH DRAINAGE. EDEMA IS MINIMALLY CHANGED FROM YESTERDAY. PT HAS REFUSED REPOSITIONING THROUGHOUT SHIFT. PT WAS OFFICIALLY MADE NPO WITH SWALLOW STUDY, CARE CONFERENCE TODAY, NO CHANGES TO CARE PLAN.
--- NOTE | 2017-12-25 19:40 | NUR ---
RECEIVED REPORT FROM DAY SHIFT RN. PATIENT IS RESTING IN THE RECLINER. NO NEEDS NOTED. CALL LIGHT IN REACH.
--- NOTE | 2017-12-25 20:10 | NUR ---
ATTEMPTED TO START PATIENTS FEEDING. PATIENT RESFUSED FEEDING STATING "ITS TO LATE, I DO MY LAST FEEDING AT HOME AT 5". EDUCATED PATIENT ON IMPORTANCE OF NUTRITION. PATIENT STATED "IF I DO IT THIS LATE, I WILL BE UP ALL NIGHT". PATIENT AGAIN REFUSED. PATIENT DENIES ANY NEEDS. WILL RETURN WITH PATIENTS. NIGHT MEDICATIONS. CALL LIGHT IN REACH. N ONEEDS NOTED.
--- NOTE | 2017-12-25 21:30 | NUR ---
PATIENT ASSISTED TO THE BED FROM THE TRACTION POWER ENGINEER. PATIENT ASSESMENT COMPLETED. PATIENT EXPRESSES FRUSTRATION WITH EVENING MEDICATIONS NOT BEING GIVEN BEFORE 1900 LIKE HE TAKES THEM AT HOME. EDUCATED PATIENT THAT IN THE HOSPITAL WE GIVEN THEM AROUND 2100. PATIENT STATED "I NEED THEM EARLIER SO I CAN BE ASLEEP BY 9". VERBALIZED TO PATIENT THAT THE MD WOULD BE NOTIFIED OF PATIENTS REQUEST. PATIENT VERBALIZED UNDERSTANDING. PATIENT REFUSED SS INSULIN. PATIENTS EVENING MEDICATIONS GIVEN PER ORDER THROUGHT JTUBE. PATIENT RATES PAIN AT A /10. PATIENT GIVEN SCHEDULED TYLENOL PER ORDER. PATIENT DENIES THE NEED FOR FURTHER PAIN MEDICATION AT THIS TIME. PATIENT ASSISTED IN PLACING HOME CPAP ON. NO FURTHER NEEDS NOTED. CALL LIGHT IN REACH.
--- NOTE | 2017-12-25 21:37 | NUR ---
VITALS AND I&OS DONE AND CHARTED. BLOOD SUGAR DONE WELL. BEDSIDE TABLE AND CALL LIGHT WITHIN REACH.
--- NOTE | 2017-12-25 23:56 | NUR ---
PATIENT IS RESTING IN BED WITH EYES CLOSED, RR 17. HOME CPAP IN PLACE. CALL LIGHT IN REACH.
--- NOTE | 2017-12-26 01:12 | NUR ---
PATIENT ALERTED STAFF THAT HIS IV WAS BEEPING. IV INFUSING. PATIENT DENIES ANY NEEDS AT THIS TIME. PATIENT IS RESTING IN BED WEARING HOME CPAP. CALL LIGHT IN REACH.
--- NOTE | 2017-12-26 04:38 | NUR ---
PATIENT HAS RESTED WELL THROUGHOUT THE SHIFT. PATIENT IS NPO PER ST. PATIENT IS WORKING WITH PT/OT. PATIENT IS A 1-2 PA W/FWW. PATIENT HAS LEFT SIDED WEAKNESS. PATIENT HAS FEEDING TUBE IN PLACE AND IS RECEIVING FEEDINGS X2 DAILY. PATIENT HAS WOUND CARE CONSULT. PATIENT REFUSED NIGHT FEEDING AND SS INSULIN. IV INFUSING. PATIENT COMPLAINS OF LEFT RIB PAIN. PATIENT IS RECEIVING SCHEDULED TYELNOL FOR PAIN. PATIENTS SPEECH IS HARD TO UNDERSTAND AT TIMES. PATIENT IS AAOX3 AND USES CALL LIGHT APPROPRIATELY.
--- NOTE | 2017-12-26 06:04 | NUR ---
PATIENT ASSESMENT COMPLETED. PATIENTS MORNING MEDICATIONS GIVEN PER ORDER. PATIENT DENIES ANY PAIN. LAB IN ROOM TO DRAW BLOOD. PATIENT DENIES ANY NEEDS AT THIS TIME. CALL LIGHT IN REACH. PATIENT EMAINS RESTING IN BED WITH HOME CPAP ON.
--- NOTE | 2017-12-26 08:02 | NUR ---
PATIENT CALLED FOR ASSISTANCE TO GET UP INTO THE BATHROOM. THIS CARE TEAM COORDINATOR SCHEDULER ASSISTED PATIENT UP INTO BATHROOM. LINENS CHANGED. PATIENT HAD LARGE LOOSE STOOL. RN NOTIFIED. PATIENT WASHED HANDS AND FACE AT BATHROOM SINK AND PERFORMED ORAL CARE BY RINSING WITH MOUTHWASH. PATIENT STATES HE WOULD LIKE TO SHOWER TODAY "BUT NOT UNTIL THE EVENING". PATIENT SITTING UP IN BEDSIDE RECLINER AT THIS TIME. CALL LIGHT AND ORAL SUCTION IN REACH. FEET ELEVATED. NO OTHER NEEDS AT THIS TIME.
--- NOTE | 2017-12-26 08:45 | NUR ---
patient sitting up in chair. asked if it was okay to do feeding and medications at this time. patient stated yes. medications scanned and then crushed. patient had no residual at this time. flushed. medication given with flushes inbetween. patient tolerated. jevity 1.2 1 and 1/2 cans given slow bolus push. patient tolerated well. cleaned and taped feeding tube site. pateint given eye drops and pain patch placed on l ribs. no sob. patient reports feeling stronger at this time. pt planning on working with patient when finished with medications. family at bedside. patient requesting different medication times and feeding times for night due to that patient likes to be in bed by 2100.
--- NOTE | 2017-12-26 09:01 | NUR ---
RN IN ROOM WITH PATIENT AT THIS TIME.
--- NOTE | 2017-12-26 09:47 | NUR ---
PT IN ROOM WORKING WITH PATIENT AT THIS TIME.
--- NOTE | 2017-12-26 10:30 | NUR ---
PATIENT'S BLOOD PRESSURE REPORTED LOW 77/28 BY THE EXPANSION JOINT FINISHER TO THIS RN, RN REPORTED LOW BLOOD PRESSURE TO DOCTOR SABRINA, 1 LETER OF LR BOLUS ORDERED AND HUNG, PATIENT REPORTS SOME DIZZINESS AND REMAINS SITTING UP IN THE CHAIR AT THIS TIME. HE AGREES TO NOT ATTEMPT TO STAND AND WILL CALL FOR ANY HELP.
--- NOTE | 2017-12-26 10:42 | NUR ---
BLOOD PRESSURE TAKEN MANUALLY. RN NOTIFIED/
--- NOTE | 2017-12-26 10:49 | NUR ---
PATIENT GETTING BOLUS. PATEINT STATING DIZZINESS IMPROVED. IT WAS ONLY WHEN STANDING. LAB CALLED. ROUNDED IN ROOM. VITALS RECHECKED.
--- NOTE | 2017-12-26 12:31 | NUR ---
PATIENT WAS ABLE TO COUGH UP SPUTUM FOR SAMPLE. SENT TO [facility]. PATIENT HAD 5 MLS OF RESIDUAL. STARTED TUBE FEEDING. PATIENT CONTINUE TO TOLERATE WELL. FLUSHED WITH 50MLS OF WATER. ASSISTED TO THE BR WITH A 1 ASSIST AND WALKER.
--- NOTE | 2017-12-26 13:35 | NUR ---
ROUNDED WITH DR. BARRETT. PATIENT FAMILY AT BEDSIDE.
--- NOTE | 2017-12-26 14:00 | NUR ---
PATIENT REQUESTED A ROOM CHANGE FOR A VIEW OUT HIS WINDOW. ASSISTED PATIENT TO NEW ROOM. ORTHOSTATIC VITALS TAKEN. REPORTED RESULTS TO DOCTOR AND DOCUMENTED. DURING THE ENTURE ASSESSMENT OF VITALS PATIENT STATED NO DIZZINESS OR LIGHTHEADEDNESS. TOLERATING WELL WITH STANDING WITH HIS WALKER.
--- NOTE | 2017-12-26 14:05 | NUR ---
PT IN NEW ROOM UP IN CHAIR WITH FAMILY AT BEDSIDE. NO C/O PAIN AT THIS TIME. RECENT ORTHOSTATIC BPS BUT PT ASYMPTOMATIC. PT HAS NO QUESTIONS OR CONCERNS AT THIS TIME. ASSESSMENT COMPLETE. PT USING YANKAUR FOR ORAL SUCTIONS PRN. NO COMPLAINTS OR QUESTIONS AT THIS TIME. CALL LIGHT AND BELONGINGS WITHIN REACH. FALL PRECAUTIONS IN PLACE. WILL CONTINUE TO MONITOR.
--- NOTE | 2017-12-26 14:19 | NUR ---
PATIENT REQUESTS HIS EVENING FEEDING TO BE AT 5 PM INSTEAD OF 8 PM BECAUSE HE HATES GETTING UP AND GOING TO THE BATHROOM AND LIKES TO GO TO BED AT 9 PM. WILL ADJUST THE FEEDING TIMES TO 0800, 1200, 1500, AND 1700. WILL ADD A NOTE THAT IF BLOOD SUGAR IS LOW IN THE MORNING TO SWITCH FIRST FEEDING TO 0600. PATIENT ALSO STATES HE PREFERS 1.25 BOXES (300 ML) AT EACH FEEDING. WILL CONTINUE TO MONITOR.
--- NOTE | 2017-12-26 14:37 | NUR ---
PATIENT SITTING UP IN BEDSIDE RECLINER, CALL LIGHT IN REACH. FAMILY IN ROOM. NO OTHER NEEDS AT THIS TIME.
--- NOTE | 2017-12-26 15:15 | NUR ---
TUBE FEED GIVEN WITH NO COMPLICATIONS; PEG WNL
--- NOTE | 2017-12-26 17:30 | NUR ---
PER PT REQUEST HIS OTHER TUBE FEED GIVEN AT 1730; THIS WAS VERIFIED OKAY WITH FUR STYLIST EARLIER TODAY. PT HAS NO C/O PAIN AT THIS TIME; FAMILY AT BEDSIDE. PT STILL UP IN CHAIR AND COMFORTABLE. NO QUESTIONS OR CONCERNS AT THIS TIME. CALL LIGHT AND BELONGINGS WITHIN REACH. WILL CONTINUE TO MONITOR.
--- NOTE | 2017-12-26 18:03 | NUR ---
PATIENT STATES HE HAS NOT VOIDED SINCE 1400 AND REFUSES TO TRY, STATING THAT HE "WILL CALL WHEN I NEED TO GO." RN NOTIFIED.
--- NOTE | 2017-12-26 18:38 | NUR ---
PT PLEASANT, CALM AND COOPERATIVE THROUGHOUT 12/26/17 DAY SHIFT. TIMES FOR TUBE FEED ADJUSTED WITH ORTHOPEDIC SPECIALIST APPROVAL PER PT REQUEST. LAST FEED OF THE DAY COMPLETED BY THIS RN AT 1730. PT HAS NO CURRENT QUESTIONS OR CONCERNS. PT HAS AMBULATED AND HAS BEEN UP IN HIS CHAIR MAJORITY OF THE SHIFT WITH FREQUENT REPOSITIONING WITH PILLOW SUPPORT TO RELIEVE COCCYX. PT HAD INSTANCES EARLIER IN SHIFT WITH ORTHOSTATIC BPS/DIZZINESS, BUT WITH FLUID BOLUSES, THIS IMPROVED AND PT WAS ASYMPTOMATIC FOR REST OF SHIFT. PER MD REQUEST, ANOTHER SET OF ORTHOSTATIC VS ARE TO BE OBTAINED TOMORROW 12/27/17 MORNING. WILL PASS THIS ON IN REPORT. PT HAS HAD ADEQUATE URINE OUTPUT THROUGHOUT SHIFT; HIS LAST URINE ATTEMPT WAS MISSED IN THE HAT. PT ASSISTED BACK TO CHAIR AT THIS TIME. CALL LIGHT WITHIN REACH, CHAIR LOCKED AND FALL PRECAUTIONS IN PLACE. WILL CONTINUE TO MONITOR.
--- NOTE | 2017-12-26 19:00 | NUR ---
ROUNDED CHARGE. PATIENT IS RESTING IN BED. PATIENT WISHES TO HAVE EVENING MEDICATIONS EARLY. TOLD PATIENT IS WOULD PASS THIS INFO ONTO HIS NURSE. PATIENT AGREED. PATIENT DENIES ANY COMMENTS, QUESTIONS, OR COCERNS. CALL LIGHT IN REACH.
--- NOTE | 2017-12-26 19:30 | NUR ---
IN ROOM FOR REPORT. PT UP AT BEDSIDE CHAIR WATCHING TELEVISION. NO REQUESTS AT THIS TIME. CALL LIGHT WITHIN REACH.
--- NOTE | 2017-12-26 20:35 | NUR ---
IN ROOM TO ADMIN PT'S 2100 MEDS PER EMAR. SHIFT ASSESSMENT COMPLETE. LS HEARD. UPPER LOBES CLEAR BILATERALLY, LOWER LOBES DIMINISHED BILATERALLY. PULSES STRONG, EQUAL BILATERALLY IN UPPER/LOWER EXTREMITIES. PT AOX4. AMBULATED FROM BEDSIDE CHAIR TO BED. DENIES ANY DIZZINESS/ LIGHT HEADEDNESS. BT ACTIVE IN ALL QUADRANTS. VS STABLE. O2 SAT 97% ON RA. DENIES ANY PAIN AT THIS TIME OR FURTHER REQUESTS. CPAP PLACED ON PATIENT FOR BEDTIME. CALL LIGHT WITHIN REACH, BED IN LOW POSITION.
--- NOTE | 2017-12-26 22:10 | NUR ---
HELPED PT INTO THE BATHROOM WITH HIS FWW. PT WILL CALL WHEN HE IS READY TO GET BACK TO BED.
--- NOTE | 2017-12-26 23:48 | NUR ---
PT ASSISTED TO BATHROOM WITH 1 PERSON SBA WITH FWW. PT AMBULATED WELL, SOME SLIGHT SWAYING. PT EDUCATED ON CORRECT USE OF FWW. PT INSISTS ON PICKING UP WALKER. SLIGHTLY IMPULSIVE, EDUCATED PT ON SAFE AMBULATION AND FALL PREVENTION. PT VOIDED UNMEASURABLE CLEAR YELLOW URINE. GAS PASSED. DENIES ANY SOB/CP, DIZZINESS OR LIGHT HEADEDNESS. CPAP PLACED BACK ON PT. CALL LIGHT WITHIN REACH, SUCTION WITHIN REACH, BED IN LOW POSITION. NO FURTHER REQUESTS AT THIS TIME.
--- NOTE | 2017-12-27 06:14 | NUR ---
PT PLEASANT AND COOPERATIVE DURING GRAVEL WHEELER. PT SLEPT THROUGH NIGHT BESIDES BATHROOM TRIPS. PT HAS AMBULATED UP FROM BED TO BATHROOM WITH 1 PERSON SBA SEVERAL TIMES THROUGHOUT THE NIGHT W/FWW. PT HAS SLIGHT SWAYING DURING AMBULATION BUT DENIES ANY DIZZINESS OR LIGHT HEADEDNESS UPON STANDING. MORNING ORTHOSTATIC BP'S REVEALED CONTINUED ORTHOSTATIC HYPOTENSION. LYING BP; 115/66 HR 65 1 MIN STANDING BP 82/55 HR 79 3 MIN STANDING BP 102/49 HR 72 PT UNSYMPTOMATIC DURING BP READINGS. VS STABLE. PT DENIES ANY PAIN. NO NEEDS AT THIS TIME. FLUSHING G TUBE REMAINS EASY. IV FLUIDS PER ORDER. PT HAD SMALL FREQUENT LOOSE STOOLS THROUGHOUT THE NIGHT.
--- NOTE | 2017-12-27 08:35 | NUR ---
PT PLEASANT, CALM AND COOPERATIVE WITH C/O COCCYX DISCOMFORT; I CHANGED HIS DRG ON HIS COCCYX AND FIXED THE PILLOWS ON HIS CHAIR/HELPED HIM REPOSITION TO HIS LIKING. THIS IMPROVED HIS DISCOMFORT. NO OTHER C/O PAIN. ASSESSMENT, MEDS AND FIRST TUBE FEED OF MY SHIFT COMPLETED AT THIS TIME WITH NO ISSUES. PEG WNL. GAUZE AROUND PEG CHANGED AND IS C/D/I. THIS RN ASSISTED PT WITH WALKER TO TOILET DUE TO URGENCY TO HAVE BM ON TOILET. LOOSE STOOLS IN DEPENDS DIAPER BEFORE ABLE TO REACH TOILET. I ASSISTED PT WITH CLEANING HIMSELF. ASSISTED PT BACK TO CHAIR. NO CURRENT QUESTIONS OR CONCERNS AT THIS TIME. CALL LIGHT, BELONGINGS AND YANKAUR WITHIN REACH. FALL PRECAUTIONS IN PLACE. WILL CONTINUE TO MONITOR.
--- NOTE | 2017-12-27 09:46 | NUR ---
pt had shower. pt sitting up in chair. pt has no needs at this time. call light within reach.
[2017-12-27] MEDS ORDERED: DOXYCYCLIN25 MG/5 ML PT (10:39)
[2017-12-27] MEDS ORDERED: DOXYCYCLINE HY100 MG PT (11:28)
[2017-12-27] MEDS ORDERED: OCUFLOX5 ML OS (11:38)
--- NOTE | 2017-12-27 11:45 | NUR ---
PT UP IN CHAIR WITH NO C/O PAIN. FAMILY MEMBERS VISITING. ELECTROLYTE REPLACEMENTS GIVEN WELL SECOND TUBE FEED. PEG REMAINS IN PLACE WITHOUT ANY ISSUES. CALL LIGHT WITHIN REACH. FALL PRECAUTIONS IN PLACE. WILL CONTINUE TO MONITOR AND BE ABLE TO DC PT WHEN HIS MAG SULFATE IS DONE INFUSING.
== END 2017-12-27 13:15 | disposition home or self-care (01) | DRG 871 ==
LOC: ED 09:04 → MS 11:41
PROVIDERS: ADMIT Student in an Organized Health Care Education/Training Program
DX: A41.01 Sepsis due to Methicillin susceptible Staphylococcus aureus (principal); J69.0 Pneumonitis due to inhalation of food and vomit; L98.425 Non-pressure chronic ulcer of back with muscle involvement without evidence of necrosis; A04.72 Enterocolitis due to Clostridium difficile, not specified as recurrent; Z95.2 Presence of prosthetic heart valve; I49.5 Sick sinus syndrome; R13.12 Dysphagia, oropharyngeal phase; Z85.828 Personal history of other malignant neoplasm of skin; Z79.4 Long term (current) use of insulin; E78.5 Hyperlipidemia, unspecified; E03.9 Hypothyroidism, unspecified; M06.9 Rheumatoid arthritis, unspecified; F32.9 Major depressive disorder, single episode, unspecified; Z95.0 Presence of cardiac pacemaker; Z85.12 Personal history of malignant neoplasm of trachea; R53.81 Other malaise; E11.622 Type 2 diabetes mellitus with other skin ulcer; K59.00 Constipation, unspecified
CPT/HCPCS: 36415; 71046; 80048; 80053; 80202; 83605; 83735; 83880; 84100; 84484; 85025; 87040; 87070; 87077; 87186; 87205; 92526; 92610; 93308; 94667; 94668; 94762; 96365; 96366; 96375; 97110; 97116; 97163; 97166; 97535; 99285; J0692; J0696; J1650; J3370; J3475; J7030; J7040; J7050; J7120

== ENCOUNTER 2018-06-09 12:46 | Emergency (ER) | payer MEDICARE, OTHER ==
[~2018-06-09] VITALS: Ht 165.1 cm; Wt 68.3 kg
[~2018-06-09 12:46] MED LIST changes: +ASPIR-LOW81 MG PO; +DOXYCYCLIN25 MG/5 ML PT; +DOXYCYCLINE HY100 MG PT; +FLAGYL250 MG PT; +LIPITOR40 MG PO; +OCUFLOX5 ML OS; +PREDNISOLONE ACE5 ML OS; +VITAMIN B-1100 M1 PT; +VITAMIN D-32000 UNI1 PT; +VITAMIN E400 UNIT PT
[2018-06-09] MEDS ORDERED: MELOXICAM7.5 MG PO (14:37)
== END 2018-06-09 14:43 | disposition home or self-care (01) ==
LOC: ED 12:46
DX: M79.10 Myalgia, unspecified site (principal); M25.50 Pain in unspecified joint; Z95.0 Presence of cardiac pacemaker; Z95.5 Presence of coronary angioplasty implant and graft; Z88.8 Allergy status to other drugs, medicaments and biological substances; Z88.5 Allergy status to narcotic agent; Z79.82 Long term (current) use of aspirin; Z79.899 Other long term (current) drug therapy
CPT/HCPCS: 99283

== ENCOUNTER 2018-07-05 18:19 | Emergency (ER) | payer MEDICARE, OTHER ==
[~2018-07-05] VITALS: Ht 165.1 cm; Wt 67.1 kg
[~2018-07-05 18:19] MED LIST changes: +MELOXICAM7.5 MG PO
--- OUTSIDE RECORDS SUMMARY | 2018-07-05 18:22 | XMS ---
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 E.D. VISIT COUNT (12 MO.) 1 [facility] 8 [facility] TOTAL 9 NOTE: Visits indicate total known visits. ED/UCC VISIT TRACKING (12 MO.) 07/05/2018 18:20 [facility] [place] TYPE: Emergency COMPLAINT: - VOMITING/FEEDING TUBE ISSUE 06/09/2018 12:47 [facility] [place] TYPE: Emergency COMPLAINT: - BODY PAIN DIAGNOSES: - Allergy status to narcotic agent status - Presence of cardiac pacemaker - Allergy status to other drugs, medicaments and biological substances status - shelter (current) use of aspirin - Presence of coronary angioplasty implant and graft - Pain in unspecified joint - MYALGIA, UNSPECIFIED SITE - Other group home (current) drug therapy 12/24/2017 09:05 [facility] [place] TYPE: Emergency COMPLAINT: - RIB PAIN/FALL 12/07/2017 16:31 [facility] [place] TYPE: Emergency COMPLAINT: - LEFT LEG/ARM SWELLING DIAGNOSES: - Other disorders of glycoprotein metabolism - Allergy status to narcotic agent status - Edema, unspecified - Allergy status to other drugs, medicaments and biological substances status - Other specified soft tissue disorders - Other group home (current) drug therapy 11/26/2017 18:25 [facility] [place] TYPE: Emergency COMPLAINT: - FEVER/DIZZIENESS 08/02/2017 12:11 [facility] [place] TYPE: Emergency COMPLAINT: - MEDICATION PROBLEMS DIAGNOSES: - Other group home (current) drug therapy - Enterocolitis due to Clostridium difficile, not specified as recurrent - Malignant (primary) neoplasm, unspecified - Allergy status to other drugs, medicaments and biological substances status - shelter (current) use of antibiotics - Allergy status to narcotic agent status - ENTEROCOLITIS D/T CLOSTRIDIUM DIFFICILE, NOT SPCF RECUR - shelter [facility] DIAGNOSES: - Sepsis-per Dr Leung - Abnormal levels of other serum enzymes - Presence of prosthetic heart valve - Sepsis, unspecified organism - Possible Sepsis - Bacteremia 07/23/2017 16:34 [facility] [place] TYPE: Emergency COMPLAINT: - FEVER DIAGNOSES: - Other group home (current) drug therapy - Otitis media, unspecified, left ear - terminal gauger supervisor (current) use of aspirin - Allergy status to narcotic agent status - Fever, unspecified 07/07/2017 11:12 [facility] [place] TYPE: Emergency COMPLAINT: - FEVER,DIZZIENESS DIAGNOSES: - Other terminal system operator (current) drug therapy - Fever, unspecified - Allergy status to narcotic agent status INPATIENT VISIT TRACKING (12 MO.) 12/24/2017 11:41 [facility] [place] TYPE: Medical Surgical COMPLAINT: - PNEUMONIA DIAGNOSES: - shelter (current) use of insulin - 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 - Pneumonitis due to inhalation of food and vomit - Sepsis due to Methicillin susceptible Staphylococcus aureus - Rheumatoid arthritis, unspecified - Other malaise - Hyperlipidemia, unspecified - Hypothyroidism, unspecified - Presence of prosthetic heart valve - Presence of cardiac pacemaker - Type 2 diabetes mellitus with other skin ulcer - Major depressive disorder, single episode, unspecified - Personal history of other malignant neoplasm of skin - Pneumonia, unspecified organism - Dysphagia, oropharyngeal phase - Constipation, unspecified - Enterocolitis due to Clostridium difficile, not specified as recurrent - Personal history of malignant neoplasm of trachea - Sick sinus syndrome 11/27/2017 00:32 [facility] [place] TYPE: Medical Surgical COMPLAINT: - SEPSIS,C-DIFF,COLITIS DIAGNOSES: - Hyperlipidemia, unspecified - Major depressive disorder, single episode, unspecified - Presence of prosthetic heart valve - Type 2 diabetes mellitus without complications - Other specified sepsis - Sick sinus syndrome - Presence of cardiac pacemaker - Dysphagia, oropharyngeal phase - Rheumatoid arthritis, unspecified - Hypothyroidism, unspecified - Other malaise - Hypo-osmolality and hyponatremia - Enterocolitis due to Clostridium difficile, not specified as recurrent - Unspecified protein-calorie malnutrition - Anuria and oliguria 07/24/2017 23:45 [facility] TYPE: Cardiology DIAGNOSES: - Atherosclerotic heart disease of [place] coronary artery without angina pectoris - Diarrhea, unspecified - Acute and subacute infective endocarditis - Dysphagia, oropharyngeal phase - Rheumatoid arthritis, unspecified - Chronic combined systolic (congestive) and diastolic (congestive) heart failure - Sepsis, unspecified organism - Malignant neoplasm of tongue, unspecified - Abnormal levels of other serum enzymes - Bacteremia - Nonrheumatic aortic (valve) stenosis - Enterocolitis due to Clostridium difficile, not specified as recurrent - Unspecified severe protein-calorie malnutrition - Unspecified foreign body in respiratory tract, part unspecified causing other injury, subsequent encounter - Presence of cardiac pacemaker - STAPHYLOCOCCUS BACTEREMIA - Acute on chronic combined systolic (congestive) and diastolic (congestive) heart failure - Dysphagia, unspecified [email or web address]
[2018-07-05] MEDS ORDERED: AUGMENTIN250 MG/5 M GT (21:36)
[2018-07-05] MEDS ORDERED: ZOFRAN4 MG GT (21:36)
== END 2018-07-05 22:22 | disposition home or self-care (01) ==
LOC: ED 18:19
DX: K29.00 Acute gastritis without bleeding (principal); J18.9 Pneumonia, unspecified organism; Z93.1 Gastrostomy status; Z85.818 Personal history of malignant neoplasm of other sites of lip, oral cavity, and pharynx; Z95.0 Presence of cardiac pacemaker; Z95.5 Presence of coronary angioplasty implant and graft; Z88.5 Allergy status to narcotic agent; Z88.8 Allergy status to other drugs, medicaments and biological substances; Z79.82 Long term (current) use of aspirin; Z79.899 Other long term (current) drug therapy
CPT/HCPCS: 71045; 80053; 81001; 83605; 85025; 85610; 85730; 87502; 96361; 96374; 99283-25; J2543; J7030; J7060

== ENCOUNTER 2018-08-23 13:31 | Emergency (ER) | payer MEDICARE, OTHER ==
[~2018-08-23] VITALS: Ht 165.1 cm; Wt 66.0 kg
--- OUTSIDE RECORDS SUMMARY | ~2018-08-23 | XMS | Encounter Summary ---
Demographics + + + | Address | [address] | | | [place] [address] | + + + | Home Phone | | + + + | Preferred Language | Unknown | + + + | Marital Status | | + + + | Sabianist Affiliation | 1013 | + + + | Race | Unknown | + + + | Ethnic Group | Unknown | + + + Author + + + | Author | [facility] | | | and [place] | + + + | Organization | [facility] | | | and [place] | + + + | Address | Unknown | + + + | Phone | Unavailable | + + + Support + + + + + | Name | Relationship | Address | Phone | + + + + + | Yuri Ghotra | ECON | [address] | | | | | [place] | | | | | [address] | | + + + + + | Fabricio Ghotra | ECON | Unknown | | + + + + + Care Team Providers + +------+ + | Care Powertrain Calibration Engineer Name | Role | Phone | + +------+ + | Dano Chacon MD | PCP | | + +------+ + Reason for Referral Diagnostic/Screening (Routine) + +--------+ + + + + | Status | Reason | Specialty | Diagnoses / | Referred By | Referred To | | | | | Procedures | Contact | Contact | + +--------+ + + + + | Pending | | Radiology | Diagnoses | Ring, | | | Review | | | S/p TAVR | Marcos Mueller, | | | | | | (transcathet | MD [address] | | | | | | er aortic | [address] [place] | | | | | | valve | [address] | | | | | | replacement) | [place] | | | | | | , | [address] | | | | | | bioprostheti | Phone: | | | | | | c | [phone] | | | | | | Procedures | Fax: | | | | | | ECHO | [phone] | | | | | | Complete | | | + +--------+ + + + + Diagnostic/Screening (Routine) + +--------+ + + + + | Status | Reason | Specialty | Diagnoses / | Referred By | Referred To | | | | | Procedures | Contact | Contact | + +--------+ + + + + | Pending | | Radiology | Diagnoses | Ring, | | | Review | | | S/p TAVR | Marcos Mueller, | | | | | | (transcathet | MD [address] | | | | | | er aortic | [address] [place] | | | | | | valve | [address] | | | | | | replacement) | [place] | | | | | | , | [address] | | | | | | bioprostheti | Phone: | | | | | | c | [phone] | | | | | | Procedures | Fax: | | | | | | ECHO | [phone] | | | | | | Complete | | | + +--------+ + + + + Encounter Details +--------+ + + + + | Date | Type | Department | Care Team | Description | +--------+ + + + + | 05/28/ | Hospital | [facility] | Marcos Lerma, | S/p TAVR | | 2019 | Encounter | [facility] [address] | MD [address] | (transcatheter | | | | [facility] [place] | [place] [address] [place], [place] | aortic valve | | | | [place] [address] | [address] | replacement), | | | | [phone] | | bioprosthetic | +--------+ + + + + Social History + +-------+ +--------+------+ | Tobacco Use | Types | Packs/Day | Years | Date | | | | | Used | | + +-------+ +--------+------+ | Never Smoker | | | | | + +-------+ +--------+------+ + +---+---+---+ | Smokeless Tobacco: | | | | | Never Used | | | | + +---+---+---+ + + +---------+ + | Alcohol Use | Drinks/We | oz/Week | Comments | | | ek | | | + + +---------+ + | No | 0 | 0.0 | | | | Standard | | | | | drinks or | | | | | | | | | | equivalen | | | | | t | | | + + +---------+ + + + + | Sex Assigned at | Date Recorded | | | | + + + | Not on file | | + + + + + + + | Job Start Date | Occupation | Industry | + + + + | Not on file | Not on file | Not on file | + + + + + + + + | Travel History | Travel Start | Travel End | + + + + + + | No recent travel history available. | + + documented as of this encounter Medications at Time of Discharge + + + +---------+ + + | Medication | Sig | Dispensed | Refills | Start | End Date | | | | | | Date | | + + + +---------+ + + | acetaminophen | Take 2 tablets via | 120 | 0 | 03/30/20 | | | (TYLENOL) 325 mg | G-tube every 4 hours | tablet | | 18 | | | tablet | as needed for Pain | | | | | | | or Fever. | | | | | + + + +---------+ + + | aspirin 81 mg | Take 1 tablet via | 30 | 0 | 03/30/20 | | | chewable tablet | G-tube Daily. | tablet | | 18 | | + + + +---------+ + + | atorvaSTATin | Take 1 tablet via | 90 | 3 | 03/30/20 | | | (LIPITOR) 40 mg | G-tube nightly. | tablet | | 18 | | | tablet | | | | | | + + + +---------+ + + | Cholecalciferol | Take 1 capsule via | 30 each | 0 | 03/30/20 | | | (VITAMIN D-3) 2000 | G-tube Daily. | | | 18 | | | units CAPS | | | | | | + + + +---------+ + + | citalopram | Take 1 tablet via | 30 | 0 | 03/30/20 | | | (CELEXA) 20 mg | G-tube Daily. | tablet | | 18 | | | tablet | | | | | | + + + +---------+ + + | diclofenac | Apply 4 g topically | | 0 | | | | (VOLTAREN) 1% GEL | 4 times daily. | | | | | + + + +---------+ + + | ferrous sulfate | Take 1 tablet by | | 0 | | | | (IRON) 325 (65 Fe) | mouth Daily. | | | | | | MG TABS | | | | | | + + + +---------+ + + | ferrous sulfate | Take 1 tablet via | 30 | 0 | 08/02/19 | | | 325 mg tablet | G-tube Daily. | tablet | | 18 | | + + + +---------+ + + | hydroxychloroquine | Take 200 mg by mouth | | 0 | 10/15/19 | | | (PLAQUENIL) 200 mg | Daily. | | | 18 | | | tablet | | | | | | + + + +---------+ + + | levothyroxine | Take 1 tablet via | 30 | 0 | 08/02/19 | | | (SYNTHROID) 50 mcg | G-tube Daily. | tablet | | 18 | | | tablet | | | | | | + + + +---------+ + + | NITROSTAT 0.4 MG | Place 1 tablet under | | 0 | 01/01/20 | | | SL tablet | the tongue every 5 | | | 14 | | | | minutes for up to 3 | | | | | | | doses as needed for | | | | | | | chest pain call 911 | | | | | | | if pain persists. | | | | | + + + +---------+ + + | thiamine (VITAMIN | Take 1 tablet via | 90 | 0 | 08/02/19 | | | B-1) 100 mg tablet | G-tube 3 times | tablet | | 18 | | | | daily. | | | | | + + + +---------+ + + | tocopherol | Take 1 capsule via | 30 | 0 | 08/02/19 | | | (VITAMIN E) 400 | G-tube Daily. | capsule | | 18 | | | units capsule | | | | | | + + + +---------+ + + | UNABLE TO FIND | Med Name: Resmed | | 0 | | | | | AirSense 10 autoset | | | | | | | CPAP: 4-15cm | | | | | + + + +---------+ + + documented as of this encounter Plan of Treatment +--------+---------+ + + + | Date | Type | Specialty | Care Team | Description | +--------+---------+ + + + | 09/01/ | Office | Sleep Medicine | Moris Hassan | | | 2018 | Visit | | MD [address] | | | | | | [place] | | | | | | [place] [address] | | | | | | [phone] | | | | | | | | +--------+---------+ + + + | 11/26/ | Office | Cardiology | Taylor Heard, | | | 2018 | Visit | | BLOW PIT OPERATOR [address] | | | | | | [address] [place], [place] | | | | | | [id number] | | | | | | | | +--------+---------+ + + + documented as of this encounter Procedures + +--------+ + + + | Procedure Name | Priori | Date/Time | Associated Diagnosis | Comments | | | ty | | | | + +--------+ + + + | ECHO COMPLETE | Routin | 05/28/2018 | S/p TAVR | Results for this | | | e | 9:55 PST | (transcatheter | procedure are in the | | | | | aortic valve | results section. | | | | | replacement), | | | | | | bioprosthetic | | + +--------+ + + + documented in this encounter Results ECHO Complete (05/28/2018 9:55 PST) + +--------+ + + + | Component | Value | Ref Range | Performed | Pathologist | | | | | At | Signature | + +--------+ + + + | BASELINE | 141/65 | mmHg | [facility] | | | BLOOD | | | | | | PRESSURE | | | | | + +--------+ + + + | Patient | 162lb | | [facility] | | | Weight | | | | | | (lbs) | | | | | + +--------+ + + + | Patient | 5f7in | | [facility] | | | Height | | | | | + +--------+ + + + | LVIDd | 5 | cm | [facility] | | + +--------+ + + + | FS | 20 | % | [facility] | | + +--------+ + + + | LA volume | 112.82 | mL | [facility] | | + +--------+ + + + | Ascending | 2.58 | cm | [facility] | | | aorta | | | | | + +--------+ + + + | AV mean | 7.95 | mmHg | [facility] | | | gradient | | | | | + +--------+ + + + | Aortic | 1.7 | cm2 | [facility] | | | Valve Area | | | | | | by | | | | | | Continuity | | | | | | VTI | | | | | + +--------+ + + + | MV Area by | 6.54 | cm2 | [facility] | | | P 1/2 | | | | | | method | | | | | + +--------+ + + + | IVRT | 140.89 | msec | [facility] | | + +--------+ + + + | LVOT | 2.06 | cm | [facility] | | | diameter | | | | | + +--------+ + + + | LVOT peak | 85.26 | cm/s | [facility] | | | jose carlos | | | | | + +--------+ + + + | LVOT peak | 21.74 | cm | [facility] | | | VTI | | | | | + +--------+ + + + | AV peak jose carlos | 200 | cm/s | [facility] | | + +--------+ + + + | AV VTI | 42.55 | cm | [facility] | | + +--------+ + + + | AV peak | 16.00 | mmHg | [facility] | | | gradient | | | | | + +--------+ + + + | MV peak | 1.65 | mmHg | [facility] | | | gradient | | | | | + +--------+ + + + | MV Pressure | 33.65 | msec | [facility] | | | 1/2 time | | | | | + +--------+ + + + | LA Volume | 61 | mL/m2 | [facility] | | | Index | | | | | + +--------+ + + + | AV LVOT | 2.91 | mmHg | [facility] | | | Peak | | | | | | Gradient | | | | | + +--------+ + + + | AV LVOT | 1.35 | mmHg | [facility] | | | Mean | | | | | | Gradient | | | | | + +--------+ + + + | TR Peak | 39 | mmHg | [facility] | | | Gradient | | | | | + +--------+ + + + | TR Velocity | 310.44 | cm | [facility] | | + +--------+ + + + | LV | 9.48 | cm | [facility] | | | Diastolic | | | | | | Length 4C | | | | | + +--------+ + + + | LV Systolic | 19.3 | cm2 | [facility] | | | Area PSAX | | | | | + +--------+ + + + | LV | 57 | % | [facility] | | | Schmidt's | | | | | | Biplane EF | | | | | + +--------+ + + + | AV | 103.6 | msec | [facility] | | | Acceleratio | | | | | | n Time | | | | | + +--------+ + + + | LV ED | 99.92 | ml | [facility] | | | Volume | | | | | | (Schmidt's) | | | | | + +--------+ + + + | LV ED | 54 | ml/m2 | [facility] | | | Volume | | | | | | Index | | | | | + +--------+ + + + | LV ES | 42.16 | ml | [facility] | | | Volume | | | | | + +--------+ + + + | LVOT Mean | 53.54 | cm/s | [facility] | | | Velocity | | | | | + +--------+ + + + | MV A' | 15.35 | cm/s | [facility] | | | Lateral | | | | | | Velocity | | | | | + +--------+ + + + | MV E' | 5.67 | cm/s | [facility] | | | Lateral | | | | | | Velocity | | | | | + +--------+ + + + | MV A' | 8.02 | cm/s | [facility] | | | Septal | | | | | | Velocity | | | | | + +--------+ + + + | MV E' | 5 | cm/s | [facility] | | | Septal | | | | | | Velocity | | | | | + +--------+ + + + | MV | 553.02 | cm/s2 | [facility] | | | Deceleratio | | | | | | n [place] | | | | | + +--------+ + + + | MV | 116.03 | msec | [facility] | | | Deceleratio | | | | | | n Time | | | | | + +--------+ + + + | MV E/A | 0.52 | | [facility] | | | Ratio | | | | | + +--------+ + + + | MV Peak | 124.06 | cm/s | [facility] | | | A-Wave | | | | | + +--------+ + + + | MV Peak | 64.17 | cm/s | [facility] | | | E-Wave | | | | | + +--------+ + + + | AV Mean | 135.11 | cm/s | [facility] | | | Velocity | | | | | + +--------+ + + + | LA/Aorta | 1.47 | | [facility] | | | Ratio | | | | | + +--------+ + + + | LA Area | 27.65 | cm2 | [facility] | | + +--------+ + + + | LA Systolic | 16.15 | mmHg | [facility] | | | Pressure | | | | | + +--------+ + + + | MV E/E | 12.83 | | [facility] | | | SEPTAL | | | | | + +--------+ + + + | MV E/E | 11.32 | | [facility] | | | LATERAL | | | | | + +--------+ + + + | LA Major | 0.4255 | cm | [facility] | | + +--------+ + + + | LV ES | 23 | ml/m2 | [facility] | | | Volume | | | | | | Index | | | | | + +--------+ + + + | LV Area | 30.57 | cm2 | [facility] | | | Diastolic | | | | | + +--------+ + + + | Aortic Root | 2.93 | cm | [facility] | | | Diameter | | | | | + +--------+ + + + | IVS | 1.17 | cm | [facility] | | | Diastolic | | | | | | Thickness | | | | | | MM | | | | | + +--------+ + + + | LVPW | 1.2 | cm | [facility] | | | Diastolic | | | | | | Thickness | | | | | | MM | | | | | + +--------+ + + + | IVS | 1.57 | cm | [facility] | | | Systolic | | | | | | Thickness | | | | | | MM | | | | | + +--------+ + + + | LV Systolic | 4 | cm | [facility] | | | Diameter | | | | | | MM | | | | | + +--------+ + + + | LVPW | 1.27 | cm | [facility] | | | Systolic | | | | | | Thickness | | | | | | MM | | | | | + +--------+ + + + | LA Systolic | 4.3 | cm | [facility] | | | Diameter | | | | | | MM | | | | | + +--------+ + + + | TAPSE | 1.4 | cm | [facility] | | + +--------+ + + + | LVEF-TTE | 55 | % | [facility] | | | TRANSTHORAC | | | | | | IC ECHO | | | | | + +--------+ + + + + + | Specimen | + + | | + + + + -+ | Narrative | Performed At | + + -+ | 1. Mild | [facility] | | biatrial dilatation.2. Normal left ventricular size with a mild | | | concentric left ventricular hypertrophy. Left ventricular systolic | | | function is preserved. LVEF is 55%.3. Grade 1 left ventricular | | | diastolic dysfunction.4. Evidence of a normally functioning #29 | | | Tooole Sapient transcatheter aortic valve replacement. Peak | | | velocity across aortic valve is 2 m/s with a peak gradient of 16 | | | mmHg. Valve seated solidly. There is a trace transvalvular | | | aortic valve insufficiency.5. 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 There is a mild mitral valve | | | regurgitation.6. Mild tricuspid valve regurgitation.7. Mild | | | pulmonary hypertension with a peak systolic pressure of 45-50 | | | mmHg.8. Not well-visualized IVC.9. When compared to | | | echocardiography on 07/24/17, no significant changes. | | |8. Not well-visualized IVC. | | |9. When compared to echocardiography on 07/24/17, no significant changes. | | + + -+ + +---------+ + + | Performing | Address | City/State/Zipcode | Phone Number | | Organization | | | | + +---------+ + + | [facility] | | | | + +---------+ + + documented in this encounter Visit Diagnoses + + | Diagnosis | + + | S/p TAVR (transcatheter aortic valve replacement), bioprosthetic | + + documented in this encounter"
--- OUTSIDE RECORDS SUMMARY | ~2018-08-23 | XMS | Encounter Summary ---
Demographics + + + | Address | [address] | | | [place] [address] | + + + | Home Phone | | + + + | Preferred Language | Unknown | + + + | Marital Status | | + + + | Confucianism Affiliation | [id number] | + + + | Race | Unknown | + + + | Ethnic Group | Unknown | + + + Author + + + | Author | [facility] | | | and [place] | + + + | Organization | [facility] | | | and [place] | + + + | Address | Unknown | + + + | Phone | Unavailable | + + + Support + + + + + | Name | Relationship | Address | Phone | + + + + + | Yuri Ghotra | ECON | [address] | | | | | [place] | | | | | [phone] | | + + + + + | Fabricio Ghotra | ECON | Unknown | | + + + + + Care Team Providers + +------+ + | Care Ground Surveillance Systems Operator Name | Role | Phone | + +------+ + | Dano Chacon MD | PCP | | + +------+ + Reason for Visit + + + | Reason | Comments | + + + | Device Check | | | (In-office) | | + + + | Follow-up | | + + + | Coronary Artery | | | Disease | | + + + | Hypotension | | + + + | Hyperlipidemia | | + + + Encounter Details +--------+---------+ + + + | Date | Type | Department | Care Team | Description | +--------+---------+ + + + | 05/28/ | Office | [facility] | Taylor Heard, | Sinoatrial node | | 2019 | Visit | CARDIOLOGY [address] | VISUALLY IMPAIRED TEACHER [address] | dysfunction (HCC) | | | | [address], | [place], [place] | with BRADYCARDIA | | | | [place] [address] | [id number] | (Primary Dx); | | | | [phone] | | Coronary artery | | | | | | disease involving | | | | | | eagle coronary | | | | | | artery of eagle | | | | | | heart without angina | | | | | | pectoris; Essential | | | | | | hypertension; | | | | | | Hyperlipidemia, | | | | | | mixed; Idiopathic | | | | | | hypotension; | | | | | | Nonrheumatic aortic | | | | | | valve stenosis; | | | | | | Cardiomyopathy, | | | | | | unspecified type | | | | | | ([facility]); Chronic | | | | | | combined systolic | | | | | | and diastolic CHF | | | | | | (congestive heart | | | | | | failure) ([facility]); | | | | | | PACEMAKER, | | | | | | PERMANENT, 03/11/11, | | | | | | [employer] - SUW; | | | | | | Pacemaker | | | | | | reprogramming/check | | | | | | DO NOT DELETE | +--------+---------+ + + + Social History + +-------+ [...] + + documented as of this encounter Last Filed Vital Signs + + + + | Vital Sign | Reading | Time Taken | + + + + | Blood Pressure | 116/52 | 05/28/2018 1111 PST | + + + + | Pulse | 80 | 05/28/2018 1111 PST | + + + + | Temperature | - | - | + + + + | Respiratory Rate | 20 | 05/28/2018 1111 PST | + + + + | Oxygen Saturation | - | - | + + + + | Inhaled Oxygen | - | - | | Concentration | | | + + + + | Weight | 73.9 kg (162 lb 14.7 | 05/28/2018 1111 PST | | | oz) | | + + + + | Height | 170.2 cm (5' 7") | 05/28/2018 1111 PST | + + + + | Body Mass Index | 25.52 | 05/28/2018 1111 PST | + + + + documented in this encounter Patient Instructions Patient Instructions Lissa Hernandez, Bill Of Lading Clerk - 05/28/2018 11:15 PST 1. You will stop the atorvastatin for two weeks to see if the stiffness and leg weakness s tops and it is the medication side effects. After two weeks and the stiffness comes and goes then you can go back on the atorvastatin because it was not the medication that was causing the problem and it is your arthritis. If the symptoms are resolved call the office we will changed the medication. 2. You can stop the clopidogrel and you can keep taken the aspirin 81 mg daily. 3. Keep an eye on your blood pressure once a week or when your are lightheadedness. 4. Please follow up in 6 months for office visit and device interrogation, or sooner with concerns. documented in this encounter Progress Notes Taylor Heard ARNP - 05/28/2018 1115 PSTFormatting of this note might be different from lavern chowdhury. PATIENT NAME: Fabricio Ghotra : 1940: AGE: 77 y.o. PRIMARY CARE: Dano Chacon MD CC: OUTPATIENT FOLLOW UP VISIT Date of Service: 05/28/2018 HISTORY OF PRESENT ILLNESS: Fabricio Ghotra is a 77 y.o. 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 He is being seen today for follow up aortic valve stenosis, status post TAVR and device interrogation. He was last seen 10/17/2017 at which time, he was advised to add more fluid via his G-tube to help support his blood pressure. He can stop the clopidogrel after 12/30/17, but has actunawaf lly remained on it. Since that time, he saw his PCP on 05/02/2018 for an office visit for a follow up of Hyperl ipidemia/ transaminates. His LFTs were elevated and etiology was not clear. He denies abdom inal pain, nausea or vomiting. His PEG tube replacement procedure done by Dr. Moreau. He was again recommended to increase his water supplementation. He should start taking 250 mL of fr ee water in between meals. His hyperlipidemia is being control with atorvastatin and his lip id profile is satisfactory and it will be continue to monitor. He is on Vitamin D, B 12 and Iron to help with the deficiencies. Patient notes today that he has had 2 episodes of aspira tion pneumonia this year, so he really only takes in his morning coffee and donut, and the r est is in feedings, but he reports "there's only so much room in my stomach". He has had a fair energy level. He tries to stay active. He goes the [employer] and walks around the gym and does strengthening exercises. He notes that his field reimbursement manager stopped the metho trexate, and he has noted more soreness, and feels his legs are weaker. He enjoys watch TV, wood work in his spare time. He chronically feels tightness in his chest when he first starts walking, but then it resol ves after a minute or so as long as he keeps moving. This has been unchanged. He has had sh ortness of breath with exertion of of walking or going up stairs and it takes a few minutes to recover. He has lightheadedness with when he changes position from sitting to standing. He has not noticed palpitations. He has not had leg swelling. He sleeps on 1 pillow at [facility] without any shortness of breath. He sleeps with CPAP machine in place nightly. MEDICAL, SURGICAL, AND PERSONAL HISTORY Past Medical, Surgical, Family, and Social History are reviewed in EPIC. CURRENT PROBLEMS Patient Active Problem List Diagnosis SPINAL STENOSIS, LUMBAR CERVICAL SPONDYLOSIS WITHOUT MYELOPATHY Hypothyroidism CERVICAL RADICULOPATHY POLYP-COLON Sinoatrial node dysfunction with BRADYCARDIA PACEMAKER, PERMANENT, 03/11/11, [employer] - SUW Essential hypertension Hyperlipidemia, mixed JULIANNE - Uses CPAP PHx of colonic polyps Depression Rheumatoid aortitis Coronary artery disease involving eagle coronary artery of eagle heart without angina pectoris Mason's palsy Malignant neoplasm of tongue DYSPHAGIA NEC Difficult airway for intubation Pacemaker reprogramming/check DO NOT DELETE Nonrheumatic aortic valve stenosis Bilateral inguinal hernia Difficult intubation Beta Tamar Use Carcinoma of base of tongue Rheumatoid arthritis Osteoarthritis of hand Oropharyngeal dysphagia Dysphagia Periodic limb movements of sleep Cardiomyopathy 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 failure) Chronic pulmonary aspiration Gram-positive cocci bacteremia Elevated troponin Severe protein-calorie malnutrition Diarrhea, unspecified type C. difficile colitis Acute bacterial endocarditis History of SBE (subacute bacterial endocarditis) Idiopathic hypotension CURRENT MEDICATIONS Current Outpatient Prescriptions Medication Sig Dispense Refill acetaminophen (TYLENOL) 325 mg tablet Take 2 tablets via G-tube every 4 hours as needed for Pain or Fever. 120 tablet 0 aspirin 81 mg chewable tablet Take 1 tablet via G-tube Daily. 30 tablet 0 atorvaSTATin (LIPITOR) 40 mg tablet Take 1 tablet via G-tube nightly. 90 tablet 3 Cholecalciferol (VITAMIN D-3) 2000 units CAPS Take 1 capsule via G-tube Daily. 30 each 0 citalopram (CELEXA) 20 mg tablet Take 1 tablet via G-tube Daily. 30 tablet 0 clopidogrel (PLAVIX) 75 mg tablet Take 1 tablet via G-tube Daily. 90 tablet 1 ferrous sulfate (IRON) 325 (65 Fe) MG TABS Take 1 tablet by mouth Daily. ferrous sulfate 325 mg tablet Take 1 tablet via G-tube Daily. 30 tablet 0 hydroxychloroquine (PLAQUENIL) 200 mg tablet Take 200 mg by mouth Daily. levothyroxine (SYNTHROID) 50 mcg tablet Take 1 tablet via G-tube Daily. 30 tablet 0 methotrexate 2.5 mg tablet Taking 3 tablets by mouth once weekly - friday NITROSTAT 0.[address] 1 tablet under the tongue every 5 minutes for up to 3 doses as needed for chest pain call 911 if pain persists. thiamine (VITAMIN B-1) 100 mg tablet Take 1 tablet via G-tube 3 times daily. 90 tablet 0 tocopherol (VITAMIN E) 400 units capsule Take 1 capsule via G-tube Daily. 30 capsule 0 UNABLE TO FIND Med Name: Resmed AirSense 10 autoset CPAP: 4-15cm No current facility-administered medications for this visit. ALLERGIES Allergies Allergen Reactions Oxycodone Hcl Other (See Comments) aggression Lisinopril-Hydrochlorothiazide Other (See Comments) Dizziness ROS Review of Systems Constitutional: Positive for malaise/fatigue. Negative for chills and fever. HENT: Positive for tinnitus. Negative for hearing loss and nosebleeds. Eyes: Negative for blurred vision and double vision. Respiratory: Positive for shortness of breath. Cardiovascular: Negative for chest pain, palpitations and leg swelling. Gastrointestinal: Positive for abdominal pain. Negative for blood in stool, constipation, d iarrhea, heartburn, nausea and vomiting. Genitourinary: Positive for frequency and urgency. Negative for hematuria. Musculoskeletal: Positive for back pain, joint pain, myalgias and neck pain. Negative for f alls. Skin: Negative for itching and rash. Neurological: Positive for weakness. Negative for dizziness, tingling, tremors, seizures an d loss of consciousness. Positive for lightheadedness Endo/Heme/Allergies: Bruises/bleeds easily. Psychiatric/Behavioral: Negative for memory loss. The patient is nervous/anxious. The patie nt does not have insomnia. OBJECTIVE: PHYSICAL EXAM BP 116/52 | Pulse 80 | Resp 20 | Ht 1.702 m (5' 7") | Wt 73.9 kg (162 lb 14.7 oz) | BM I 25.52 kg/m Physical Exam Constitutional: He is oriented to person, place, and time. He appears well-developed and we ll-nourished. Elderly male in no acute distress, accompanied by and son Neck: Normal carotid pulses and no JVD present. Carotid bruit is not present. Cardiovascular: Normal rate, regular rhythm, S1 normal, S2 normal and intact distal pulses. PMI is not displaced. Exam reveals no gallop and no friction rub. Murmur heard. Holosystolic murmur is present with a grade of 1/6 at the apex Pulses: Carotid pulses are 2+ on the right side, and 2+ on the left side. Posterior tibial pulses are 1+ on the right side, and 1+ on the left side. Pulmonary/Chest: Effort normal. No accessory muscle usage. No respiratory distress. He has no wheezes. He has no rhonchi. He has no rales. Abdominal: Soft. Normal appearance and normal aorta. He exhibits no abdominal bruit. There is no hepatosplenomegaly. There is no tenderness. Musculoskeletal: He exhibits no edema. Neurological: He is alert and oriented to person, place, and time. Gait normal. Skin: Skin is warm and dry. No cyanosis. Nails show no clubbing. Psychiatric: He has a normal mood and affect. His mood appears not anxious. His speech is s lurred (slightly due to structural changes after his surgery for esophageal cancer). He does not exhibit a depressed mood. ECG: I personally independently reviewed ECG tracing during this visit (interpreted and benja led by another provider): Results for orders placed or performed during the hospital encounter of 07/24/17 ECG 12 lead Result Value Ref Range INTERPRETATION TEXT Atrial-paced rhythm Left bundle branch block Abnormal ECG When compared with ECG of 17-JUL-2017 08:54, Previous ECG has undetermined rhythm, needs review Confirmed by GONZALO JAVIER MD ([id number]) on 07/25/2017 6:45:53 AM Which is compared to today's ECG 05/28/2018: Atrial-paced rhythm left bundle branch block, 72 beats per minute. LAB RESULTS reviewed during visit today primarily from [facility]: LIPID Lab Results Component Value Date TRIG 61 10/05/2012 HDL 37.5 10/05/2012 LDL 77 10/05/2012 CHOLHDL 3.0 02/13/2016 LDLEX 87 04/30/2018 HDLEX 45.5 04/30/2018 TRIGEX 48 04/30/2018 CHOLEX 142 04/30/2018 CHEMISTRY Lab Results Component Value Date GLU 119 (H) 08/01/2017 GLUEX 130 (A) 08/12/2017 NA 138 08/01/2017 NAEX 137 08/12/2017 K 3.6 08/01/2017 KEX 4.4 08/12/2017 CL 105 08/01/2017 CLEX 98 08/12/2017 CO2 28 08/01/2017 CO2EX 29 08/12/2017 CALCIUM 8.4 (L) 08/01/2017 ALKPHOS 49 07/25/2017 AST 15 07/25/2017 ASTEX 22 08/12/2017 ALT 9 (L) 07/25/2017 ALTEX 17 08/12/2017 BILITOT 0.7 07/25/2017 CREA 1.25 08/01/2017 BUN 21 08/01/2017 EGFR 56 (L) 08/01/2017 EGFREX 59 (A) 08/12/2017 CREEX 1.20 (A) 08/12/2017 HEMATOLOGY Lab Results Component Value Date WBC 4.6 07/25/2017 WBCEX 6.3 08/12/2017 HGB 10.6 (L) 07/25/2017 HGBEX 9.1 (A) 08/12/2017 HCT 31.8 (L) 07/25/2017 HCTEX 27.2 (A) 08/12/2017 PLT 179 07/25/2017 PLTEX 163 10/15/2016 Lab Results Component Value Date TSHEX 1.51 02/12/2016 BNP 296 (H) 07/01/2017 I reviewed records from PCP for office visit on 05/02/2018 which is summarized in the HPI. RESULTS- I reviewed reports from [facility]: Echocardiogram on 05/28/2018 shows, mild biatrial dilatation, normal left ventricular size w ith a mild concentric left ventricular hypertrophy, left ventricular systolic function is pr eserved, LVEF is 55%, grade 1 left ventricular diastolic dysfunction, evidence of a normally functioning #29 Otoole Sapient transcatheter aortic valve replacement, peak velocity acros s aortic valve is 2 m/s with a peak gradient of 16 mmHg, valve seated solidly, there is a tr jensen transvalvular aortic valve insufficiency, mildly thickened and calcified mitral valve coburn ggesting myxoma change, there is a mild mitral valve regurgitation, mild tricuspid valve reg urgitation, mild pulmonary hypertension with a peak systolic pressure of 45-50 mmHg, not wel l-visualized IVC, when compared to echocardiography on 07/24/17, no significant changes, by Francia Garcia MD. DEVICE INTERROGATION Device interrogation is ordered and performed during this visit. Refer to scanned P[employer]art documentation and device PDF in NOTIK for interrogation (with programming changes) performed during visit today. Events: None Heart rate histogram shows fair distribution. Atrial pacing 91%, Ventricular pacing 1.8%. There is a normal and stable device function. Estimated remaining battery longevity is 4 years. Current underlying rhythm: sinus bradycardia with rate of 54 beats per minute. Single PVCs 152,722. PVC runs 174. Above data and testing is reviewed this visit; testing below is historical data unless othe rwise specified. ASSESSMENT: 1. Aortic valve stenosis, status post TAVR 07/02/17: A. First noted to be mild to moderate on echocardiogram 01/2014. Moderate on ec hocardiogram 01/2015 and again 04/17/17. Associated with decreased ejection fraction and hypo tension. B. Status post TAVR with Otoole valve on 07/02/[address] Lerma at [facility]. C. Limited echocardiogram 07/03/17 at [facility] show s left ventricle is normal in size with mild concentric left ventricular hypertrophy, LVEF 4 5%, mitral valve appears normal in structure and function, a 29 mm Edward C been TAVR biopro sthesis appears well-positioned and firmly seated in the aortic annulus. No perivalvular ao rtic valve insufficiency is detected. The aortic valve mean systolic gradient was measured at 7 mmHg. D. Echocardiogram 07/24/17 shows normal left ventricular cavity size. There is s eptal dyskinesis with otherwise normal regional wall motion and mild concentric LVH. Ejectio n fraction is visually estimated at 55-60%. Aortic valve is echodense suggestive of prior re placement with borderline to mild functional stenosis without insufficiency. Peak velocity i s measured at 2 m/s. Left atrium is mildly enlarged. E. Echocardiogram limited 07/25/17 Normally functioning 29 bioprosthetic aortic valve. No evidence of mass or vegetation noted. No obvious vegetations on eagle valves. F. Echocardiogram on 05/28/2018 shows, mild biatrial dilatation, normal left ventricular si ze with a mild concentric left ventricular hypertrophy, left ventricular systolic function i s preserved, LVEF is 55%, grade 1 left ventricular diastolic dysfunction, evidence of a norm ally functioning #29 Otoole Sapient transcatheter aortic valve replacement, peak velocity a cross aortic valve is 2 m/s with a peak gradient of 16 mmHg, valve seated solidly, there is a trace transvalvular aortic valve insufficiency, mildly thickened and calcified mitral valv e suggesting myxoma change, there is a mild mitral valve regurgitation, mild tricuspid valve regurgitation, mild pulmonary hypertension with a peak systolic pressure of 45-50 mmHg, not well-visualized IVC, when compared to echocardiography on 07/24/17, no significant changes, by Savanna Garcia MD. G. Today, 05/28/2018, he is asymptomatic. He does not require further evaluation or treatment at this time. His echocardiogram looks good and no significant changes. Went o gomez a the [place] Cardiomyopathy Questionnaire with patient and will scan in EMR. 2. Coronary artery disease, cardiomyopathy with recovered ejection fraction: A. Status post abnormal treadmill stress test 02/01/[address] depressi on in V3 and V4 associated with chest pain. B. Status post left heart catheterization by Dr. Garcia at [facility] on 02/01/10 showing 90% stenosis of the proximal RCA with luminal irregularities mid and proximal LAD and circumflex. C. Status post successful percutaneous intervention with stenting of the osti um of the RCA with Promus 4 X 15 mm stent. Recommended to be on Plavix for one year, on 05/14, by Dr. Obrien, at [facility]. D. Echocardiogram 01/24/14 shows LVEF is 55-60%. Mild to moderate aortic steno sis. When compared to echo cardiology on 08/12/11, aortic valve stenosis is a new finding. E. Coronary artery bypass grafting x 2: Left internal mammary to left anterior descending, saphenous vein graft to right posterior descending artery with endoscopic vein harvest from [facility] on 01/26/2014. F. Nuclear Stress Test 01/12/15 The Lexiscan EKG is non diagnostic due to unde rlying DDD paced rhythm. Normal Lexiscan Tetrofosmin myocardial perfusion imaging study. Nor mal left ventricular size, wall thickness and motion. Left ventricular systolic function is preserved. Left ventricular ejection fraction is 60%. G. Echocardiogram 01/10/15 Normal left ventricular size, wall thickness and mo tion. Preserved left ventricular systolic function. LVEF is 55-60%. Grade 1 left ventricular diastolic dysfunction. H. Echocardiogram 04/17/17 Normal left ventricular size and wall thickness. The re is a moderate global hypokinesis of the left ventricle. Overall, left ventricular systoli c function is moderately decreased. LVEF is 40-45%. Evidence of a sigmoid septum. Bouncing s eptum. Mildly thickened and calcified trileaflet aortic valve with moderate calcific aortic valve stenosis. There is a mild aortic valve insufficiency. Normal right-sided pressure. Not well-visualized IVC. When compared to echocardiography on 01/10/15, left ventricular dysfunct ion is significantly reduced. I. Left heart catheterization 05/07/17 shows high grade 80-85% stenosis at the pr oximal portion of the LAD, occluded ostial stent of the dominant RCA. By-pass angiography: L JAYLON to LAD is Opened, SVG to PDA is opened. He was recommended risk factor modification and medical management. J. Today, 05/28/2018, he has chronic chest tightness when he first starts exerci sing, and it continues to resolve when he is about a minute into exercise and does not recur . This has been unchanged ever since his esophageal surgery. He is on a medical regimen with dual antiplatelet therapy and statin. He no longer needs the clopidogrel, and is advised th at he can stop it and just take the low dose aspirin. He has not been able to take beta-bloc ker or JENSEN-I due to his low blood pressure. There are no signs or symptoms of overt congestive heart failure, and his physical exam sh ows no significant fluid retention. He is in class II- Symptoms with moderate exertion of t he [place] [employer] functional class. Heart failure stage C-diagnosed heart failur e with symptoms. 3. Hypotension: A. Today, 05/28/2018, His blood pressure looks good and he is not having lighth eadedness episodes. He will keep an eye on his blood pressure. Typically his low readings ar e more prevalent during the summer. 4. Sinoatrial node dysfunction with Symptomatic bradycardia. A. Patient presented 03/05/11 with increasing dizziness and lightheadedness wi th fatigue. It was noted that his heart rate has been running slow at 50 beats per minute. Of note, the patient was on no AV-blocking agent. B. Status post Medtronic dual-chamber permanent pacemaker implantation [address] Garcia [facility]. C. Today, 05/28/2018, his device interrogation shows normal and stable device fu nction as listed above. He does not have remote monitoring and requires office visits to [facility] ck device every 6 months. He is not have any abnormal heart function and he his ECG looks go od today. 5. Hyperlipidemia, mixed. A. Today, 05/28/2018, he remains on atorvastatin. He will stop his atorvastatin for 2 weeks to see if his muscle aching and leg weakness improve. 6. Obstructive sleep apnea: A . Today, 05/28/2018, He use his CPAP nightly. He does not sleep with elevate d head and jacob any aspiration due to his feeding tube. 7. Diabetes. Not otherwise addressed today 05/28/2018. 8. Hypothyroidism. Not otherwise addressed today 05/28/2018. 9. Depression. Not otherwise addressed today 05/28/2018. 10. Food aspiration. Not otherwise addressed today 05/28/2018. A. 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 He has had ongoing dysphasia and dysphagia. B. He has G-tube placed 07/2017. PLAN: INSTRUCTIONS TO PATIENT: 1. He will stop the atorvastatin for two weeks to see if the stiffness and leg weakness st ops and it is the medication side effects. After two weeks and the stiffness comes and goes then he can go back on the atorvastatin because it was not the medication that was causing t he problem and it is his arthritis. If the symptoms are resolved call the office we will ashanti nged the medication. (Would plan to try rosuvastatin 20 mg) 2. He can stop the clopidogrel and He can keep taking the aspirin 81 mg daily. 3. Keep an eye on his blood pressure once a week or when he has lightheadedness. 4. He will follow up in 6 months for office visit and device interrogation, or sooner with concerns. Lissa Staton Medical Assistant am acting as a scribe on behalf of, and in the pres ence of NEGRITA Ruiz. - David Guillen 05/28/2018 11:14 Taylor Staton ARNP, personally performed the services described in this documentation, as scribed in my presence and it is both accurate and complete. NEGRITA Ruiz 9 Portions of this chart may have been created with [id number] voice recognition software. Occasi onal wrong-word or sound-alike substitutions may have occurred due to the inherent sanchez itations of voice recognition software. Please read the chart carefully and recognize, using context, where these substitutions have occurred. documented in this encounter Plan of Treatment +--------+---------+ + + + | Date | Type | Specialty | Care Team | Description | +--------+---------+ + + + | 09/01/ | Office | Sleep Medicine | Moris Hassan | | 2018 | Visit | | MD Jaison Pascual [place] | | | | | | [facility] | | | | | | [place] [address] | | | | | | [phone] | | | | | | | | +--------+---------+ + + + | 11/26/ | Office | Cardiology | Taylor Heard, | | | 2018 | Visit | | [facility] | | | | | | [address] [place] [place] | | | | | | [phone] | | | | | | | | +--------+---------+ + + + documented as of this encounter Procedures + +--------+ + + + | Procedure Name | Priori | Date/Time | Associated Diagnosis | Comments | | | ty | | | | + +--------+ + + + | ECG 12 LEAD | Routin | 05/28/2018 | Essential | Results for this | | | e | 11:27 PST | hypertension | procedure are in the | | | | | | results section. | + +--------+ + + + | DEVICE INTERROGATION | Routin | 05/28/2018 | Sinoatrial node | Results for this | | | e | 11:15 PST | dysfunction (HCC) | procedure are in [...] + + documented in this encounter Results ECG 12 lead (05/28/2018 11:27 PST) + + + + + + | Component | Value | Ref Range | Performed | Pathologist | | | | | At | Signature | + + + + + + | VENTRICULAR | 72 | BPM | [facility] | | | RATE EKG | | | | | + + + + + + | ATRIAL RATE | 416 | BPM | [facility] | | + + + + + + | P-R | 206 | ms | [facility] | | | INTERVAL | | | | | + + + + + + | QRS | 166 | ms | [facility] | | | DURATION | | | | | + + + + + + | Q-T | 476 | ms | [facility] | | | INTERVAL | | | | | + + + + + + | Q-T | 521 | ms | [facility] | | | INTERVAL | | | | | | (CORRECTED) | | | | | + + + + + + | QRS AXIS | 21 | degrees | [facility] | | + + + + + + | T AXIS | 180 | degrees | [facility] | | + + + + + + | INTERPRETAT | Atrial-paced rhythmLeft | | [facility] | | | ION TEXT | bundle branch | | | | | | blockAbnormal ECGWhen | | | | | | compared with ECG of | | | | | | 24-JUL-2017 15:38,No | | | | | | significant change was | | | | | | foundConfirmed by | | | | | | SAVANNA GARCIA MD | | | | | | ([id number]) on 05/28/2018 | | | | | | 4:57:27 PM | | | | + + + + + + + + | Specimen | + + | | + + + + + | Narrative | Performed At | + + + | | | + + + + +---------+ + + | Performing | Address | City/State/Zipcode | Phone Number | | Organization | | | | + +---------+ + + | [facility] | | | | + +---------+ + + Device Interrogation (05/28/2018 11:15 PST) + + + | Narrative | Performed At | + + + | [facility], | [facility] | | VISUALLY IMPAIRED TEACHER 05/28/2018 12:40 PATIENT NAME: Fabricio Omalley | | | [place] : 1940: AGE: 77 y.o. Device | | | In-office Evaluation Report 05/28/2018 Reason for evaluation: | | | routineIndication for device:I49.5 Patient was seated and device was | | | interrogated (with programming changes made). Test was performed | | | and interpreted by me. Device parameters, battery status, percentages | | | pacing and significant arrhythmias were reviewed. Heart rate | | | histograms were assessed for adequate heart rate response and any | | | alerts reviewed. Appropriate lead impedance testing was performed. | | | Pacing impedances were reviewed for any significant changes. Sensing | | | tests were performed by decreasing LRL. Adequacy of pacing thresholds | | | were tested by increasing LRL for each lead and recorded for loss of | | | capture. Final outputs were assessed for adequate safety margins. | | | Summary of findings:Events: NoneHeart rate histogram shows fair | | | distribution. Atrial pacing 91%, Ventricular pacing 1.8%.There is a | | | normal and stable device function.Estimated remaining battery | | | longevity is 4 years.Current underlying rhythm: sinus bradycardia with | | | rate of 54 beats per minute. Single PVCs 152,722. PVC runs 174. | | | Please see the scanned [facility] report and device PDF for further | | | details. | | |tests were performed by decreasing LRL. Adequacy of pacing | | |thresholds were tested by increasing LRL for each lead and | | |recorded for loss of capture. Final outputs were assessed for | | |adequate safety margins. | | | | | |Summary of findings: | | |Events: None | | |Heart rate histogram shows fair distribution. Atrial pacing 91%, | | |Ventricular pacing 1.8%. | | |There is a normal and stable device function. | | |Estimated remaining battery longevity is 4 years. | | |Current underlying rhythm: sinus bradycardia with rate of 54 | | |beats per minute. | | |Single PVCs 152,722. PVC runs 174. | | | | | |Please see the scanned [facility] report and device PDF for further | | |details. | | + + + + +---------+ + + | Performing | Address | City/State/Zipcode | Phone Number | | Organization | | | | + +---------+ + + | [facility] | | | | + +---------+ + + documented in this encounter Visit Diagnoses + + | Diagnosis | + + | Sinoatrial node dysfunction (HCC) with BRADYCARDIA - Primary Sinoatrial node | | dysfunction | + + | Coronary artery disease involving eagle coronary artery of eagle heart without | | angina pectoris | + + | Essential hypertension Unspecified essential hypertension | + + | Hyperlipidemia, mixed Mixed hyperlipidemia | + + | Idiopathic hypotension Hypotension, unspecified | + + | Nonrheumatic aortic valve stenosis Aortic valve disorders | + + | Cardiomyopathy, unspecified type (HCC) | + + | 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 failure) (HCC) | + + | PACEMAKER, PERMANENT, 03/11/11, MEDMELINDA - FARZANA Cardiac pacemaker in situ | + + | Pacemaker reprogramming/check DO NOT DELETE Fitting and adjustment of cardiac | | pacemaker | + + documented in this encounter
--- OUTSIDE RECORDS SUMMARY | ~2018-08-23 | XMS | Encounter Summary ---
Demographics + + + | Address | [address] | | | [place] [address] | + + + | Home Phone | | + + + | Preferred Language | Unknown | + + + | Marital Status | | + + + | Orthodox Affiliation | 1013 | + + + | Race | Unknown | + + + | Ethnic Group | Unknown | + + + Author + + + | Author | [facility] | | | and [place] | + + + | Organization | [facility] | | | and [place] | + + + | Address | Unknown | + + + | Phone | Unavailable | + + + Support + + + + + | Name | Relationship | Address | Phone | + + + + + | Yuri Ghotra | ECON | [address] | | | | | [place] | | | | | [phone] | | + + + + + | Fabricio Ghotra | ECON | Unknown | | + + + + + Care Team Providers + +------+ + | Care Wafer Cutter Name | Role | Phone | + [...] | Visit | CARDIOLOGY [address] | COMPUTER SUPPORT SPECIALIST INSTRUCTOR [address] | dysfunction (HCC) | | | | [place], | [place], [place] | with BRADYCARDIA | | | | [place] [address] | [address] | (Primary Dx); | | | | [phone] | | Coronary artery | | | | | | disease involving | | | | | | eastern cherokee coronary | | | | | | artery of eastern cherokee | | | | | | heart [...] type | | | | | | ([facility]); Chronic | | | | | | combined systolic | | | | | | and diastolic CHF | | | | | | (congestive heart | | | | | | failure) ([facility]); | | | | | | PACEMAKER, [...] encounter Patient Instructions Patient Instructions Lissa Hernandez, Equalizer Operator - 05/28/2018 11:15 PST 1. You will [...] does strengthening exercises. He notes that his barber instructor stopped the metho trexate, and he has [...] swelling. He sleeps on 1 pillow at [facility] without any shortness of breath. He sleeps [...] Depression Rheumatoid aortitis Coronary artery disease involving eastern che[place] coronary artery of eastern [place] heart without angina pectoris Mason's palsy Malignant [...] needs review Confirmed by GONZALO JAVIER MD ([id number]) on 07/25/2017 6:45:53 AM Which is compared to today's ECG 05/28/2018: Atrial-paced rhythm left bundle branch block, 72 beats per minute. LAB RESULTS reviewed during visit today primarily from [facility]: LIPID Lab Results Component Value Date TRIG [...] the HPI. RESULTS- I reviewed reports from [facility]: Echocardiogram on 05/28/2018 shows, mild biatrial dilatation, [...] scanned [facility] documentation and device PDF in [employer] for interrogation (with programming changes) performed during [...] valve on 07/02/[address] Lerma at [facility]. C. Limited echocardiogram 07/03/17 at [facility] show s left ventricle is normal [...] or vegetation noted. No obvious vegetations on eastern cherokee valves. F. Echocardiogram on 05/28/2018 shows, mild [...] significant changes. Went o gomez a the [place] Cardiomyopathy Questionnaire with patient and will scan in EMR. 2. Coronary artery disease, cardiomyopathy with recovered ejection fraction: A. Status post abnormal treadmill stress test 02/01/[address] depressi on in V3 and V4 associated with chest pain. B. Status post left heart catheterization by Dr. Garcia at [facility] on 02/01/10 showing 90% stenosis of the proximal RCA with luminal irregularities mid and proximal LAD and circumflex. C. Status post successful percutaneous intervention with stenting of the osti um of the RCA with Promus 4 X 15 mm stent. Recommended to be on Plavix for one year, on 05/14, by Dr. Obrien, at [facility]. D. Echocardiogram 01/24/14 shows LVEF is 55-60%. Mild to moderate aortic steno sis. When compared to echo cardiology on 08/12/11, aortic valve stenosis is a new finding. E. Coronary artery bypass grafting x 2: Left internal mammary to left anterior descending, saphenous vein graft to right posterior descending artery with endoscopic vein harvest from [facility] on 01/26/2014. F. Nuclear Stress Test 01/12/15 [...] Symptoms with moderate exertion of t he [place] [employer] functional class. Heart failure stage [...] pacemaker implantation [address] Garcia at [facility]. C. Today, 05/28/2018, his device interrogation shows normal and stable device fu nction as listed above. He does not have remote monitoring and requires office visits to [facility] device every 6 months. He is [...] this chart may have been created with [employer] voice recognition software. Occasi onal wrong-word or [...] | Visit | | MD Jaison Pascual [place] | | | | | | [facility] | | | | | | [place] [address] | | | | | | [phone] | | | | | | | | +--------+---------+ + + + | 11/26/ | Office | Cardiology | Taylor Heard, | | | 2018 | Visit | | [facility] | | | | | | [address] [place] | | | | | | [phone] | | | | | | | [...] MD | | | | | | ([id number]) on 05/28/2018 | | | | | [...] | [facility], | [facility] | | COMPUTER SUPPORT SPECIALIST INSTRUCTOR 05/28/2018 12:40 PATIENT NAME: Fabricio Omalley | [...] + + | Coronary artery disease involving eastern cherokee coronary artery of eastern cherokee heart without | | angina pectoris | [...]
--- OUTSIDE RECORDS SUMMARY | ~2018-08-23 | XMS | Encounter Summary ---
Demographics + + + | Address | [address] | | | [place] [address] | + + + | Home Phone | | + + + | Preferred Language | Unknown | + + + | Marital Status | | + + + | Zoroastrianism Affiliation | 1013 | + + + | Race | Unknown | + + + | Ethnic Group | Unknown | + + + Author + + + | Author | [facility] | | | and [place] | + + + | Organization | [facility] | | | and [place] | + + + | Address | Unknown | + + + | Phone | Unavailable | + + + Support + + + + + | Name | Relationship | Address | Phone | + + + + + | Yuri Ghotra | ECON | [address] | | | | | [place] | | | | | [address] | | + + + + + | Fabricio Ghotra | ECON | Unknown | | + + + + + Care Team Providers + +------+ + | Care Hospital Chaplain Name | Role | Phone | + +------+ + | Dano Chacon MD | PCP | | + +------+ + Encounter Details +--------+ + + + + | Date | Type | Department | Care Team | Description | +--------+ + + + + | 05/26/ | Abstract | [facility] [place] | [place], | | | 2019 | | CARDIOLOGY [address] | GRAPHITE DISK ASSEMBLER [address] | | | | | [place], | [facility] [place] | | | | | [place] [address] | [address] | | | | | [phone] | | | +--------+ + + + [...] | Visit | | MD Samara [address] | | | | | | [place] | | | | | | [place] [address] | | | | | | [phone] | | | | | | | | +--------+---------+ + + + | 11/26/ | Office | Cardiology | Taylor Heard, | | | 2018 | Visit | | GRAPHITE DISK ASSEMBLER [address] | | | | | | [place] | | | | | | [address] | | | | | | | | +--------+---------+ + + + documented as of this encounter Procedures + +--------+ + + + | Procedure Name | Priori | Date/Time | Associated Diagnosis | Comments | | | ty | | | | + +--------+ + + + | EXTERNAL LAB: | Routin | 04/30/2018 | | Results for this | | TRIGLYCERIDES | e | | | procedure are in the | | | | | | results section. | + +--------+ + + + | EXTERNAL LAB: | Routin | 04/30/2018 | | Results for this | | CHOLESTEROL, HDL | e | | | procedure are in the | | | | | | results section. | + +--------+ + + + | EXTERNAL LAB: | Routin | 04/30/2018 | | Results for this | | CHOLESTEROL, TOTAL | e | | | procedure are in the | | | | | | results section. | + +--------+ + + + | EXTERNAL LAB: | Routin | 04/30/2018 | | Results for this | | CHOLESTEROL, LDL | e | | | procedure are in the | | | | | | results section. | + +--------+ + + + documented in this encounter Results External Lab: Triglycerides (04/30/2018) + +-------+ + + + | Component | Value | Ref Range | Performed | Pathologist | | | | | At | Signature | + +-------+ + + + | Triglycerid | 48 | 30 - 150 | EXTERNAL | | | es, | | | LAB | | | External | | | | | + +-------+ + + + + + | Specimen | + + | Blood | + + + +---------+ + + | Performing | Address | City/State/Zipcode | Phone Number | | Organization | | | | + +---------+ + + | EXTERNAL LAB | | | | + +---------+ + + External Lab: Cholesterol, HDL (04/30/2018) + +-------+ + + + | Component | Value | Ref Range | Performed | Pathologist | | | | | At | Signature | + +-------+ + + + | HDL | 45.5 | 40 mg/dl | EXTERNAL | | | Cholesterol | | | LAB | | | , External | | | | | + +-------+ + + + + + | Specimen | + + | Blood | + + + +---------+ + + | Performing | Address | City/State/Zipcode | Phone Number | | Organization | | | | + +---------+ + + | EXTERNAL LAB | | | | + +---------+ + + External Lab: Cholesterol, Total (04/30/2018) + +-------+ + + + | Component | Value | Ref Range | Performed | Pathologist | | | | | At | Signature | + +-------+ + + + | Cholesterol | 142 | 200 mg/dl | EXTERNAL | | | , Total, | | | LAB | | | External | | | | | + +-------+ + + + + + | Specimen | + + | Blood | + + + +---------+ + + | Performing | Address | City/State/Zipcode | Phone Number | | Organization | | | | + +---------+ + + | EXTERNAL LAB | | | | + +---------+ + + External Lab: Cholesterol, LDL (04/30/2018) + +-------+ + + + | Component | Value | Ref Range | Performed | Pathologist | | | | | At | Signature | + +-------+ + + + | LDL | 87 | 100 | EXTERNAL | | | Cholesterol | | | LAB | | | , External | | | | | + +-------+ + + + + + | Specimen | + + | Blood | + + + +---------+ + + | Performing | Address | City/State/Zipcode | Phone Number | | Organization | | | | + +---------+ + + | EXTERNAL LAB | | | | + +---------+ + + documented in this encounter Visit Diagnoses Not on filedocumented in this encounter"
--- OUTSIDE RECORDS SUMMARY | ~2018-08-23 | XMS | Clinical Summary ---
Demographics + + + | Address | [address] | | | [place] [address] | + + + | Home Phone | | + + + | Preferred Language | Unknown | + + + | Marital Status | | + + + | Jewish Affiliation | 1013 | + + + | Race | Unknown | + + + | Ethnic Group | Unknown | + + + Author + + + | Author | [facility] | | | and [place] | + + + | Organization | [facility] | | | and [place] | + + + | Address | Unknown | + + + | Phone | Unavailable | + + + Support + + + + + | Name | Relationship | Address | Phone | + + + + + | Yuri Ghotra | ECON | [address] | | | | | [place] | | | | | [address] | | + + + + + | Fabricio Ghotra | ECON | Unknown | | + + + + + Care Team Providers + +------+ + | Care Cellophane Worker Name | Role | Phone | + +------+ + | Dano Chacon MD | PP | | + +------+ [...] | + + + + + + Medications + + + +---------+------+------+-------+ | Medication | Sig | Dispensed | Refills | Star | End | Statu | | | | | | t | Date | s | | | | | | Date | | | + + + +---------+------+------+-------+ | NITROSTAT 0.4 MG | Place 1 tablet under | | 0 | 08/2 | | Activ | | [...] Resmed | | 0 | | | Activ | | | [...] mg by mouth | | 0 | 06/1 | | Activ | | (PLAQUENIL) 200 mg | Daily. | | | 2/20 | | e | | tablet | | | | 18 | | | + + + +---------+------+------+-------+ | ferrous sulfate | Take 1 tablet by | | 0 | | | Activ | | (IRON) 325 (65 Fe) | mouth Daily. | | | | | e | | MG TABS | | | | | | | + + + +---------+------+------+-------+ | diclofenac | Apply 4 g topically | | 0 | | | Activ | | (VOLTAREN) 1% GEL | 4 times daily. | | | | | e | + + + +---------+------+------+-------+ Active Problems + + + | Problem | Noted Date | + + + | Idiopathic hypotension | 10/17/2017 | + + + | C. difficile colitis | 08/01/2017 | + + + | Acute bacterial endocarditis | 08/01/2017 | + + + | Diarrhea, unspecified type | 07/31/2017 | + + + | Severe protein-calorie malnutrition | 07/28/2017 | + + + | [...] | setting of bacteremia. Likely type 2 [place]. Prior cardiac | | catheterization showed patent bypass grafts. 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 | + + + + + | Rheumatoid arthritis | 08/28/2015 | + + + | Carcinoma of base of tongue | 08/08/2015 | + + + | [...] + + | Malignant neoplasm of tongue | 08/09/2014 | + + + | [...] + + + + | Overview: Echocardiogram on 05/28/2018 shows, mild biatrial | | dilatation, normal left ventricular size with a mild concentric | | left ventricular hypertrophy, left ventricular systolic function | | is preserved, LVEF is 55%, grade 1 left ventricular diastolic | | dysfunction, evidence of a normally functioning #29 Reid | | Sapient transcatheter aortic valve replacement, peak velocity | | across aortic valve is 2 m/s with a peak gradient of 16 mmHg, | | valve seated solidly, there is a trace transvalvular aortic valve | | insufficiency, mildly thickened and calcified mitral valve | | suggesting myxoma change, there is a mild mitral valve | | regurgitation, mild tricuspid valve regurgitation, mild pulmonary | | hypertension with a peak systolic pressure of 45-50 mmHg, not | | well-visualized IVC, when compared to echocardiography on | | 07/24/17, no significant changes, by Savanna Garcia MD. Last | | Assessment & Plan: Blood pressure appears to be adequately | | controlled | + + + + + | Hyperlipidemia, mixed | 06/17/2011 | + + + | JULIANNE - Uses CPAP | 06/17/2011 | + + + | PACEMAKER, PERMANENT, 03/11/11, MEDTRONIC - SUW | 03/11/2011 | + + + + + | Overview: Formatting of this note might be different from the | | original. MODEL NAME MODEL# SERIAL# DATE IMPLANTED GENERATOR | | Medtronic Adapta ADDR01 [id number] 03/11/2011 RV LEAD Medtronic | | Active bipolar Capsurefix 4076/52 cm [id number] 03/11/2011 A LEAD | | Medtronic Active bipolar Capsurefix 4076/45 cm [id number] | | 03/11/2011 | + + + [...] + + | Coronary artery disease involving [place] coronary artery of | | | [place] heart without angina pectoris | | [...] left heart catheterization by Dr. Garcia at [facility] | | [place] on 02/01/10 showing 90% stenosis of the proximal RCA with | | luminal irregularities mid and proximal LAD and circumflex. | | Status post successful percutaneous intervention with stenting of | | the ostium of the RCA with Promus 4 X 15 mm stent. Recommended | | to be on Plavix for one year, on 02/02/10, by Dr. Obrien, at | | [facility]. 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 | dysfunction ([facility]) | | | | | | with BRADYCARDIA | | | | | | (Primary Dx); | | | | | | Coronary artery | | | | | | disease involving | | | | | | [place] coronary | | | | | | artery of [place] tribe | | | | | | [...] type | | | | | | ([facility]); Chronic | | | | | | combined systolic | | | | | | and diastolic CHF | | | | | | (congestive heart | | | | | | failure) ([facility]); | | | | | | PACEMAKER, | | | | | | PERMANENT, 03/11/11, | | | | | | MEDTRONIC - SUW; | | | | | | Pacemaker | | | | | | reprogramming/check | | | | | | DO NOT DELETE | +--------+ + + + + | 05/28/ | Hospital | | Marcos Lerma, | S/p TAVR | | 2019 | Encounter | | MD | (transcatheter | | | | | | aortic valve | | | | | | replacement), | | | | | | bioprosthetic | +--------+ + + + + | 05/26/ | Abstract | | Taylor Heard, | | | 2018 | | | CHAIN MAKER MACHINE | | +--------+ + + + + from Last 3 Months Immunizations + + + + | Name | Dates Previously Given | Next Due | + + + + | INFLUENZA 63 Y OR >, | 02/16/2017, 03/25/2014, 02/24/2013, | | | TRIVALENT HIGH-DOSE | 03/16/2012 | | + + + + | INFLUENZA PF 63 Y OR | 01/21/2017 | | | >,TRIVALENT (FLUAD) | | | + + + + | INFLUENZA PF | 03/26/2016 | | | QUAD(PED/ADOL/ADULT) | | | | ,PSKT or VIAL | | | + + + + | INFLUENZA PF | 03/08/2015 | | | TRIVALENT(PED/ADOL/A | | | | DULT), PSKT | | | + + + + Family History + + +-------+ + | Medical History | Relation | Name | Comments | + + +-------+ + | Cancer | Father | | | + + +-------+ + | Cancer | Mother | | | + + +-------+ + | No known problems | Sister | Karen | | + [...] recent travel history available. | + + Last Filed Vital Signs + + + + | Vital Sign | Reading | Time Taken | + + + + | Blood Pressure | 116/52 | 05/28/2018 1111 PST | + + + + | Pulse | 80 | 05/28/2018 1111 PST | + + + + | Temperature | 36.7 C (98 F) | 08/01/2017 07 PDT | + + + + | Respiratory Rate | 20 | 05/28/2018 1111 PST | + + + + | Oxygen Saturation | 96% | 10/20/2017 0909 PDT | + + [...] 1111 PST | + + + + Plan of Treatment +--------+---------+ + + + | Date | Type | Specialty | Care Team | Description | +--------+---------+ + + + | 09/01/ | Office | | Moris Hassan | | 2018 | Visit | | MD Jaison Pascual | | | | | | [address] | | | | | | [place] [address] | | | | | | [phone] | | | | | | | | +--------+---------+ + + + | 11/26/ | Office | | Taylor Heard, | | | 2018 | Visit | | CHAIN MAKER MACHINE [address] | | | | | | [place] | | | | | | [address] | | | | | | | [...] | + + + + + | Adult Annual | | | | | Wellness Visit | 5 | | | + + + + + | Vaccine: Influenza | | 02/16/2017, 01/21/2017, | | | (Season Ended) | 9 | 03/26/2016, Additional history | | | | | exists | | + + + + + Implants + +--------+--------+ +--------+--------+--------+ | Implanted | Type | Area | Manufacture | Device | Shelf | Model | | | | | r | | Expira | / | | | | | | Identi | tion | Serial | | | | | | fier | Date | / Lot | + +--------+--------+ +--------+--------+--------+ | Medtronic Adapta Dual | Pacema | Left: | MEDTRONIC - | | | [id number] | | Lead-03/11/2011Implanted: | ker | Chest | MEDT | | | | | 03/11/2011 by Jose, | | Wall | | | | /[id number] | | MD Savanna (Quantity not on | | | | | | [id number] | | file)Explanted: | | | | | | / | + +--------+--------+ +--------+--------+--------+ | Kit Hrt Vlv Tavr Mattie 3 | Tissue | | REID | | 04/24/ | 9600CM | | 29mm - [id number]: | Heart | | LIFESCIENCE | | 2019 | 29A | | Qty: 1 on 07/02/2017 by | Valve | | S LLC - | | | /[id number] | | Roverto Goldstein MD | | | EDLS | | | 21 / | + +--------+--------+ +--------+--------+--------+ | Graft Patch [place] 1x5x10 - | | Right: | WLGO | | 11/02/ | [id number] | | [id number]: Qty: 1 | | Face | | | 2014 | [id number] / | | on 08/30/2014 by Ronn Patrick | | | | | | | | E, MD | | | | | | /[id number] | | | | | | | | 25 | + +--------+--------+ +--------+--------+--------+ | Mesh Ultrapro 2.4inx4.3in - | | Right: | JJHCS | | 05/02/ | [id number] / | | [id number]: Qty: 1 on | | | ETHICON [...] | 05/02/ | [id number] / | | [id number]: Qty: 1 on | | Inguin | ETHICON | | 2019 | | [...] + + from Last 3 Months Results ECG 12 lead (05/28/2018 11:27 PST) [...] MD | | | | | | ([id number]) on 05/28/2018 | | | | | [...] | Taylor Heard, | [facility] | | CHAIN MAKER MACHINE 05/28/2018 12:40 PATIENT NAME: Fabricio Omalley | | | [facility] 1940: AGE: 77 y.o. Device | [...] + + | Performing | Address | City/State/[facility] Cent[facility]ode | Phone Number | | Organization | | | | + +---------+ + + | [facility] | | | | + +---------+ + + ECHO Complete (05/28/2018 9:55 PST) + +--------+ [...] | | | | | | n Young | | | | | + +--------+ [...] a normally functioning #29 | | | Reid Sapient transcatheter aortic valve replacement. Peak | [...] 3 Months Insurance + +--------+ +--------+ + +--------+ | Payer | Benefi | Subscriber | Effect | Phone | Address | Type | | | t Plan | ID | ankit | | | | | | / | | Dates | | | | | | Group | | | | | | + +--------+ +--------+ + +--------+ | MEDICARE | MEDICA | [id number] | 12/04/19 | [phone] | | Medica | | | RE | | 04-Pre | 5 | | re | | | PART A | | sent | | | | | | AND B | | | | | | + +--------+ +--------+ + +--------+ | MODA | MODA | [id number] | 07/04/19 | [phone] | [address] | Indemn | | | HEALTH | | 08-Pre | 9 | [phone] | ity | | | MDCR | | sent | | [place], | | | | [place] | | | | [place] [address] | | + +--------+ +--------+ + +--------+ + +--------+ +--------+ + + | Guarantor Name | Accoun | Relation to | Date | Phone | Billing Address | | | t Type | Patient | of | | | | | | | | | | + +--------+ +--------+ + + | Fabricio Ghotra | Person | Self | [birth year] | [address] | | | [place] | | 1941 | [phone] | [place] | | | [place] | | | [address] (Home) | [address] | + +--------+ +--------+ + + Advance Directives Patient has advance care planning documents, and code status on file. For more information, please contact:[facility] [place] [address] + + + + + | Code Status | Date | Date | Comments | | | Activated | Inactivated | | + + + + + | Full Code | 07/26/2017 | 08/01/2017 | | | | 9:10 | 16:18 | | + + + + + + + + +---+ | | | | | + + + +---+ | Full Code | 07/25/2017 | 07/26/2017 | | | by default | 0:29 | 9:10 | | | - TBD | | | | + + + +---+ + + + +---+ | | | | | + + + +---+ | Full Code | 07/02/2017 | 07/04/2017 | | | | 14:17 | 13:13 | | + + + +---+ + + + +---+ | | | | | + + + +---+ | Full Code | 11/01/2015 | 11/01/2015 | | | | 13:26 | 17:21 | | + + + +---+ + + + +---+ | | | | | + + + +---+ | Full Code | 08/30/2014 | 08/30/2014 | | | | 13:29 | 15:33 | | + + + +---+
--- OUTSIDE RECORDS SUMMARY | ~2018-08-23 | XMS | Clinical Summary ---
Demographics + + + | Address | [address] | | | [place] [address] | + + + | Home Phone | | + + + | Preferred Language | Unknown | + + + | Marital Status | | + + + | Islam Affiliation | 1013 | + + + | Race | Unknown | + + + | Ethnic Group | Unknown | + + + Author + + + | Author | [facility] | | | and [place] | + + + | Organization | [facility] | | | and [place] | + + + | Address | Unknown | + + + | Phone | Unavailable | + + + Support + + + + + | Name | Relationship | Address | Phone | + + + + + | Yuri Ghotra | ECON | [address] | | | | | [place] | | | | | [address] | | + + + + + | Fabricio Ghotra | ECON | Unknown | | + + + + + Care Team Providers + +------+ + | Care Ivory Carver Name | Role | Phone | + [...] | setting of bacteremia. Likely type 2 [place]. Prior cardiac | | catheterization showed patent [...] | vegetation noted. No obvious vegetations on [place] | | valves.07/02/17: Status post transfemoral TAVR [...] IMPLANTED GENERATOR | | Medtronic Adapta ADDR01 [id number] 03/11/2011 RV LEAD Medtronic | | Active bipolar Capsurefix 4076/52 cm [id number] 03/11/2011 A LEAD | | Medtronic Active bipolar Capsurefix 4076/45 cm [id number] | | 03/11/2011 | + + + [...] + + | Coronary artery disease involving sw[place] coronary artery of | | | sw[place] heart without angina pectoris | | + [...] left heart catheterization by Dr. Garcia at [facility] | | [place] on 02/01/10 showing 90% stenosis of the proximal RCA with | | luminal irregularities mid and proximal LAD and circumflex. | | Status post successful percutaneous intervention with stenting of | | the ostium of the RCA with Promus 4 X 15 mm stent. Recommended | | to be on Plavix for one year, on 02/02/10, by Dr. Obrien, at | | [facility]. 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 | dysfunction ([facility]) | | | | | | with BRADYCARDIA | | | | | | (Primary Dx); | | | | | | Coronary artery | | | | | | disease involving | | | | | | [place] coronary | | | | | | artery of [place] | | | | | | heart [...] type | | | | | | ([facility]); Chronic | | | | | | combined systolic | | | | | | and diastolic CHF | | | | | | (congestive heart | | | | | | failure) ([facility]); | | | | | | PACEMAKER, [...] | | | 2018 | | | HANDLE MACHINE OPERATOR | | +--------+ + + + + [...] | | | | | | [place] [address] | | | | | | [phone] | | | | | | | | +--------+---------+ + + + | 11/26/ | Office | | Taylor Heard, | | | 2018 | Visit | | HANDLE MACHINE OPERATOR [address] | | | | | | St [place] | | | | | | [address] | | | | | | | [...] 04/24/ | 9600CM | | 29mm - [id number]: | Heart | | LIFESCIENCE | | 2019 | 29A | | Qty: 1 on 07/02/2017 by | Valve | | S LLC - | | | /[id number] | | Roverto Goldstein MD | | | EDLS | | | 21 / | + +--------+--------+ +--------+--------+--------+ | Graft Patch [place]-Sancho 1x5x10 - | | Right: | WLGO | | 11/02/ | [id number] | | [id number]: Qty: 1 | | Face | | | 2014 | [id number] / | | on 08/30/2014 by Ronn Patrick | | | | | | | | E, MD | | | | | | /[id number] | | | | | | | | 25 | + +--------+--------+ +--------+--------+--------+ | Mesh Ultrapro 2.4inx4.3in - | | Right: | JJHCS | | 05/02/ | UMS3 / | | [id number]: Qty: 1 on | | | ETHICON [...] | 05/02/ | UMS3 / | | [id number]: Qty: 1 on | | Inguin | [...] MD | | | | | | ([id number]) on 05/28/2018 | | | | | [...] | Taylor Heard, | [facility] | | HANDLE MACHINE OPERATOR 05/28/2018 12:40 PATIENT NAME: Fabricio Omalley | | | [facility] : 1940: AGE: 77 y.o. Device | [...] + + | Performing | Address | City/State[facility] | Phone Number | | Organization [...] | | | | | | [place] | | | | | + +--------+ [...] + +--------+ | MEDICARE | MEDICA | [id number] | 12/04/19 | [phone] | | Medica | | | RE | | 04-Pre | 5 | | re | | | PART A | | sent | | | | | | AND B | | | | | | + +--------+ +--------+ + +--------+ | MODA | MODA | [id number] | 07/04/19 | [phone] | [address] | Indemn | | | HEALTH | | 08-Pre | 9 | [phone] | ity | | | MDCR | | sent | | [place], | | | | [place] | | | | [place] [address] | | + +--------+ +--------+ + +--------+ + +--------+ +--------+ + + | Guarantor Name | Accoun | Relation to | Date | Phone | Billing Address | | | t Type | Patient | of | | | | | | | | | | + +--------+ +--------+ + + | Fabricio Ghotra | Person | Self | [birth year] | | [address] | | | [place] | | 1941 | [phone] | [place] | | | [place] | | | [address] (Home) | [address] | + +--------+ +--------+ + + Advance Directives Patient has advance care planning documents, and code status on file. For more information, please contact:[facility] [address] + + + + + | Code [...]
--- OUTSIDE RECORDS SUMMARY | ~2018-08-23 | XMS | Clinical Summary ---
Demographics + + + | Address | [address] | | | [place] [address] | + + + | Home Phone [...] Team Providers + +------+ + | Care Leather Tooler Name | Role | Phone | + +------+ + PP | Unavailable | + +------+ + Source Comments JIGNESH is fully live on both [facility] Ambulatory and [facility] InPatient.[facility] Allergies Not on File Current [...] | + + + + + | Pneumococcal (Adult) | 08/19/200 | | | | (1 of 2 - PCV13) | 4 | | | + + + + + | Influenza (Flu) | | | | | vaccination (#1) | 8 | | | + + + + + Results Not on filefrom Last 3 Months"
--- OUTSIDE RECORDS SUMMARY | ~2018-08-23 | XMS | Encounter Summary ---
Demographics + + + | Address | [address] | | | [place] [address] | + + + | Home Phone | | + + + | Preferred Language | Unknown | + + + | Marital Status | | + + + | Anglican Affiliation | 1013 | + + + | Race | Unknown | + + + | Ethnic Group | Unknown | + + + Author + + + | Author | [facility] | | | and [place] | + + + | Organization | [facility] | | | and [place] | + + + | Address | Unknown | + + + | Phone | Unavailable | + + + Support + + + + + | Name | Relationship | Address | Phone | + + + + + | Yuri Ghotra | ECON | [address] | | | | | [place] | | | | | [address] | | + + + + + | Fabricio Ghotra | ECON | Unknown | | + + + + + Care Team Providers + +------+ + | Care Cold Header Operator Name | Role | Phone | [...] 2019 | | CARDIOLOGY [address] | NURSE RESEARCH [address] | | | | | [place], | [facility] [place] | | | | | [place] [address] | [address] | | | | | [phone] | | | +--------+ + + + [...] | Visit | | MD Samara [address] | | | | | | [place] | | | | | | [place] [address] | | | | | | [phone] | | | | | | | | +--------+---------+ + + + | 11/26/ | Office | Cardiology | Taylor Heard, | | | 2018 | Visit | | NURSE RESEARCH [address] | | | | | | [place] | | | | | | [address] | | | | | | | [...]
--- OUTSIDE RECORDS SUMMARY | ~2018-08-23 | XMS | Encounter Summary ---
Demographics + + + | Address | [address] | | | [place] [address] | + + + | Home Phone | | + + + | Preferred Language | Unknown | + + + | Marital Status | | + + + | Sabianist Affiliation | 1013 | + + + | Race | Unknown | + + + | Ethnic Group | Unknown | + + + Author + + + | Author | [facility] | | | and [place] | + + + | Organization | [facility] | | | and [place] | + + + | Address | Unknown | + + + | Phone | Unavailable | + + + Support + + + + + | Name | Relationship | Address | Phone | + + + + + | Yuri Ghotra | ECON | [address] | | | | | [place] | | | | | [address] | | + + + + + | Fabricio Ghotra | ECON | Unknown | | + + + + + Care Team Providers + +------+ + | Care Rollway Worker Name | Role | Phone | [...] | | | | | , | [address] | | | | | | bioprostheti | Phone: | | | | | | c | [phone] | | | | | | Procedures | Fax: | | | | | | ECHO | [phone] | | | | | | Complete [...] | | | | | , | [address] | | | | | | bioprostheti | Phone: | | | | | | c | [phone] | | | | | | Procedures | Fax: | | | | | | ECHO | [phone] | | | | | | Complete | | | + +--------+ + + + + Encounter Details +--------+ + + + + | Date | Type | Department | Care Team | Description | +--------+ + + + + | 05/28/ | Hospital | [facility] | Marcos Lerma, | S/p TAVR | | 2019 | Encounter | [facility] ECHO [address] | MD [address] | (transcatheter | | | | [place] | [address] [place], [place] | aortic valve | | | | [place] [address] | [address] | replacement), | | | | [phone] | | bioprosthetic | +--------+ + + [...] | Visit | | MD Samara [address] | | | | | | [place] | | | | | | [place] [address] | | | | | | [phone] | | | | | | | | +--------+---------+ + + + | 11/26/ | Office | Cardiology | Taylor Heard, | | | 2018 | Visit | | RENAL TECHNICIAN [address] | | | | | | St [place], [place] | | | | | | [address] | | | | | | | [...] | | | | | | n [place] | | | | | + +--------+ [...] a normally functioning #29 | | | Otoole Sapient transcatheter aortic valve replacement. Peak | [...]
--- OUTSIDE RECORDS SUMMARY | ~2018-08-23 | XMS | Clinical Summary ---
Demographics + + + | Address | [address] | | | [place] [address] | + + + | Home Phone | | + + + | Preferred Language | Unknown | + + + | Marital Status | | + + + | Mandaen Affiliation | Unknown | + + + [...] Providers + +------+ + | Care Director Of Education Name | Role | Phone | + +------+ + PP | Unavailable | + +------+ + Source Comments JIGNESH is fully live on both [facility] Ambulatory and [facility] InPatient.[facility] Allergies Not on File Current Medications [...]
[~2018-08-23 13:31] MED LIST changes: +AUGMENTIN250 MG/5 M GT; +ZOFRAN4 MG GT
--- OUTSIDE RECORDS SUMMARY | 2018-08-23 13:34 | XMS ---
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 Care History Medical/Surgical 07/06/2018 [facility] - Patient is currently established with [facility]. If patient is seen in the ED during business hours. Please contact CHWs at [facility]. Care Recommendation: This patient has had 5 or more Emergency Department visits in the last 12 months.\T\nbsp; Patient requires education on the scope and purpose of the ED as an acute care provider not a Primary Care Provider and should not be utilized for chronic conditions.\T\nbsp; These are guidelines and the provider should exercise clinical judgment when providing care. E.D. VISIT COUNT (12 MO.) 6 DEU[facility] Co[facility] TOTAL 6 NOTE: Visits indicate total known visits. ED/UCC VISIT TRACKING (12 MO.) 08/23/2018 13:32 [facility] [place] TYPE: Emergency COMPLAINT: - DIARRHEA 07/05/2018 18:20 [facility] [place] TYPE: Emergency COMPLAINT: - VOMITING/FEEDING TUBE ISSUE DIAGNOSES: - Allergy status to narcotic agent status - Presence of cardiac pacemaker - Pneumonia, unspecified organism - Vomiting, unspecified - Other intermodal dispatcher (current) drug therapy - Allergy status to other drugs, medicaments and biological substances status - Presence of coronary angioplasty implant and graft - Acute gastritis without bleeding - Personal history of malignant neoplasm of other sites of lip, oral cavity, and pharynx - watermaster (current) use of aspirin - Gastrostomy status 06/09/2018 12:47 [facility] [place] TYPE: Emergency COMPLAINT: - BODY PAIN DIAGNOSES: - Allergy status to narcotic agent status - Presence of cardiac pacemaker - Allergy status to other drugs, medicaments and biological substances status - watermaster (current) use of aspirin - Presence of coronary angioplasty implant and graft - Pain in unspecified joint - MYALGIA, UNSPECIFIED SITE - Other intermodal dispatcher (current) drug therapy 12/24/2017 09:05 [facility] [place] TYPE: Emergency COMPLAINT: - RIB PAIN/FALL 12/07/2017 16:31 [facility] [place] TYPE: Emergency COMPLAINT: - LEFT LEG/ARM SWELLING DIAGNOSES: - Other disorders of glycoprotein metabolism - Allergy status to narcotic agent status - Edema, unspecified - Allergy status to other drugs, medicaments and biological substances status - Other specified soft tissue disorders - Other [facility] (current) drug therapy 11/26/2017 18:25 [facility] [place] TYPE: Emergency COMPLAINT: - FEVER/DIZZIENESS INPATIENT VISIT TRACKING (12 MO.) 12/24/2017 11:41 [facility] [place] TYPE: Medical Surgical COMPLAINT: - PNEUMONIA DIAGNOSES: - nursing home (current) use of insulin - Non-pressure chronic [...] trachea - Sick sinus syndrome 11/27/2017 00:[address] [facility] [place] TYPE: Medical Surgical COMPLAINT: - SEPSIS,C-DIFF,COLITIS [...] Unspecified protein-calorie malnutrition - Anuria and oliguria [email or web address]
== END 2018-08-23 16:41 | disposition home or self-care (01) ==
LOC: ED 13:31
DX: R19.7 Diarrhea, unspecified (principal); Z86.19 Personal history of other infectious and parasitic diseases; Z85.828 Personal history of other malignant neoplasm of skin; Z95.5 Presence of coronary angioplasty implant and graft; Z95.0 Presence of cardiac pacemaker; Z88.5 Allergy status to narcotic agent; Z88.8 Allergy status to other drugs, medicaments and biological substances; Z79.82 Long term (current) use of aspirin
CPT/HCPCS: 80053; 83690; 85025; 87205; 87493; 99284

== ENCOUNTER 2018-10-19 17:04 | Observation (INO) | payer MEDICARE, OTHER ==
[~2018-10-19] VITALS: Ht 165.1 cm; Wt 66.0 kg
--- NOTE | 2018-10-19 19:00 | NUR ---
SHIFT REPORT RECEIVED. PATIENT SITTING IN RECLINER. DENIES ANY NEEDS. CALL LIGHT IN REACH.
--- NOTE | 2018-10-19 19:58 | NUR ---
SPOKE TO DR.BOWER TALAMANTESING MONITORING OF PATIENT'S BLOOD SUGARS. ORDERS FOR SSI AND ACCU CHECKS, VERIFIED VIA REPEAT BACK METHOD.
--- NOTE | 2018-10-19 20:31 | NUR ---
V/S I&O AND BLOOD SUGAR CHECK DONE AND RECORDED.
--- NOTE | 2018-10-19 20:51 | NUR ---
CORRECTIONAL INSULIN PROVIDED PER ORDER. DISCUSSED PLAN FOR DIABETIC CONTROL WITH PATIENT AND HIS SON WHO IS IN THE ROOM. THE PATIENT HAS HIS HOME CPAP, WHICH HE DENIES NEEDING ASSIST SETTING UP. RT WILL VERIFY CPAP SET UP PRIOR TO USING. PATIENT ASKING FOR BENADRYL WHICH HE TAKES AT NIGHT FOR SLEEP. WILL DISCUSS WITH SOON HE IS AVAILABLE. PATIENT DENIES ANY PAIN. APPEARS TO BE RESTING COMFORTABLY IN RECLINER. LUNGS ARE CLEAR. DRESSING CDI, NO DRAINAGE NOTED. ABD SOFT AND NONTENDER, PATIENT DENIES GI UPSET. NO EDEMA NOTED, CMS INTACT. PATIENT DENIES CONCERNS OR QUESTIONS ABOUT PLAN OF CARE. IV FLUIDS PER ORDER, PATIENT HAS YET TO VOID AND DENIES NEEDING TO DO SO AT THIS TIME. REMINDED PATIENT TO CALL FOR ASSIST OR WHEN AMBULATING. PATIENT AGREES. CALL LIGHT IN HAND.
[2018-10-19] MEDS ORDERED: CITALOPRAM HBR20 MG PO (21:36)
[2018-10-19] MEDS ORDERED: FOLIC ACID1 MG PO (21:48)
[2018-10-19] MEDS ORDERED: PLAQUENIL200 MG PO (21:49)
[2018-10-19] MEDS ORDERED: MULTI VITAMIN1 EACH PO (21:50)
[2018-10-19] MEDS ORDERED: SYNTHROID50 MCG PO (21:50)
[2018-10-19] MEDS ORDERED: DELTASONE20 MG PO (21:52)
--- NOTE | 2018-10-19 21:56 | NUR ---
ON THE UNIT, VERBAL ORDERS RECEIVED FOR PRN HS IV BENADRYL. MD REQUEST WE START WITH 12.5MG TO AVOID OVERSEDATION. VERIFIED VIA REPEAT BACK.
[2018-10-19] MEDS ORDERED: AZULFIDINE500 MG PO (21:57)
[2018-10-19] MEDS ORDERED: JEVITY 1.5 CAL237 ML PO (22:06)
[2018-10-19] MEDS ORDERED: VOLTAREN100 GM TOP (22:07)
[2018-10-19] MEDS ORDERED: MAPAP325 MG PO (22:10)
--- NOTE | 2018-10-19 22:16 | NUR ---
PATIENT READY FOR BED. PRN BENADRYL PROVIDED. RT IN TO ASSESS HOME CPAP, WHICH HE CLAIMS IS CLEAN AND IN GOOD WORKING ORDER. PATIENT ABLE TO SET UP CPAP WITHOUT ASSISTANCE. IV FLUIDS CHANGED TO LR FROM D5LR. DISCUSSED THIS WITH PATIENT. SEEMA LUIS ATTEMPTED TO PLACE SCDS ON PATIENT, WHICH HE REFUSED STATING "THEY KEEP ME UP ALL NIGHT, I'VE TRIED THEM". PATIENT UNDERSTAND INDICATION FOR SCDS AND DECLINES TO WEAR THEM AT THIS TIME. LIGHTS TURNED OUT AND DOOR CLOSED PER REQUEST.
--- NOTE | 2018-10-20 01:54 | NUR ---
PATIENT'S VS AND BLOOD GLUCOSE CHECKS. VS WNL. BGC 90, NO INSULIN COVERAGE. PATIENT DENIES ANY NEEDS. RESTING IN BED WITH HOME CPAP IN PLACE. CALL LIGHT IN REACH.
--- NOTE | 2018-10-20 04:30 | NUR ---
PATIENT APPEARS TO BE SLEEPING. HOME CPAP IN PLACE. RR 18. CALL LIGHT IN REACH.
--- NOTE | 2018-10-20 05:41 | NUR ---
PATIENT ARRIVED VIA DIRECT ADMIT LAST NIGHT. PATIENT HAS BEEN NPO SINCE 10/19. PATIENT ALERT AND ORIENTED X4. DENIES PAIN. VS STABLE. PEG TUBE SITE COVERED IN 'S OFFICE, NO DRAINAGE. DRESSING LEFT IN PLACE. PLAN FOR SURGERY TODAY. CONSENT ON CHART, NOT SIGNED. PATIENT SLEPT MOST OF THE NIGHT, USED HOME CPAP. SBA W/CANE FOR AMBULATION. LR @100. URINE OUTPUT QS. ACCU CHECKS WITH SSI Q6H.
--- NOTE | 2018-10-20 05:48 | NUR ---
JANITORIAL ACCOUNT MANAGER IN ROOM FOR MORNING VS. PATIENT AWAKE AND UP TO THE BATHROOM. SLIGHTLY UNSTEADY ON HIS FEET, USES CANE. PATIENT DENIES ANY GI DISCOMFORT OR PAIN THIS MORNING. IV FLUIDS PER ORDER, SITE WNL. CALL LIGHT IN REACH.
--- NOTE | 2018-10-20 06:46 | NUR ---
CONSENT SIGNED AND ON THE CHART, WITNESSED BY THIS RN.
--- NOTE | 2018-10-20 09:37 | NUR ---
ASSESSED PT BP MANUALLY AFTER MILL SET UP AMOS STATED IT WAS IN THE 80'S . IT WAS INDEED 86\44. CALLED DR PASTRANA, HE ORDERED 250ML\HR.
--- NOTE | 2018-10-20 09:50 | NUR ---
DID A PRE-PROCEDURE WIPE DOWN ON PT. CAMI KENNEDY HELPED SHE HUNG STRAIGHT TUBING AND CHANGED HIS LINENS. DOMINGUEZ FROM DAY SURGERY CAME AND GOT PT AT 0913
--- NOTE | 2018-10-20 10:15 | NUR ---
PATIENT CURRENTLY IN SURGERY TO HAVE PEG TUBE REPLACED.
--- NOTE | 2018-10-20 11:08 | NUR ---
pt in surgery. surgery wipe down given.
--- NOTE | 2018-10-20 12:26 | NUR ---
10/20/18 1226 Emily Mata 1150-PATIENT ARRIVED TO PACU ON 10L MASK STRIDOR HEARD ON ARRIVAL PATIENT NONAROUSABLE JAW THRUST. PATHIENTS JAW AND TISSUE IS VERY FIRM. PATIENT OPENING EYES TO VERBAL STIMULI BELLA MONAHAN AT BEDSIDE RACEIC EPI NEBULIZER ORDERED AND GOING. LUNGS COARSE/DIM. PATIENT DOES HAVE PACEMAKER. SR. DRESSING TO ABDOMEN WITH PEG TUBE CDI SCANT AMT OF DRAINAGE ON GAUZE. 1155-PATIENT COUGHS ON INSTRUCTION NONPRODUCTIVE. DROWSY. REACTIVE TO VOICE. 1200-PATIENT REACTIVE TO VOICE DROWSY ABLE TO STATE NAME AND PLACE. PATIENT ENCOURAGED TO TAKE DEEP BREATHES. PLACED ON 6L MASK RR EVEN DENIES PAIN OR NAUSEA. 1223-BP'S STARTING TO RANGE FROM 80'S-70'S SYSTOLIC. BP CUFF READJUSTED HOB ELEVATED AFTER BREATHING TREATMENT WAS COMPLETED. IVF INFUSING BELLA MONAHAN ADMINISTERED EPHEDRINE IVP. PATIENT DROWSY REPORTS "HARD TO WAKE UP" PATIENT DENIES SHORTNESS OF BREATHE. 2L OXYMASK
--- NOTE | 2018-10-20 14:27 | NUR ---
PATIENT WAKING UP, DENIES PAIN, DENIES NEED TO VOID.
--- NOTE | 2018-10-20 15:48 | NUR ---
PATIENT UP TO VOID, VERY UNSTEADY ON HIS FEET, REPORTS VERTIGO AT BASELINE. PATIENT UP TO CHAIR. 200ML H20 GRAVITY FED TO PEG TUBE, PATIENT TOLERATING WELL SO FAR. PATIENT DENIES OTHER NEEDS AT THIS TIME.
--- NOTE | 2018-10-20 16:11 | EKG ---
[facility] [address] [facility] [place] [address] Signed Atrial-paced rhythm Left bundle branch block Abnormal ECG When compared with ECG of 07-APR-2018 09:32, T wave inversion less evident in Inferior leads Confirmed by SANYA BENNETT DO ([id number]) on 10/20/2018 4:11:37 PM Electronically Signed By: SANYA BENNETT DO 10/20/18 1611 PATIENT NAME: NAJMA DORSEY SILAS Electrocardiogram DATE OF : 36 PHYSICIAN: SANYA BENNETT DO REPORT #: [id number] REPORT IS CONFIDENTIAL AND NOT TO BE RELEASED WITHOUT AUTHORIZATION
--- NOTE | 2018-10-20 16:37 | NUR ---
PATIENT TO SURGERY TODAY TO HAVE PEG TUBE REPLACED. TUBE IS PATENT, FLUSHED WITH 200ML H20, PATIENT HAS 2 CANS OF JEVITY 1.5 FOR DINNER AND ENDORSED "FEELING FULL" TUBE FLUSHED WITH 50ML H2O AFTER FEEDING. PATIENT UP TO CHAIR WITH FAMILY, DENIES OTHER NEEDS.
--- NOTE | 2018-10-20 19:05 | NUR ---
SHIFT REPORT RECEIVED. PATIENT UP TO THE BATHROOM WITH SEEMA TRINIDAD.
--- NOTE | 2018-10-20 19:18 | NUR ---
CHARGE NURSE REPORT RECEIVED. PT IN BED. DENIES NEEDS.
--- NOTE | 2018-10-20 20:55 | NUR ---
EVENING INSULIN PROVIDED AND PRN BENADRYL PER PATIENT REQUEST FOR SLEEP. PATIENT IS ALERT AND STATES HE FEELS GOOD OVERALL. NO GI UPSET. PEG TUBE FLUSHED EASILY WITH 100ML TAP WATER. ABD SOFT AND NONTENDER. LUNGS ARE CLEAR, UPPER AIRWAY HAS HIGH PITCHED WHEEZE. PATIENT DENIES THROAT PAIN OR FEELING SOB. TOLERATING ROOM AIR. CONTINUOUS PULSE OX IN PLACE. PATIENT'S CPAP AT BEDSIDE. PATIENT REQUEST LIGHTS TO BE TURNED OFF AND DOOR CLOSED, THIS RN EXPLAINED THE IMPORTANCE OF HEARING THE PULSE OX. PATIENT AGREED TO HAVE DOOR MOSTLY CLOSED. CALL LIGHT IN HAND.
--- NOTE | 2018-10-20 22:30 | NUR ---
PATIENT APPEARS TO BE SLEEPING SOUNDLY. RR 20. CPAP IN PLACE. O2 SAT 96% CALL LIGHT IN REACH.
--- NOTE | 2018-10-21 00:59 | NUR ---
PATIENT WOKE EASILY WHEN RN ENTERED ROOM. PATIENT DENIES ANY NEEDS. CPAP IN PLACE. O2 SAT 96%. CALL LIGHT IN REACH.
--- NOTE | 2018-10-21 03:00 | NUR ---
PATIENT RESTING IN BED. EYES OPENED WHEN RN ENTERED ROOM. CORRECTIONAL INSULIN PROVIDED PER SLIDING SCALE. PATIENT DENIES ANY NEEDS. IV FLUIDS PER ORDER, SITE WNL. NO NEW DRAINAGE AT PEG TUBE SITE. NO SIGNS OF RESPIRTORY DISTRESS. O2 SAT 100%. CPAP IN PLACE. CALL LIGHT IN REACH.
--- NOTE | 2018-10-21 04:00 | NUR ---
RN ENTERED PATIENT'S ROOM TO ASSESS THE PULSE OX ALARM. PATIENT WAS OUT OF BED WITH PULSE OX OFF OF HIS BODY. PATIENT REPORTS BEING UNABLE TO MAKE IT TO THE BATHROOM TO HAVE A BM DUE TO THE IV AND PULSE OX BEING ATTACHED TO HIM. PATIENT COULD NOT FIND THE CALL LIGHT, WHICH WAS HANGING OFF THE BED ATTACHED TO THE BED RAIL. PATIENT SOILED HIMSELF. ASSISTED PATIENT INTO BATHROOM AND PROVIDED PARTIAL BATH TO REMOVE BM. NEW CLOTHES PROVIDED. PATIENT FRUSTERATED AND REFUSED TO HAVE PULSE OX OR IV REATTCHED TO HIM. DISCUSSED IMPORTANCE OF BOTH INTERVENTIONS AND PATIENT CONTINUES TO REFUSE. REPORTED TO WET END TESTER. PATIENT BACK TO BED. CPAP ON. CALL LIGHT IN HAND.
--- NOTE | 2018-10-21 06:56 | NUR ---
PATIENT SLEPT WELL THIS SHIFT. VS STABLE. TOLERATING ROOM AIR. SBA TO BATHROOM. GOOD OUTPUT. PATIENT HAS DIFFICULTY GETTING TO THE BATHROOM THIS MORNING DUE TO IV TUBING AND PULSE OX. PATIENT THEN REFUSED THESE SINCE 0400. CHARGE NURSE AWARE. PEG TUBE FLUSHES EASILY, NO NEW DRAINAGE ON GAUZE.
--- NOTE | 2018-10-21 06:56 | NUR ---
PATIENT UP IN THE BATHROOM. HAVING LOOSE STOOLS. STATES THIS IS NORMAL FOR HIS WITH TUBE FEEDINGS. DENIES GI UPSET. ALLOWED FOR PRIVACY.
--- NOTE | 2018-10-21 07:32 | NUR ---
PT RESTING SUPINE IN BED, UPPER AIRWAY WHEEZE AUDIBLE ON EXHALATION, PER CAMI ROONEY THIS HAS BEEN PRESENT SINCE EGD COMPLETED YESTERDAY AND HAS NOT WORSENED. PT DENIES SOB AND RR EVEN AND UNLABORED AT 18. BEDSIDE REPORT RECEIVED FROM CAMI ROONEY. PER PT REQUEST HE WAS SET UP FOR FEEDING WITH TWO CONTAINERS OF JEVITY AND H2O TO FLUSH. PT UP TO RESTROOM INDEPENDANTLY WITH STEADY GAIT. PT DENIES NEEDS/CONCERNS.
--- NOTE | 2018-10-21 07:54 | OR ---
[facility] [address] [place], [place] [address] Signed DATE OF OPERATION: 10/20/2018 SURGEON: Yossi Pastrana MD PREOPERATIVE DIAGNOSES: 1. Dislodged gastrostomy tube (4-5 days). 2. Squamous cell carcinoma base of tongue, status post radiation therapy. 3. Severe malnutrition. POSTOPERATIVE DIAGNOSES: 1. Dislodged gastrostomy tube (4-5 days). 2. Squamous cell carcinoma base of tongue, status post radiation therapy. 3. Severe malnutrition. PROCEDURE: Upper endoscopy with dilation of G-tube track (26-Spanish) and placement of new 20-Spanish (7-10 mL balloon) Leonel-Bond gastrostomy tube. ESTIMATED BLOOD LOSS: None. INDICATIONS: Najma is a 77-year-old gentleman who developed squamous cell carcinoma of the base of his tongue. He had received radiation therapy in that regard. He has been using his 20-Spanish gastrostomy tube for all of his pills, hydration and nutrition and so forth. Four or five days ago, apparently he came out and he tried to replace it at home with the balloon inflated. Of course, that went into the subcutaneous space without success. It was bothering him of course, and so he finally called the office, who had him come in yesterday. All of our staff was gone and he had just given himself a tube feeds about 2 hours before that. Consequently, we went ahead and admitted him to our hospital for hydration and allow his stomach to clear. I explained to Najma, his , and his son that we could possibly dilate G-tube site in the morning, but we may have to place a new PEG tube based on our findings. In addition, Yan has tremendous fibrosis of his neck and his throat and he had to have his jaw re-constructed when he fractured from the radiation therapy. There was no moving Yan's head. That is why, he needs a longer gastrostomy tube, so we can see the tube in order to utilize it. I explained to Yan and his there is some risk including, but not limited to gas bloating, crampy abdominal pain, bleeding, perforation, requiring surgery, and missed diagnosis. There is also the risk that we may not be able to get our adult gastroscope down his esophagus. There was also risk with his anesthetic as well particularly given his Electronically Signed By: YOSSI PASTRANA MD 10/21/18 0754 PATIENT NAME: NAJMA DORSEY OPERATIVE REPORT DATE OF : 36 REPORT #: [id number] PHYSICIAN: YOSSI PASTRANA MD PCP: COLLIN COLLAZO MD REPORT IS CONFIDENTIAL AND NOT TO BE RELEASED WITHOUT AUTHORIZATION [facility] [address] [place], [place] [address] Signed airway. They had expressed understanding and wished to proceed. PROCEDURE NOTE: Najma was taken into our endoscopy suite and kept in the supine semi-recumbent position. He was given IV sedation per our nurse languages and literature instructor. The adult gastroscope was introduced and I could just get my adult gastroscope through his upper airway and then it opened up nicely down the rest of the esophagus and into the stomach. We could see his previous gastrostomy site. We went out to the bottom of the antrum and he had a little punctate gastritis, but otherwise quite healthy and no ulcerations. We thought we might try a new PEG tube, but his neck is very stiff and then he went into laryngospasm and bronchospasm and we had to rapidly dilate his previous G-tube site up to 26-Spanish with our sequential dilators. A new 20-Spanish gastrostomy tube was placed, the balloon was deflated, brought back to the stomach and a bolster placed down and dry gauze was placed underneath the bolster. We left it open to vent while he was being resuscitated. We had to intubate him just briefly with the help of a GlideScope to break the laryngospasm and the bronchospasm. Once he had settled down, he was breathing on his own, we were able to extubate him and take him into the recovery room in stable condition. As expected, our two anesthesia providers felt that if he needed anesthetic in the future he probably should not have it done at our small 25 bed critical access hospital. RECOMMENDATIONS: Yan is going to be sent back to his room and we will keep him today, resume his medications and his tube feeds and if everything goes well, we will let him go home tomorrow with his family. MD JARON Olivares/MARGOL /[id number] cc: Yossi Pastrana MD [facility] Clary Collazo MD Electronically Signed By: YOSSI PASTRANA MD 10/21/18 0754 PATIENT NAME: NAJMA DORSEY OPERATIVE REPORT DATE OF : 36 REPORT #: [id number] PHYSICIAN: YOSSI PASTRANA MD PCP: COLLIN COLLAZO MD REPORT IS CONFIDENTIAL AND NOT TO BE RELEASED WITHOUT AUTHORIZATION [facility] [address] [place], [place] [address] Signed Copies: YOSSI PASTRANA MD, LOHITH VEERAPPA MD ~ Electronically Signed By: YOSSI PASTRANA MD 10/21/18 0754 PATIENT NAME: NAJMA DORSEY OPERATIVE REPORT DATE OF : 36 REPORT #: [id number] PHYSICIAN: YOSSI PASTRANA MD PCP: COLLIN COLLAZO MD REPORT IS CONFIDENTIAL AND NOT TO BE RELEASED WITHOUT AUTHORIZATION
--- NOTE | 2018-10-21 08:22 | NUR ---
PT RESTING IN FOWLERS POSITION IN BED, PT ALERT AND ORIENTED AM MEDS ADMINSITERED -SEE EMAR- AND ASSESSMENT COMPLETED. CALL LIGHT IN REACH. PT DENIES FURHTER NEEDS/COCNERNS AT THIS TIME. PT DENIES SOB,NAUSEA, OR PAIN AND APPEARS TO BE IN NO DISTRESS, RR18. PT AGREES TO USE CALL LIGHT IF SYMPTOMS DECELOPE.
--- NOTE | 2018-10-21 13:00 | NUR ---
PT PROVIDED WITH 2 JEVITY FEEDINGS AND 200MLS H2O THROUGH [employer]. PT SELF ADMINISTERS PER HIS REQUEST. CALL LIGHT AND H2O IN REACH. ASSESSMENT COMPLETED. PT SATTING 98% ON RA, NO AUDIBLE WHEEZING WHILE PT IS SITTING UP IN CHAIR AT THIS TIME. PT DENIES SOB, PAIN OR NAUSEA. CALL LIGHT AND H20 IN REACH.
--- NOTE | 2018-10-22 06:58 | DS ---
[facility] [address] [place], [place] [address] Signed ADMISSION DATE: 10/19/2018 DISCHARGE DATE: 10/21/2018 FINAL DIAGNOSES: 1. Displaced gastrostomy tube. 2. 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 PROCEDURES: Upper endoscopy with exchange of 20-Vatican Citizen (7-10 mL balloon) gastrostomy tube. HISTORY OF PRESENT ILLNESS: Yan is a 77-year-old gentleman who had squamous cell carcinoma at the base of his tongue. He had to undergo radiation therapy. Eventually, he has mandible fracture and he had to have that repaired at [facility]. He had a PEG tube originally, but when he was doing better, it was removed. As the radiation matured and the fibrosis advanced, he needed a new PEG tube placed up in [place], [place]. quite sometime before he finally made his way to my office. We had brought him into the hospital a number of months back for upper endoscopy and we replaced that with a 20-Vatican Citizen gastrostomy tube. Yan has to use a standard gastrostomy tube for the length because he cannot flex his neck far enough to see down to use the gastrostomy tube. It is a 7-10 mL balloon. Unfortunately, he has pulled it out a couple times and even though we have had gone through this with him and send him home with a slip tip syringes and so forth. He actually tried to reinsert the gastrostomy tube with the balloon inflated. That of course did not work, it was setting in the subcutaneous space. When he tried to use a tube feed and milk and so forth, most of that simply came out and some of it very slowly went into his stomach. He called and we had him come directly into the office. We admitted him directly from our office over here to the hospital. We just gave himself a tube feeds about 2 hours before, so we kept him n.p.o. overnight with IV fluids and so we could do his exchanges G-tube out following morning. He said it has been at least 4 or 5 days. Amazingly, he still had some air coming out of his stomach when he coughed, so we thought we might be able to dilate that or place a new PEG tube. HOSPITAL COURSE: Yan was taken down to our endoscopy suite. With the help of our anesthesia provider, he was given IV conscious sedation. I could barely get the adult gastroscope through his upper airway. It did take a little pressure to get it through and out into the stomach. His stomach was quite healthy. However, he is having trouble maintaining his oxygen levels. We rapidly dilated his previous gastrostomy tube with our metal dilators up to 26-Vatican Citizen and then we reinserted our new 20-Vatican Citizen gastrostomy tube. The balloon was inflated with about 10 mL of sterile water and brought it up against the abdominal Electronically Signed By: YOSSI PASTRANA MD 10/22/18 0658 PATIENT NAME: NAJMA DORSEY DISCHARGE SUMMARY DATE OF : 36 REPORT #: [id number] PHYSICIAN: YOSSI PASTRANA MD PCP: COLLIN COLLAZO MD REPORT IS CONFIDENTIAL AND NOT TO BE RELEASED WITHOUT AUTHORIZATION [facility] [address] [place] [id number] Signed wall and the bolster was slid down. Some gauze was placed underneath that. He did get intubated with the help of our Glidescope and a second anesthesia provider. In due time, he seemed to have laryngeal spasm, probably some bronchospasm as well. The succinylcholine and the inhaled anesthetic seemed to help in that regard. After a while, we were able to extubate him and take him into recovery room. He did receive some breathing treatments along with some racemic epinephrine. We decided it was best for Yan to stay overnight with respect to the above. He has done well overnight and is quite anxious to go home this morning. He always has some upper airway noise given his fibrosis. We have given him several tube feeds now and he has tolerated quite nicely. I reviewed all this with Yan, his , and his daughter here in the hospital. DISCHARGE PLANS AND MEDICATIONS: Yan is going to be discharged home and we are not going to give him any new prescriptions. He can take his regular medications and his regular tube feeds at home. He really cannot swallow pills at this point and if he has any that cannot be crushed, he needs to review that with his primary care provider and his pharmacist and change those out. He will continue on his usual tube feeds and we were going to have him back in the office in about a week or so for followup and then in about 2 months, we are going to have him back, we are going to exchange G-tube for him in the office and we are going to show Yan and his how to do it and we can do that for several months until Yan and his are comfortable changing out the G-tube. Of course, if he happens to dislodge his G-tube and he cannot get it back in, he obviously needs to come to the emergency room for some help replacing that G-tube. I reviewed all this with Yan, his , and daughter in detail. They have expressed understanding and agreed the above plan. Yossi Pastrana MD ALB/MODL /[id number] cc: MD Yossi Rosas MD Electronically Signed By: YOSSI PASTRANA MD 10/22/18 0658 PATIENT NAME: NAJMA DORSEY DISCHARGE SUMMARY DATE OF : 36 REPORT #: [id number] PHYSICIAN: YOSSI PASTRANA MD PCP: COLLIN COLLAZO MD REPORT IS CONFIDENTIAL AND NOT TO BE RELEASED WITHOUT AUTHORIZATION [address] [address] Signed Copies: COLLIN COLLAZO MD, ANDREW L MD ~ Electronically Signed By: YOSSI PASTRANA MD 10/22/18 0658 PATIENT NAME: NAJMA DORSEY DISCHARGE SUMMARY DATE OF : 36 REPORT #: [id number] PHYSICIAN: YOSSI PASTRANA MD PCP: COLLIN COLLAZO MD REPORT IS CONFIDENTIAL AND NOT TO BE RELEASED WITHOUT AUTHORIZATION
== END 2018-10-21 15:35 | disposition home or self-care (01) ==
LOC: MS 17:04
PROVIDERS: ADMIT Colon & Rectal Surgery
PROC: 0DH63UZ Insertion of Feeding Device into Stomach, Percutaneous Approach (ICD-10-PCS; principal; 2018-10-20 11:00)
DX: Z43.1 Encounter for attention to gastrostomy (principal); C01 Malignant neoplasm of base of tongue; E43 Unspecified severe protein-calorie malnutrition; J38.5 Laryngeal spasm; J98.01 Acute bronchospasm; K29.70 Gastritis, unspecified, without bleeding; J70.1 Chronic and other pulmonary manifestations due to radiation; E11.9 Type 2 diabetes mellitus without complications; E03.9 Hypothyroidism, unspecified; M06.9 Rheumatoid arthritis, unspecified; F32.9 Major depressive disorder, single episode, unspecified; E55.9 Vitamin D deficiency, unspecified; E61.1 Iron deficiency; E53.8 Deficiency of other specified B group vitamins; Y84.2 Radiological procedure and radiotherapy as the cause of abnormal reaction of the patient, or of later complication, without mention of misadventure at the time of the procedure; Z88.8 Allergy status to other drugs, medicaments and biological substances; Z88.5 Allergy status to narcotic agent; Z79.02 Long term (current) use of antithrombotics/antiplatelets; Z95.5 Presence of coronary angioplasty implant and graft; Z95.2 Presence of prosthetic heart valve; Z95.0 Presence of cardiac pacemaker; Z68.23 Body mass index [BMI] 23.0-23.9, adult; Z79.82 Long term (current) use of aspirin; Z79.899 Other long term (current) drug therapy
CPT/HCPCS: 80053; 83735; 84100; 85025; 93005; 93010; 94760; 94762; 96361; 96374; 96376; G0378; J0330; J0690; J1100; J1200; J1815; J2704; J7120; J7512